=== PATIENT | female | born 1970 | race Two or more races ===

== ENCOUNTER 2021-03-08 20:19 | Emergency (ER) | payer MEDICAID ==
[~2021-03-08] VITALS: Ht 160 cm; Wt 63.5 kg
--- NOTE | 2021-03-08 21:00 | NUR ---
PT [facility] FOR GT PLACEMENT. PT ARRIVED W/ A F/C IN PLACED IN GT STOMA. PT IS IN A WHEELCHAIR AND ALERT.
[2021-03-08] MEDS ORDERED: DIATR MEGLU/DIATRIZOATE SODIUM 30 ML BOTTLE (GASTROGRAPHIN) ONE (21:20)
--- NOTE | 2021-03-08 21:44 | NUR ---
Bon sanchez in ED - 03/08/21 at 2145 by ZANE Patient discharged to home in stable condition. Written and verbal after care instructions given. Patient verbalizes understanding of instruction. RX given pt alert asymptomatic
--- NOTE | 2021-03-08 22:34 | NUR ---
PT IS MEDICALLY STABLE FOR D/C PER MD. DRESSING CHANGE ON GT SITE PROVIDED . GT PATENT. Patient discharged to home in stable condition. Written and verbal after care instructions given to the CGs who verbalized understanding of instruction. pt was assisted back to the wc.
[2021-03-08 22:36] VITALS: BP 111/68
== END 2021-03-08 22:36 | disposition home or self-care (01) ==
LOC: ER 20:26
DX: K94.23 Gastrostomy malfunction (principal); G40.909 Epilepsy, unspecified, not intractable, without status epilepticus; E11.9 Type 2 diabetes mellitus without complications
CPT/HCPCS: 43762; 74018; 99284; Q9963

== ENCOUNTER 2021-09-10 08:48 | Inpatient (IN) | payer MEDICAID ==
[~2021-09-10] VITALS: Ht 152.4 cm; Wt 47.6 kg
--- NOTE | 2021-09-10 08:54 | NUR ---
CALLED [facility] [phone] PER CHEMA FISCHER NOT A RESIDENT [address] [facility]. [facility] [id number]
--- NOTE | 2021-09-10 09:03 | NUR ---
To ER bed 8, JATIN RA78 From [facility] Yeni [id number] "SOB/Respiratory distress, was seen in [facility] yesterday for the same reasons RA 90% and tachypneic, non verbal, gtube, breathing even and non labored, connected to monitor, awaiting md orders
--- NOTE | 2021-09-10 09:06 | NUR ---
JATIN RUSSELL From [facility] [phone] "SOB/Respiratory distress. Received the patient on non-rebreather mask mask and saturation is at 98%. Attached to the monitor. Will continue t monitor the patient.
--- NOTE | 2021-09-10 09:11 | NUR ---
CORE CARRIER AT THE BEDSIDE
[2021-09-10] MEDS ORDERED: MINE105O TP (09:29)
[2021-09-10] MEDS ORDERED: LA/L175C GT (09:29)
[2021-09-10] MEDS ORDERED: CALA177L16 TP (09:29)
[2021-09-10] MEDS ORDERED: AMIN30LI2 GT (09:29)
[2021-09-10] MEDS ORDERED: LISI1SOL GT (09:29)
[2021-09-10] MEDS ORDERED: CALC1TAB30 GT (09:29)
[2021-09-10] MEDS ORDERED: MAGN400O6 GT (09:29)
[2021-09-10] MEDS ORDERED: METF-440 GT (09:29)
[2021-09-10] MEDS ORDERED: GUAI100S11 GT (09:29)
[2021-09-10] MEDS ORDERED: CHLO473M5 MM (09:29)
[2021-09-10] MEDS ORDERED: ALEN70TA80 GT (09:29)
[2021-09-10] MEDS ORDERED: MULT-16 GT (09:29)
[2021-09-10] MEDS ORDERED: CHOL100043 GT (09:29)
[2021-09-10] MEDS ORDERED: ACET650S26 GT (09:29)
[2021-09-10] MEDS ORDERED: FENO200C GT (09:29)
[2021-09-10] MEDS ORDERED: ALLA266C2 TP (09:29)
[2021-09-10] MEDS ORDERED: DIPH1TAB GT (09:29)
[2021-09-10] MEDS ORDERED: BISA10SU11 RC (09:29)
[2021-09-10] MEDS ORDERED: NUT.237L28 GT (09:29)
[2021-09-10] MEDS ORDERED: VITS5OIN2 TP (09:29)
[2021-09-10] MEDS ORDERED: INSU100V27 SQ (09:29)
[2021-09-10] MEDS ORDERED: ESOM20CA GT (09:29)
[2021-09-10] MEDS ORDERED: SIME-3 GT (09:29)
[2021-09-10] MEDS ORDERED: VALP250S4 GT (09:29)
[2021-09-10] MEDS ORDERED: ZINC50TA69 GT (09:29)
[2021-09-10] MEDS ORDERED: ATEN50TA GT (09:29)
[2021-09-10] MEDS ORDERED: SENN8.8S19 GT (09:29)
[2021-09-10] MEDS ORDERED: MAGN400T26 GT (09:29)
--- NOTE | 2021-09-10 09:33 | NUR ---
[facility] [phone]
--- NOTE | 2021-09-10 09:34 | NUR ---
SISTER GRAEME [phone]
[2021-09-10 09:41] LABS: BASOPHILS # (AUTO) 0.1 K/uL (0.0-0.2); BASOPHILS % (AUTO) 0.6 % (0.0-2.0); EOSINOPHILS % (AUTO) 0.6 % (0.0-6.0); HEMATOCRIT 34 % (33-45); HEMOGLOBIN 11.1 g/dL (11.5-14.8); LYMPHOCYTES # (AUTO) 3.7 K/uL (0.8-4.8); LYMPHOCYTES % (AUTO) 39.9 % (20.0-44.0); MEAN CORPUSCULAR HGB CONC 33 g/dl (31.0-36.0); MEAN CORPUSCULAR VOLUME 104 fL (82-100); MONOCYTES # (AUTO) 0.9 K/uL (0.1-1.30); MONOCYTES % (AUTO) 10.1 % (2.0-12.0); NEUTROPHILS # (AUTO) 4.5 K/uL (1.8-8.9); NEUTROPHILS % (AUTO) 48.8 % (43.0-81.0); PLATELET COUNT (AUTO) 144 K/uL (150-450); RED BLOOD CELL COUNT(AUTO) 3.29 MIL/uL (4.0-5.2); WHITE BLOOD COUNT (AUTO) 9.2 K/uL (4.3-11.0)
[2021-09-10 10:23] LABS: ALANINE AMINOTRANSFERASE 13 U/L (12-78); ALKALINE PHOSPHATASE 110 U/L (46-116); ASPARTATE AMINOTRANSFERASE 18 U/L (15-37); BILIRUBIN,TOTAL 0.2 mg/dL (0.2-1.0); CALCIUM, SERUM 9.8 mg/dL (8.5-10.1); CARBON DIOXIDE 31 mmol/L (21-32); CHLORIDE 121 mmol/L (98-107); CREATININE 0.5 mg/dL (0.6-1.3); GLUCOSE 180 mg/dL (74-106); POTASSIUM 3.3 mmol/L (3.5-5.1); TOTAL PROTEIN, SERUM 5.4 g/dL (6.4-8.2); UREA NITROGEN, BLOOD 23 mg/dL (7-18)
[2021-09-10] MEDS ORDERED: VANCOMYCIN 1 GM in IV D5W 250 ML IV ONE (10:30)
[2021-09-10] MEDS ORDERED: PIPERACILLIN /TAZOBACTAM 3.375 G in IV D5W 50 ML IV SCH (10:30)
[2021-09-10] MEDS ORDERED: FUROSEMIDE 40 MG/4 ML VIAL IV SCH (10:30)
[2021-09-10 10:39] LABS: BILIRUBIN,DIRECT 0.1 mg/dL (0.0-0.2)
--- NOTE | 2021-09-10 10:43 | NUR ---
Unable to give IV meds due to no peripheral or central line. Dr Segovia attampted to place a central line, however, not successfull.
[2021-09-10 10:45] LABS: ALBUMIN 1.3 g/dL (3.4-5.0); SODIUM SERUM 157 mmol/L (136-145)
--- NOTE | 2021-09-10 10:48 | NUR ---
WAITING FOR MIDLINE NURSE TO INSERT MID LINE. LOVENOX WILL GIVEN AFTER INSERTION ON THE LINE.
--- NOTE | 2021-09-10 10:49 | NUR ---
PER NURSE SUP, MIDLINE NURSE WILL COME IN 20MINS
--- NOTE | 2021-09-10 11:24 | NUR ---
MIDLINE/CENTRAL LINE NURSE AT THE BEDSIDE
[2021-09-10] MEDS ORDERED: IV D5W 1,000 ML IV ONE (11:30)
[2021-09-10] MEDS ORDERED: ZOSYN IVPB 4.5 G in IV D5W 50ml IV SCH (12:00)
--- NOTE | 2021-09-10 12:18 | NUR ---
STAT CHEST X-RAY PER DR COVLIN FOR S/P PICC LINE INSERTION
--- NOTE | 2021-09-10 12:21 | NUR ---
PIGS FEET FINISHER AT THE BEDSIDE
[2021-09-10 12:33] LABS: BAND % (MANUAL) 6 % (0.0-5.0); LYMPHOCYTES % (MANUAL) 41 % (16-48); MONOCYTES % (MANUAL) 5 % (0-11.0); NEUTROPHILS % (MANUAL) 48 (42-76)
--- NOTE | 2021-09-10 12:34 | NUR ---
WAITING FOR CHEST X-RAY RESULT FOR PICC LINE PLACEMENT CONFIRMATION. ONCE CONFIRMED IV MEDS WILL BE GIVEN.
[2021-09-10] MEDS ORDERED: DEXAMETHASONE SOD PHOSPHATE 10 MG/ML VIAL ONE (12:37)
[2021-09-10] MEDS ORDERED: ENOXAPARIN SODIUM 40 MG/0.4 ML DISP.SYRIN SQ ONE (12:37)
--- NOTE | 2021-09-10 12:58 | NUR ---
LAB CALLED LACTIC ACID 2.4 MD AWARE
[2021-09-10] MEDS: ENOXAPARIN SODIUM 40 MG/0.4 ML DISP.SYRIN SQ SCH (13:00)
[2021-09-10] MEDS ORDERED: ZOSYN IVPB 4.5 G in IV D5W 50ml IV ONE (13:00)
--- NOTE | 2021-09-10 13:04 | NUR ---
PER PHARMACY (NESTOR), RAJESH ERAZO PER DR ROSA
--- NOTE | 2021-09-10 13:29 | NUR ---
ROOM 109
--- NOTE | 2021-09-10 13:47 | NUR ---
REPORT GIVEN NURSE GERMANIA FOR WILLIE
--- NOTE | 2021-09-10 14:24 | NUR ---
THE PATIENT IS TRANSFERED TO ROOM 109 IN STABLE CONDITION AND PER ACLS POLICY
[2021-09-10] MEDS ORDERED: ENOXAPARIN SODIUM 40 MG/0.4 ML DISP.SYRIN SQ SCH (14:30)
[2021-09-10] MEDS ORDERED: Z GUARD REMEDY 4 OZ OINT TP PRN (14:30)
[2021-09-10] MEDS ORDERED: MORPHINE SULFATE INJ 2 MG/ML DISP.SYRIN IV PRN (14:30)
[2021-09-10] MEDS ORDERED: ONDANSETRON HCL/PF 4 MG/2 ML VIAL IVP PRN (14:30)
[2021-09-10 16:00] VITALS: BP 121/67
[2021-09-10] MEDS ORDERED: VANCOMYCIN 1 GM in IV D5W 250 ML IV SCH (19:00)
--- NOTE | 2021-09-10 19:31 | NUR ---
RN NOTE PT RESTING IN BED, ON O2 VIA NC @2L WITH O2 SAT OF 98. NOT IN RESPIRATORY DISTRESS. NEEDS ATTENDED. ALL SAFETY MEASURES MAINTAINED.
--- NOTE | 2021-09-10 19:44 | NUR ---
RN OPENING NOTES: RECEIVED PT IN BED AWAKE, ALERT/ORIENTED X1, RESPONSIVE TO PAINFUL STIMULI. ON O2 @2L/MIN VIA N/C, O2 SAT 98%. PT TOLERATED WELL. IV ACCESS ON CHEN MIDLINE@18G INTACT AND PATENT. NO BLEEDING NOTED. RUNNING D5W@70CC/HR. NO FACIAL GRIMACING NOTED. NO ACUTE DISTRESS. PT HAS GTUBE. SITE INTACT. AT THIS MOMENT NPO. ALL SAFETY MEASURE IN PLACE. BED ALARM ON. BED SIDE RAILS UP X2, PLACE CALL LIGHT WITH IN REACH. WILL CONTINUE TO MONITOR Addendum: 09/10/21 at 2056 by MCKENZIE DOMINGUEZ RN RN NOTES: IV ACCESS ON CHEN PICC#18G INTACT AND PATENT
[2021-09-10 20:00] VITALS: BP 104/85
[2021-09-10] MEDS: PIPERACILLIN /TAZOBACTAM 3.375 G in IV D5W 50 ML IV SCH (21:04)
[2021-09-11] VITALS: BP 96/48
[2021-09-11 04:00] VITALS: BP 110/56
[2021-09-11] MEDS: PIPERACILLIN /TAZOBACTAM 3.375 G in IV D5W 50 ML IV SCH (05:24)
--- NOTE | 2021-09-11 06:44 | NUR ---
RN CLOSING NOTES: PT IN BED AWAKE, ALERT/ORIENTED X1, RESPONSIVE TO PAINFUL STIMULI. ON O2 @2L/MIN VIA N/C, O2 SAT 98%. PT TOLERATED WELL. IV ACCESS ON CHEN PICC #18G INTACT AND PATENT. NO BLEEDING NOTED. NO FACIAL GRIMACING NOTED. NO ACUTE DISTRESS. PT HAS GTUBE. GT SITE SITE INTACT AND PATENT. REMAIN NPO. DUE IV MEDS GIVEN ORDER. ALL SAFETY MEASURE IN PLACE. BED ALARM ON. BED SIDE RAILS UP X2, PLACE CALL LIGHT WITH IN REACH. WILL ENDORSE TO MORNING SHIFT NURSE.
[2021-09-11 07:29] LABS: BASOPHILS % (AUTO) 0.4 % (0.0-2.0); EOSINOPHILS % (AUTO) 0.1 % (0.0-6.0); HEMATOCRIT 28 % (33-45); HEMOGLOBIN 9.4 g/dL (11.5-14.8); LYMPHOCYTES # (AUTO) 2.6 K/uL (0.8-4.8); LYMPHOCYTES % (AUTO) 32.4 % (20.0-44.0); MEAN CORPUSCULAR HGB CONC 33 g/dl (31.0-36.0); MEAN CORPUSCULAR VOLUME 102 fL (82-100); MONOCYTES # (AUTO) 0.3 K/uL (0.1-1.30); MONOCYTES % (AUTO) 4.1 % (2.0-12.0); NEUTROPHILS # (AUTO) 5.1 K/uL (1.8-8.9); PLATELET COUNT (AUTO) 143 K/uL (150-450); RED BLOOD CELL COUNT(AUTO) 2.78 MIL/uL (4.0-5.2); WHITE BLOOD COUNT (AUTO) 8.2 K/uL (4.3-11.0)
--- NOTE | 2021-09-11 07:50 | NUR ---
RN OPENING NOTES PT IN BED AWAKE, ALERT/ORIENTED X1, RESPONSIVE TO PAINFUL STIMULI. ON O2 @3L/MIN VIA N/C, .IV ACCESS ON CHEN PICC #18G INTACT AND PATENT. NO BLEEDING NOTED. NO FACIAL GRIMACING NOTED. NO ACUTE DISTRESS. PT HAS G TUBE. ALL SAFETY MEASURE IN PLACE. BED ALARM ON. BED SIDE RAILS UP X2, PLACE CALL LIGHT WITH IN REACH.
[2021-09-11 08:00] VITALS: BP 105/68
[2021-09-11] MEDS: PANTOPRAZOLE 40 MG VIAL IV SCH (08:47)
[2021-09-11] MEDS: DEXAMETHASONE SOD PHOSPHATE 10 MG/ML VIAL IV SCH (08:47)
[2021-09-11 08:49] LABS: CALCIUM, SERUM 9.1 mg/dL (8.5-10.1); CREATININE 0.4 mg/dL (0.6-1.3); MAGNESIUM 2.4 mg/dL (1.8-2.4); PHOSPHORUS 4.2 mg/dL (2.5-4.9); POTASSIUM 3.4 mmol/L (3.5-5.1)
[2021-09-11] MEDS ORDERED: DEXAMETHASONE SOD PHOSPHATE 4 MG/ML VIAL IV SCH (09:00)
[2021-09-11 09:53] LABS: THYROID STIMULATING HORMONE 3.395 uIU/mL (0.358-3.74)
[2021-09-11 10:02] LABS: BAND % (MANUAL) 12 % (0.0-5.0); LYMPHOCYTES % (MANUAL) 30 % (16-48); METAMYELOCYTES % 2 % (0-0); MONOCYTES % (MANUAL) 2 % (0-11.0); MYELOCYTES % 2 % (0-0); NEUTROPHILS % (MANUAL) 52 (42-76)
[2021-09-11 12:00] VITALS: BP 116/75
[2021-09-11] MEDS: PIPERACILLIN /TAZOBACTAM 3.375 G in IV D5W 100 ML IV SCH ×2 (12:42→20:30)
[2021-09-11 16:00] VITALS: BP 112/86
[2021-09-11] MEDS: GLUCERNA 1.2 1,000 ML BOTTLE NG SCH (17:00)
--- NOTE | 2021-09-11 19:01 | NUR ---
RN CLOSING NOTES PT IN BED AWAKE, ALERT/ORIENTED X1, RESPONSIVE TO PAINFUL STIMULI. ON O2 @3L/MIN VIA N/C, .IV ACCESS ON CHEN PICC #18G INTACT AND PATENT. NO BLEEDING NOTED. NO FACIAL GRIMACING NOTED. NO ACUTE DISTRESS. PT HAS G TUBE. ALL SAFETY MEASURE IN PLACE. BED ALARM ON. BED SIDE RAILS UP X2, PLACE CALL LIGHT WITH IN REACH. WILL ENDORSE TO NIGHT NURSE FOR WILLIE.
[2021-09-11 20:00] VITALS: BP 103/59
[2021-09-12] VITALS: BP 91/47
[2021-09-12] MEDS ORDERED: IV D5W 1,000 ML IV ONE (00:30)
[2021-09-12 04:00] VITALS: BP 99/51
[2021-09-12] MEDS: PIPERACILLIN /TAZOBACTAM 3.375 G in IV D5W 100 ML IV SCH ×3 (04:43→20:34)
[2021-09-12 06:41] LABS: BASOPHILS % (AUTO) 0.4 % (0.0-2.0); HEMATOCRIT 25 % (33-45); HEMOGLOBIN 8.1 g/dL (11.5-14.8); LYMPHOCYTES % (AUTO) 34.5 % (20.0-44.0); MEAN CORPUSCULAR HGB CONC 32 g/dl (31.0-36.0); MEAN CORPUSCULAR VOLUME 103 fL (82-100); MONOCYTES # (AUTO) 0.9 K/uL (0.1-1.30); MONOCYTES % (AUTO) 10.2 % (2.0-12.0); NEUTROPHILS # (AUTO) 4.8 K/uL (1.8-8.9); NEUTROPHILS % (AUTO) 54.9 % (43.0-81.0); PLATELET COUNT (AUTO) 198 K/uL (150-450); RED BLOOD CELL COUNT(AUTO) 2.43 MIL/uL (4.0-5.2); WHITE BLOOD COUNT (AUTO) 8.6 K/uL (4.3-11.0)
--- NOTE | 2021-09-12 07:23 | NUR ---
RN OPENING NOTE RECEIVE REPORT FROM OIL PUMP STATION OPERATOR CHIEF NURSE. PATIENT IN STABLE CONDITION WITH NO SIGN OF DISTRESS. RESTING COMFORTABLY IN BED AND RECEIVING IV FLUID D5W @100ML/HR. WILL FOLLOW UP AM LAB AND DOCTOR ORDERS. PROPER ISOLATION PRECAUTION IN PLACE. ALL SAFETY MEASURE IN PLACE. BED ON LOWEST POSITION WITH HOB ELEVATED AND 3 SIDE RAIL UP. KIERRA LIGHT WITHIN REACH. WILL CONTINUE TO MONITOR.
[2021-09-12 08:00] VITALS: BP 72/45
[2021-09-12] MEDS: PANTOPRAZOLE 40 MG VIAL IV SCH (08:36)
[2021-09-12] MEDS: DEXAMETHASONE SOD PHOSPHATE 10 MG/ML VIAL IV SCH (08:37)
[2021-09-12] MEDS: ENOXAPARIN SODIUM 40 MG/0.4 ML DISP.SYRIN SQ SCH (08:39)
[2021-09-12 11:30] LABS: CALCIUM, SERUM 8.5 mg/dL (8.5-10.1); CREATININE 0.6 mg/dL (0.6-1.3); MAGNESIUM 2.6 mg/dL (1.8-2.4); PHOSPHORUS 4.6 mg/dL (2.5-4.9); POTASSIUM 3.5 mmol/L (3.5-5.1)
[2021-09-12 12:00] VITALS: BP 79/56
[2021-09-12] MEDS ORDERED: CHLORHEXIDINE GLUCONATE 15 ML UDC MM SCH (15:00)
[2021-09-12] MEDS ORDERED: BISACODYL SUPP (10 MG) 10 MG/SUPP.RECT SUPP.RECT RC PRN (15:00)
[2021-09-12 15:38] LABS: BAND % (MANUAL) 2 % (0.0-5.0); NEUTROPHILS % (MANUAL) 64 (42-76)
[2021-09-12 15:39] LABS: LYMPHOCYTES % (MANUAL) 31 % (16-48); MONOCYTES % (MANUAL) 3 % (0-11.0)
[2021-09-12 16:00] VITALS: BP 87/53
[2021-09-12] MEDS ORDERED: DEXTROSE 50%-WATER 50 ML DISP.SYRIN IV PRN (18:00)
[2021-09-12] MEDS: PROSOURCE / PROSTAT (PYXIS) 30 ML UDC GT SCH (18:17)
[2021-09-12] MEDS: VALPROIC ACID 250 MG/5 ML UDC GT SCH (18:18)
[2021-09-12] MEDS: BLOOD SUGAR DIAGNOSTIC 1 EACH STRIP IN SCH ×2 (18:25→23:09)
[2021-09-12] MEDS: GLUCERNA 1.2 1,000 ML BOTTLE NG SCH (18:31)
[2021-09-12] MEDS: INSULIN REGULAR, HUMAN 100 UNIT/ML 3 ML VIAL SQ PRN ×2 (18:50→23:12)
--- NOTE | 2021-09-12 19:45 | NUR ---
RN OPENING NOTES: PT IN BED AWAKE, ALERT/ORIENTED X1, RESPONSIVE TO PAINFUL STIMULI. ON O2 @2L/MIN VIA N/C AND PT TOLERATED WELL. IV ACCESS ON CHEN PICC #18G INTACT AND PATENT. NO BLEEDING NOTED. NO FACIAL GRIMACING NOTED. NO ACUTE DISTRESS. ON GTUBE FEEDING GLUCERNA 1.2 @50CC/HR . GT SITE SITE INTACT AND PATENT. ALL SAFETY MEASURE IN PLACE. BED ALARM ON. BED SIDE RAILS UP X2, PLACE CALL LIGHT WITH IN REACH.
[2021-09-12 20:00] VITALS: BP 97/53
--- NOTE | 2021-09-12 20:03 | NUR ---
RN CLOSING NOTE REPORT WAS GIVEN TO SEGREGATOR NURSE. PATIENT IN STABLE CONDITION WITH NO SIGN OF DISTRESS. PROPER ISOLATION IN PLACE. ALL SAFETY MEASURE IN PLACE. BED ON LOWEST POSITION WITH HOB ELEVATED. CALL LIGHT WITHIN REACH.
[2021-09-12] MEDS: IV D5W 1,000 ML IV SCH (20:33)
[2021-09-12] MEDS: INSULIN GLARGINE, 100 UNIT/ML CARTRIDGE SQ SCH (23:08)
--- NOTE | 2021-09-12 23:30 | NUR ---
RN NOTES: PT'S BLOOD SUGAR 365, 10 UNITS OF REGULAR INSULIN PER SLIDING SCALE AND LANTUS 5 UNITS GIVEN. NO S/S OF HYPER/HYPOGLYCEMIA. WILL CONTINUE TO MONITOR
[2021-09-13] VITALS: BP 102/64
[2021-09-13] MEDS: IV D5W 1,000 ML IV SCH ×3 (03:54→19:39)
[2021-09-13 04:00] VITALS: BP 128/68
[2021-09-13] MEDS: PIPERACILLIN /TAZOBACTAM 3.375 G in IV D5W 100 ML IV SCH ×3 (04:03→19:55)
[2021-09-13] MEDS: BLOOD SUGAR DIAGNOSTIC 1 EACH STRIP IN SCH ×4 (06:06→23:32)
[2021-09-13] MEDS: INSULIN REGULAR, HUMAN 100 UNIT/ML 3 ML VIAL SQ PRN ×4 (06:08→23:39)
[2021-09-13 06:25] LABS: BASOPHILS % (AUTO) 0.3 % (0.0-2.0); HEMATOCRIT 24 % (33-45); HEMOGLOBIN 7.6 g/dL (11.5-14.8); LYMPHOCYTES # (AUTO) 4.3 K/uL (0.8-4.8); LYMPHOCYTES % (AUTO) 41.5 % (20.0-44.0); MEAN CORPUSCULAR HGB CONC 32 g/dl (31.0-36.0); MEAN CORPUSCULAR VOLUME 109 fL (82-100); MONOCYTES # (AUTO) 1.2 K/uL (0.1-1.30); MONOCYTES % (AUTO) 11.3 % (2.0-12.0); NEUTROPHILS # (AUTO) 4.8 K/uL (1.8-8.9); NEUTROPHILS % (AUTO) 46.9 % (43.0-81.0); PLATELET COUNT (AUTO) 240 K/uL (150-450); RED BLOOD CELL COUNT(AUTO) 2.19 MIL/uL (4.0-5.2); WHITE BLOOD COUNT (AUTO) 10.3 K/uL (4.3-11.0)
--- NOTE | 2021-09-13 06:47 | NUR ---
RN CLOSING NOTES: PT IN BED AWAKE, ALERT/ORIENTED X1, RESPONSIVE TO PAINFUL STIMULI. ON O2 @2L/MIN VIA N/C, O2 SAT 97% AND PT TOLERATED WELL. IV ACCESS ON CHEN PICC #18G INTACT AND PATENT. NO BLEEDING NOTED. RUNNING D5W @100CC/HR. NO FACIAL GRIMACING NOTED. NO ACUTE DISTRESS. ON GTUBE FEEDING GLUCERNA 1.2 @50CC/HR . GT SITE SITE INTACT AND PATENT. BLOOD SUGAR 331, 8 UNITS OF REGULAR INSULIN GIVEN. ALL MEDS GIVEN ORDER. ALL SAFETY MEASURE IN PLACE. BED ALARM ON. BED SIDE RAILS UP X2, PLACE CALL LIGHT WITH IN REACH. WILL ENDORSE TO MORNING SHIFT NURSE.
[2021-09-13 07:24] LABS: CALCIUM, SERUM 7.1 mg/dL (8.5-10.1); CREATININE 0.5 mg/dL (0.6-1.3); MAGNESIUM 2.1 mg/dL (1.8-2.4); PHOSPHORUS 3.1 mg/dL (2.5-4.9)
--- NOTE | 2021-09-13 07:31 | NUR ---
RN OPENING NOTES PT IN BED AWAKE, ALERT/ORIENTED X1, RESPONSIVE TO PAINFUL STIMULI. ON O2 @2L/MIN VIA N/C, .IV ACCESS ON CHEN PICC #18G INTACT AND PATENT. NO BLEEDING NOTED. NO FACIAL GRIMACING NOTED. NO ACUTE DISTRESS. PT HAS G TUBE CURRENTLY RUNNING GLUCERNA AT 50ML/HR. ALL SAFETY MEASURE IN PLACE. BED ALARM ON. BED SIDE RAILS UP X2, PLACE CALL LIGHT WITH IN REACH.
[2021-09-13 08:00] VITALS: BP 110/61
[2021-09-13] MEDS: ATENOLOL 50 MG TABLET GT SCH (08:26)
[2021-09-13] MEDS: PANTOPRAZOLE 40 MG VIAL IV SCH (08:26)
[2021-09-13] MEDS: DEXAMETHASONE SOD PHOSPHATE 10 MG/ML VIAL IV SCH (08:27)
[2021-09-13] MEDS: ZINC SULFATE 220 MG CAPSULE GT SCH (08:27)
[2021-09-13] MEDS: MULTIVITAMINS,THERAGRAN 1 UDTAB TABLET GT SCH (08:27)
[2021-09-13] MEDS: CHOLECALCIFEROL 1,000 UNIT TABLET (VIT D3) GT SCH (08:27)
[2021-09-13] MEDS: ENOXAPARIN SODIUM 40 MG/0.4 ML DISP.SYRIN SQ SCH (08:28)
[2021-09-13] MEDS: PROSOURCE / PROSTAT (PYXIS) 30 ML UDC GT SCH ×2 (08:31→16:56)
--- NOTE | 2021-09-13 08:57 | NUR ---
RN NOTE RECEIVED CRITICAL LAB FOR GLUCOSE OF 731. INFORMED BASIN TENDER EDUAR HOBSON. PER BASIN TENDER REDRAW GLUCOSE FROM DIFFERENT SITE. WILL FOLLOW ORDER.
[2021-09-13 12:00] VITALS: BP 113/69
[2021-09-13] MEDS ORDERED: AZITHROMYCIN 250 MG TABLET PO SCH (12:00)
[2021-09-13] MEDS: POTASSIUM CL. PREMIX PERIPHER. 50 ML IV SCH ×6 (12:10→17:57)
[2021-09-13 13:19] LABS: CALCIUM, SERUM 7.7 mg/dL (8.5-10.1); CREATININE 0.5 mg/dL (0.6-1.3); POTASSIUM 4.3 mmol/L (3.5-5.1)
[2021-09-13] MEDS: ACETAMINOPHEN 325 MG TABLET PO PRN (13:28)
[2021-09-13] MEDS: GLUCERNA 1.2 1,000 ML BOTTLE NG SCH (15:13)
[2021-09-13 15:31] LABS: BAND % (MANUAL) 6 % (0.0-5.0); LYMPHOCYTES % (MANUAL) 44 % (16-48); METAMYELOCYTES % 1 % (0-0); MONOCYTES % (MANUAL) 12 % (0-11.0); NEUTROPHILS % (MANUAL) 37 (42-76)
[2021-09-13 16:00] VITALS: BP 128/75
[2021-09-13] MEDS: VALPROIC ACID 250 MG/5 ML UDC GT SCH (17:57)
--- NOTE | 2021-09-13 18:38 | NUR ---
RN CLOSING NOTES PT IN BED AWAKE, ALERT/ORIENTED X1, RESPONSIVE TO PAINFUL STIMULI. ON O2 @4L/MIN VIA N/C, .IV ACCESS ON CHEN PICC #18G INTACT AND RUNNING 125MLS/HR D5. NO BLEEDING NOTED. NO FACIAL GRIMACING NOTED. NO ACUTE DISTRESS. PT HAS G TUBE RUNNING GLUCERNA 50ML/HR. ALL SAFETY MEASURE IN PLACE. BED ALARM ON. BED SIDE RAILS UP X2, PLACE CALL LIGHT WITH IN REACH. WILL ENDORSE TO NIGHT NURSE FOR WILLIE.
--- NOTE | 2021-09-13 19:10 | NUR ---
RN NOTE RECEIVED PATIENT IN BED RESTING ALERT ORIENTED X0 OPEN EYES ON 4L OXYGEN VIA NASAL CANNULA O2:99% IV SITE IS ON LEFT UPPER ARM PICC LINE INTACT PATENT ON IV HYDRATION D5 125CC/HR,ON G-TUBE GLUCERNA 1.2 50CC/HR CHECKED PLACEMENT IN PLACE,NO RESIDUAL NOTED,SAFETY MEASURE IMPLEMENT,HEAD OF THE BED ELEVATED,BED IN LOW POSITON AND LOCKED CONTINUE TO MONITOR.
[2021-09-13 20:00] VITALS: BP 121/67
[2021-09-13] MEDS: INSULIN GLARGINE, 100 UNIT/ML CARTRIDGE SQ SCH (21:53)
[2021-09-14] VITALS: BP 113/68
[2021-09-14 04:00] VITALS: BP 104/59
[2021-09-14] MEDS: PIPERACILLIN /TAZOBACTAM 3.375 G in IV D5W 100 ML IV SCH ×3 (04:31→20:28)
[2021-09-14] MEDS: BLOOD SUGAR DIAGNOSTIC 1 EACH STRIP IN SCH ×4 (06:05→23:08)
[2021-09-14] MEDS: INSULIN REGULAR, HUMAN 100 UNIT/ML 3 ML VIAL SQ PRN ×3 (06:06→23:13)
[2021-09-14 06:14] LABS: BASOPHILS % (AUTO) 0.3 % (0.0-2.0); HEMATOCRIT 27 % (33-45); HEMOGLOBIN 9.3 g/dL (11.5-14.8); LYMPHOCYTES # (AUTO) 6.1 K/uL (0.8-4.8); LYMPHOCYTES % (AUTO) 46.4 % (20.0-44.0); MEAN CORPUSCULAR HGB CONC 34 g/dl (31.0-36.0); MEAN CORPUSCULAR VOLUME 101 fL (82-100); MONOCYTES # (AUTO) 1.5 K/uL (0.1-1.30); MONOCYTES % (AUTO) 11.1 % (2.0-12.0); NEUTROPHILS # (AUTO) 5.5 K/uL (1.8-8.9); NEUTROPHILS % (AUTO) 42.2 % (43.0-81.0); PLATELET COUNT (AUTO) 320 K/uL (150-450); WHITE BLOOD COUNT (AUTO) 13.1 K/uL (4.3-11.0)
--- NOTE | 2021-09-14 06:52 | NUR ---
RN NOTE PATIENT REMAINS ON ALERT ORIENTED 0 NON VERBAL ON 4L OXYGEN VIA NASAL CANNULA O2:100% NO SOB NOT ACUTE DISTRESS NOTED ALL DUE MEDS GIVEN MD ORDERED KEPT CLEAN AND DRY ALL THE TIME,REPOSITIONED EVERY 2 HOURS,KEPT HEAD OF THE BED ELEVATED,ALL NEEDS MET ENDORSE NEXT COMING SHIFT FOR CONTINUATION OF CARE
[2021-09-14 07:08] LABS: CALCIUM, SERUM 8.1 mg/dL (8.5-10.1); CREATININE 0.4 mg/dL (0.6-1.3); MAGNESIUM 2.2 mg/dL (1.8-2.4); POTASSIUM 3.8 mmol/L (3.5-5.1)
[2021-09-14 08:00] VITALS: BP 122/70
[2021-09-14] MEDS: CHOLECALCIFEROL 1,000 UNIT TABLET (VIT D3) GT SCH (08:41)
[2021-09-14] MEDS: ZINC SULFATE 220 MG CAPSULE GT SCH (08:41)
[2021-09-14] MEDS: PANTOPRAZOLE 40 MG VIAL IV SCH (08:41)
[2021-09-14] MEDS: MULTIVITAMINS,THERAGRAN 1 UDTAB TABLET GT SCH (08:41)
[2021-09-14] MEDS: DEXAMETHASONE SOD PHOSPHATE 10 MG/ML VIAL IV SCH (08:42)
[2021-09-14] MEDS: ATENOLOL 50 MG TABLET GT SCH (08:42)
[2021-09-14] MEDS: ENOXAPARIN SODIUM 40 MG/0.4 ML DISP.SYRIN SQ SCH (08:48)
[2021-09-14] MEDS: PROSOURCE / PROSTAT (PYXIS) 30 ML UDC GT SCH ×2 (08:49→16:47)
[2021-09-14 12:00] VITALS: BP 122/70
[2021-09-14 12:51] LABS: BAND % (MANUAL) 2 % (0.0-5.0); LYMPHOCYTES % (MANUAL) 50 % (16-48); MONOCYTES % (MANUAL) 12 % (0-11.0); NEUTROPHILS % (MANUAL) 34 (42-76); REACTIVE LYMPHOCYTES 2 % (0-0)
[2021-09-14 16:00] VITALS: BP 124/62
[2021-09-14] MEDS: VALPROIC ACID 250 MG/5 ML UDC GT SCH (16:47)
--- NOTE | 2021-09-14 19:30 | NUR ---
RN NOTES RECEIVED PT FOR CONTINUITY OF CARE. PATIENT A/OX0 IN NO S/SX OF ACUTE DISTRESS AT THIS TIME; CURRENTLY ON 2L OF 02 VIA NC; WITH 02 SAT >95% AT THIS TIME. WILL ENSURE SAFETY MEASURES WITHIN THE SHIFT. PATIENT BED ALARM IS ON. HEAD OF BED ELEVATED. BED IS LOCKED, IN LOWEST POSITION AND SIDE RAILS UP. CALL LIGHT WITHIN REACH OF THE PATIENT. APPLICABLE ISOLATION PRECAUTIONS IN PLACE. WILL CONTINUE TO MONITOR AND REASSESS FOR ANY CHANGES AND WILL CARRY OUT ANY ONGOING AND ACTIVE MD ORDER.
[2021-09-14 20:00] VITALS: BP 94/76
[2021-09-14] MEDS: INSULIN GLARGINE, 100 UNIT/ML CARTRIDGE SQ SCH (23:13)
[2021-09-15] VITALS (7 sets, daily range): BP systolic 97–140; BP diastolic 51–98
--- NOTE | 2021-09-15 | NUR ---
RN NOTES PATIENT REMAINED TO BE IN NO SIGNS OF ACUTE RESPIRATORY DISTRESS , VITAL SIGNS STABLE AT THIS TIME. REGULAR TURNING AND REPOSITIONING DONE Q2H AND SUCTIONING RENDERED. WILL CONTINUE TO MONITOR AND REASSESS FOR ANY CHANGES THROUGHOUT THE SHIFT.
[2021-09-15] MEDS: PIPERACILLIN /TAZOBACTAM 3.375 G in IV D5W 100 ML IV SCH ×3 (04:04→20:23)
[2021-09-15] MEDS: GLUCERNA 1.2 1,000 ML BOTTLE NG SCH (04:05)
[2021-09-15] MEDS: BLOOD SUGAR DIAGNOSTIC 1 EACH STRIP IN SCH ×4 (05:11→23:09)
[2021-09-15] MEDS: INSULIN REGULAR, HUMAN 100 UNIT/ML 3 ML VIAL SQ PRN ×4 (05:18→23:12)
[2021-09-15 06:23] LABS: BASOPHILS % (AUTO) 0.3 % (0.0-2.0); EOSINOPHILS % (AUTO) 0.1 % (0.0-6.0); HEMATOCRIT 28 % (33-45); HEMOGLOBIN 8.8 g/dL (11.5-14.8); LYMPHOCYTES % (AUTO) 41.3 % (20.0-44.0); MEAN CORPUSCULAR HGB CONC 32 g/dl (31.0-36.0); MEAN CORPUSCULAR VOLUME 104 fL (82-100); MONOCYTES # (AUTO) 1.2 K/uL (0.1-1.30); MONOCYTES % (AUTO) 9.7 % (2.0-12.0); NEUTROPHILS # (AUTO) 5.8 K/uL (1.8-8.9); NEUTROPHILS % (AUTO) 48.6 % (43.0-81.0); PLATELET COUNT (AUTO) 323 K/uL (150-450); RED BLOOD CELL COUNT(AUTO) 2.64 MIL/uL (4.0-5.2)
--- NOTE | 2021-09-15 06:37 | NUR ---
RN CLOSING NOTE: PATIENT REMAINS IN ROOM IN NO SIGNS OF RESPIRATORY DISTRESS, PATIENT STILL ON 2L OF 02 VIA NC;TOLERATING WELL SATURATING @ >95% SP02. STILL ON TUBE FEEDING PRESCRIBED; TOLERATES WELL; FREE WATER FLUSHES OF 20CC Q4H DONE. SAFETY MEASURES IMPLEMENTED, BED IN LOWEST POSITION, LOCKED, SIDE RAILS UP, CALL LIGHT WITHIN REACH. ALL NEEDS AND ORDERS ADDRESSED DURING THE SHIFT. IV ACCESS MAINTAINED INTACT, SECURED AND FLUSHING WELL. ALL DUE MEDS GIVEN ORDERED & SCHEDULED ; PATIENT TOLERATED WELL. PATIENT KEPT CLEAN AND COMFORTABLE WITHIN THE SHIFT. PATIENT ENDORSED TO INCOMING SHIFT RN WITH STABLE VITAL SIGN AND FOR CONTINUITY OF CARE.
[2021-09-15 07:09] LABS: CALCIUM, SERUM 7.9 mg/dL (8.5-10.1); CREATININE 0.5 mg/dL (0.6-1.3); MAGNESIUM 2.1 mg/dL (1.8-2.4); POTASSIUM 3.9 mmol/L (3.5-5.1)
[2021-09-15] MEDS: ENOXAPARIN SODIUM 40 MG/0.4 ML DISP.SYRIN SQ SCH (08:59)
[2021-09-15] MEDS: PANTOPRAZOLE 40 MG/PACK PACK GT SCH (09:00)
[2021-09-15] MEDS: ATENOLOL 50 MG TABLET GT SCH (09:01)
[2021-09-15] MEDS: ZINC SULFATE 220 MG CAPSULE GT SCH (09:01)
[2021-09-15] MEDS: CHOLECALCIFEROL 1,000 UNIT TABLET (VIT D3) GT SCH (09:01)
[2021-09-15] MEDS: DEXAMETHASONE SOD PHOSPHATE 10 MG/ML VIAL IV SCH (09:01)
[2021-09-15] MEDS: MULTIVITAMINS,THERAGRAN 1 UDTAB TABLET GT SCH (09:01)
[2021-09-15] MEDS: PROSOURCE / PROSTAT (PYXIS) 30 ML UDC GT SCH ×2 (09:02→18:18)
[2021-09-15 11:58] LABS: BAND % (MANUAL) 1 % (0.0-5.0); LYMPHOCYTES % (MANUAL) 45 % (16-48); MONOCYTES % (MANUAL) 7 % (0-11.0); NEUTROPHILS % (MANUAL) 46 (42-76); REACTIVE LYMPHOCYTES 1 % (0-0)
[2021-09-15] MEDS ORDERED: ALENDRONATE 70 MG TABLET PO SCH (15:00)
[2021-09-15] MEDS: VALPROIC ACID 250 MG/5 ML UDC GT SCH (18:18)
--- NOTE | 2021-09-15 19:01 | NUR ---
RN CLOSING NOTES PT IN BED AWAKE, ALERT/ORIENTED X1, RESPONSIVE TO PAINFUL STIMULI. ON O2 @4L/MIN VIA N/C, .IV ACCESS ON CHEN PICC #18G INTACT. NO BLEEDING NOTED. NO FACIAL GRIMACING NOTED. NO ACUTE DISTRESS. PT HAS G TUBE RUNNING GLUCERNA 50ML/HR. ALL SAFETY MEASURE IN PLACE. BED ALARM ON. BED SIDE RAILS UP X2, PLACE CALL LIGHT WITH IN REACH. WILL ENDORSE TO NIGHT NURSE FOR WILLIE.
--- NOTE | 2021-09-15 19:35 | NUR ---
RN NOTES RECEIVED PT FOR CONTINUITY OF CARE. PATIENT A/OX0 IN NO S/SX OF ACUTE DISTRESS AT THIS TIME; CURRENTLY ON 4L OF 02 VIA NC; WITH 02 SAT >95% AT THIS TIME. NOTED IV SITE ON L UA PICC LINE ; PATENT, INTACT AND FLUSHING WELL; NO S/S OF INFECTION OR INFILTRATION. PT HAS G TUBE FLUSHING AND PATENT; SITE CLEAN DRY AND INTACT;CONNECTED TO GTUBE FEEDING OF GLUCERNA 1.2 @50CC/HR;TOLERATES WELL; WITH FREE WATER FLUSHES Q4H. WILL ENSURE SAFETY MEASURES WITHIN THE SHIFT. PATIENT BED ALARM IS ON. HEAD OF BED ELEVATED. BED IS LOCKED, IN LOWEST POSITION AND SIDE RAILS UP. CALL LIGHT WITHIN REACH OF THE PATIENT. APPLICABLE ISOLATION PRECAUTIONS IN PLACE. WILL CONTINUE TO MONITOR AND REASSESS FOR ANY CHANGES AND WILL CARRY OUT ANY ONGOING AND ACTIVE MD ORDER.
[2021-09-15] MEDS: INSULIN GLARGINE, 100 UNIT/ML CARTRIDGE SQ SCH (23:11)
[2021-09-16] VITALS: BP 91/50
[2021-09-16] MEDS: GLUCERNA 1.2 1,000 ML BOTTLE NG SCH (02:00)
[2021-09-16] MEDS: PIPERACILLIN /TAZOBACTAM 3.375 G in IV D5W 100 ML IV SCH ×3 (03:20→20:48)
[2021-09-16 04:00] VITALS: BP 117/51
[2021-09-16] MEDS: BLOOD SUGAR DIAGNOSTIC 1 EACH STRIP IN SCH ×3 (05:25→17:17)
[2021-09-16] MEDS: INSULIN REGULAR, HUMAN 100 UNIT/ML 3 ML VIAL SQ PRN ×3 (05:25→18:00)
--- NOTE | 2021-09-16 06:36 | NUR ---
RN CLOSING NOTE: PATIENT REMAINS IN ROOM IN NO SIGNS OF RESPIRATORY DISTRESS, PATIENT STILL ON 4L OF 02 VIA NC;TOLERATING WELL SATURATING @ >95% SP02. STILL ON TUBE FEEDING PRESCRIBED; TOLERATES WELL; FREE WATER FLUSHES OF 20CC Q4H DONE. SAFETY MEASURES IMPLEMENTED, BED IN LOWEST POSITION, LOCKED, SIDE RAILS UP, CALL LIGHT WITHIN REACH. ALL NEEDS AND ORDERS ADDRESSED DURING THE SHIFT. IV ACCESS MAINTAINED INTACT, SECURED AND FLUSHING WELL. ALL DUE MEDS GIVEN ORDERED & SCHEDULED ; PATIENT TOLERATED WELL. PATIENT KEPT CLEAN AND COMFORTABLE WITHIN THE SHIFT. PATIENT ENDORSED TO INCOMING SHIFT RN WITH STABLE VITAL SIGN AND FOR CONTINUITY OF CARE.
--- NOTE | 2021-09-16 07:30 | NUR ---
LIFE COACH AM NOTE: PATIENT IN BED, ON 4L 02 VIA NC;TOLERATING WELL SATURATING @ >95% SP02. NOT IN ANY DISTRESS, RESPIRATION UNLABORED. SR ON MONITOR WITH HR AT 85, NO SIGNS OF PAIN OR DISCOMFORT, CHEN PICC LINE FLUSHES WELL, SITE CLEAR, CDI DRESSING. WITH G TUBE, CHECKED FOR PLACEMENT, ON TUBE FEEDING AT 50ML, WELL TOLERATED. O RESIDUAL. SAFETY MEASURES IMPLEMENTED, BED IN LOWEST POSITION, LOCKED, SIDE RAILS UP, CALL LIGHT WITHIN REACH. PATIENT KEPT CLEAN AND COMFORTABLE. WILL TURN AND REPOSITION Q 2 HOURS. WILL CONTINUE TO MONITOR.
[2021-09-16 08:00] VITALS: BP 131/81
--- NOTE | 2021-09-16 09:30 | NUR ---
RN OTES DUE MEDS GIVEN
[2021-09-16] MEDS: PANTOPRAZOLE 40 MG/PACK PACK GT SCH (09:32)
[2021-09-16] MEDS: ZINC SULFATE 220 MG CAPSULE GT SCH (09:32)
[2021-09-16] MEDS: PROSOURCE / PROSTAT (PYXIS) 30 ML UDC GT SCH ×2 (09:33→17:17)
[2021-09-16] MEDS: CHOLECALCIFEROL 1,000 UNIT TABLET (VIT D3) GT SCH (09:33)
[2021-09-16] MEDS: MULTIVITAMINS,THERAGRAN 1 UDTAB TABLET GT SCH (09:33)
[2021-09-16] MEDS: ATENOLOL 50 MG TABLET GT SCH (09:33)
[2021-09-16] MEDS: ENOXAPARIN SODIUM 40 MG/0.4 ML DISP.SYRIN SQ SCH (09:34)
[2021-09-16 12:00] VITALS: BP 123/72
[2021-09-16] MEDS ORDERED: AZIT250T PO (14:16)
--- NOTE | 2021-09-16 15:43 | NUR ---
RN NOTES SPOKE WITH JORDAN AT FACILITY [phone]. AWARE PATIENT IS GOING BACK TOT [facility] AND WILL BE PICKED UP BY AMBULANCE AT 1700.
[2021-09-16 16:00] VITALS: BP 125/80
[2021-09-16] MEDS: VALPROIC ACID 250 MG/5 ML UDC GT SCH (17:20)
[2021-09-16 20:00] VITALS: BP 118/74
[2021-09-16] MEDS: INSULIN GLARGINE, 100 UNIT/ML CARTRIDGE SQ SCH (22:43)
[2021-09-17] VITALS: BP 113/65
[2021-09-17] MEDS: BLOOD SUGAR DIAGNOSTIC 1 EACH STRIP IN SCH ×5 (00:10→23:03)
[2021-09-17] MEDS: INSULIN REGULAR, HUMAN 100 UNIT/ML 3 ML VIAL SQ PRN ×4 (00:18→23:05)
[2021-09-17] MEDS: GLUCERNA 1.2 1,000 ML BOTTLE NG SCH (02:14)
[2021-09-17 04:00] VITALS: BP 101/59
[2021-09-17] MEDS: PIPERACILLIN /TAZOBACTAM 3.375 G in IV D5W 100 ML IV SCH ×3 (04:25→20:15)
--- NOTE | 2021-09-17 06:37 | NUR ---
REHABILITATION DIRECTOR CLOSING NOTE: PATIENT ASLEEP, WAKES UP ON NAME AND TOUCH. NON VERBAL, ON 4L 02 VIA NC;TOLERATING WELL SATURATING @ >95% SP02. NOT IN ANY DISTRESS, RESPIRATION UNLABORED. SR ON MONITOR WITH HR AT 80s, NO SIGNS OF PAIN OR DISCOMFORT, CHEN PICC LINE FLUSHES WELL, SITE CLEAR, CDI DRESSING. WITH G TUBE, CHECKED FOR PLACEMENT, ON TUBE FEEDING AT 50ML, WELL TOLERATED. O RESIDUAL. SAFETY MEASURES IMPLEMENTED, BED IN LOWEST POSITION, LOCKED, SIDE RAILS UP, CALL LIGHT WITHIN REACH. PATIENT KEPT CLEAN AND COMFORTABLE. TURNED AND REPOSITIONED Q 2 HOURS. MITTEN ON LEFT HAND RELEASED AND CHECKED FOR CIRCULATION Q 2 HOURS. ALL NEEDS MET AT THIS TIME. WILL ENDORSE TO NEXT SHIFT FOR WILLIE.
--- NOTE | 2021-09-17 07:45 | NUR ---
TRANSPORTATION PLANNING ENGINEER NOTE: PATIENT AWAKE. NON VERBAL, ON 4L 02 VIA NC;TOLERATING WELL. NOT IN ANY DISTRESS, RESPIRATION UNLABORED. SR ON MONITOR SR , NO SOB NOTED AT THIS TIME , NO SIGNS OF PAIN OR DISCOMFORT, CHEN PICC LINE FLUSHES WELL, WITH G TUBE, CHECKED FOR PLACEMENT, ON TUBE FEEDING AT 50ML, WELL TOLERATED. NO RESIDUAL. SAFETY MEASURES IMPLEMENTED, BED IN LOWEST POSITION, LOCKED, SIDE RAILS UP, CALL LIGHT WITHIN REACH. PATIENT KEPT CLEAN AND COMFORTABLE. WILL MONITOR
[2021-09-17 08:00] VITALS: BP 102/51
[2021-09-17] MEDS: CHOLECALCIFEROL 1,000 UNIT TABLET (VIT D3) GT SCH (08:41)
[2021-09-17] MEDS: MULTIVITAMINS,THERAGRAN 1 UDTAB TABLET GT SCH (08:41)
[2021-09-17] MEDS: PANTOPRAZOLE 40 MG/PACK PACK GT SCH (08:41)
[2021-09-17] MEDS: ZINC SULFATE 220 MG CAPSULE GT SCH (08:41)
[2021-09-17] MEDS: ATENOLOL 50 MG TABLET GT SCH (08:42)
[2021-09-17] MEDS: PROSOURCE / PROSTAT (PYXIS) 30 ML UDC GT SCH ×2 (08:42→16:38)
[2021-09-17] MEDS: ENOXAPARIN SODIUM 40 MG/0.4 ML DISP.SYRIN SQ SCH (08:43)
[2021-09-17 12:00] VITALS: BP 128/51
--- NOTE | 2021-09-17 13:30 | NUR ---
supervisor telephone answering service note rounds made, keep clean dry, made a bm, turn reposition , cont g tube feeding as ordered, keep hob elevated as tolerate spoke with sister, update patient condition
[2021-09-17 16:00] VITALS: BP 117/66
[2021-09-17] MEDS: VALPROIC ACID 250 MG/5 ML UDC GT SCH (17:05)
--- NOTE | 2021-09-17 18:11 | NUR ---
telecom network manager note noted with chest congestion , dr Duke Bernard notified with order chest x ray order carried out Addendum: 09/17/21 at 1824 by SHANNON AGUILERA RN telecom network manager note chest ray done as ordered
--- NOTE | 2021-09-17 19:40 | NUR ---
RN OPENING NOTES RECEIVED PT IN BED, AWAKE, ALERT/ORIENTED X1, RESPONSIVE TO PAINFUL STIMULI. ON O2 @4L/MIN VIA N/C AND PT TOLERATED WELL. IV ACCESS ON CHEN PICC #18G INTACT AND PATENT. NO BLEEDING NOTED. NO FACIAL GRIMACING NOTED. NO ACUTE DISTRESS. G TUBE FEEDING CURRENTLY RUNNING GLUCERNA 1.2 AT 50ML/HR AND PT TOLERATED WELL. SISTER AT BEDSIDE. ALL SAFETY MEASURE IN PLACE. BED ALARM ON. BED SIDE RAILS UP X2, PLACE CALL LIGHT WITH IN REACH. WILL CONTINUE TO MONITOR
[2021-09-17 20:00] VITALS: BP 141/58
[2021-09-17] MEDS: ACETAMINOPHEN 325 MG TABLET PO PRN (20:59)
--- NOTE | 2021-09-17 21:00 | NUR ---
RN NOTES: PT HAS INCREASED TEMP 99.8. TYLENOL 325MG 2 TABS GIVEN AND PT TOLERATED WELL. WILL CONTINUE TO MONITOR
[2021-09-17] MEDS: INSULIN GLARGINE, 100 UNIT/ML CARTRIDGE SQ SCH (23:02)
--- NOTE | 2021-09-17 23:11 | NUR ---
RN NOTES: PT'S BLOOD SUGAR 212, LANTUS 5 UNITS AND 4 UNITS OF REGULAR INSULIN GIVEN. NO S/S OF HYPER/HYPOGLYCEMIA. WILL CONTINUE TO MONITOR
[2021-09-18] VITALS: BP 133/69
[2021-09-18] MEDS: GLUCERNA 1.2 1,000 ML BOTTLE NG SCH (00:10)
[2021-09-18] MEDS: PIPERACILLIN /TAZOBACTAM 3.375 G in IV D5W 100 ML IV SCH (03:41)
[2021-09-18 04:00] VITALS: BP 129/74
[2021-09-18] MEDS: BLOOD SUGAR DIAGNOSTIC 1 EACH STRIP IN SCH ×3 (05:42→18:40)
[2021-09-18] MEDS: INSULIN REGULAR, HUMAN 100 UNIT/ML 3 ML VIAL SQ PRN ×2 (05:45→12:31)
--- NOTE | 2021-09-18 06:45 | NUR ---
RN CLOSING NOTES PT IN BED, AWAKE, ALERT/ORIENTED X1, RESPONSIVE TO PAINFUL STIMULI. ON O2 @3L/MIN VIA N/C, 100% AND PT TOLERATED WELL. IV ACCESS ON CHEN PICC #18G INTACT AND PATENT. NO BLEEDING NOTED. NO FACIAL GRIMACING NOTED. NO ACUTE DISTRESS. G TUBE FEEDING CURRENTLY RUNNING GLUCERNA 1.2 AT 50ML/HR AND PT TOLERATED WELL. ALL DUE MEDS GIVEN ORDERED. ALL SAFETY MEASURE IN PLACE. BED ALARM ON. BED SIDE RAILS UP X2, PLACE CALL LIGHT WITH IN REACH. WILL ENDORSE TO MORNING SHIFT NURSE.
--- NOTE | 2021-09-18 07:23 | NUR ---
SALES SOLUTIONS ASSOCIATE NOTE RECEIVED PATIENT ON BED WITH SPONTANEOUS EYE OPENING. PATIENT IS NON-VERBAL BUT SOMETIMES MAKES SOUNDS. WITH CONTRACTURES ON ALL EXTREMITIES. PATIENT ON OXYGEN AT 3LPM VIA NASAL CANULA WITH NO SIGNS AND SYMPTOMS OF DISTRESS. ON G-TUBE FEEDING WITH GLUCERNA 1.2 AT 50 ML/HR, TOLERATED WELL. WITH LEFT ARM PICC LINE, PATENT AND INTACT. ON MODERATE TO HIGH BACK REST. SAFETY MEASURES ENSURED WITH BED ON LOWEST LOCKED POSITION, SIDERAILS RAISED AND CALL LIGHT WITHIN REACH AT ALL TIMES. WILL CONTINUE TO MONITOR PATIENT.
[2021-09-18 08:00] VITALS: BP 138/69
[2021-09-18 08:48] LABS: BASOPHILS # (AUTO) 0.1 K/uL (0.0-0.2); BASOPHILS % (AUTO) 0.7 % (0.0-2.0); EOSINOPHILS % (AUTO) 0.5 % (0.0-6.0); HEMATOCRIT 30 % (33-45); HEMOGLOBIN 9.7 g/dL (11.5-14.8); LYMPHOCYTES # (AUTO) 4.2 K/uL (0.8-4.8); LYMPHOCYTES % (AUTO) 23.9 % (20.0-44.0); MEAN CORPUSCULAR HGB CONC 32 g/dl (31.0-36.0); MEAN CORPUSCULAR VOLUME 103 fL (82-100); MONOCYTES # (AUTO) 1.8 K/uL (0.1-1.30); NEUTROPHILS # (AUTO) 11.3 K/uL (1.8-8.9); NEUTROPHILS % (AUTO) 64.9 % (43.0-81.0); PLATELET COUNT (AUTO) 469 K/uL (150-450); RED BLOOD CELL COUNT(AUTO) 2.89 MIL/uL (4.0-5.2); WHITE BLOOD COUNT (AUTO) 17.5 K/uL (4.3-11.0)
[2021-09-18 09:05] LABS: CALCIUM, SERUM 8.2 mg/dL (8.5-10.1); CREATININE 0.5 mg/dL (0.6-1.3); MAGNESIUM 2.1 mg/dL (1.8-2.4); PHOSPHORUS 3.5 mg/dL (2.5-4.9); POTASSIUM 4.1 mmol/L (3.5-5.1)
[2021-09-18] MEDS: PANTOPRAZOLE 40 MG/PACK PACK GT SCH (09:29)
[2021-09-18] MEDS: CHOLECALCIFEROL 1,000 UNIT TABLET (VIT D3) GT SCH (09:29)
[2021-09-18] MEDS: ZINC SULFATE 220 MG CAPSULE GT SCH (09:29)
[2021-09-18] MEDS: MULTIVITAMINS,THERAGRAN 1 UDTAB TABLET GT SCH (09:29)
[2021-09-18] MEDS: ATENOLOL 50 MG TABLET GT SCH (09:29)
[2021-09-18] MEDS: PROSOURCE / PROSTAT (PYXIS) 30 ML UDC GT SCH ×2 (09:37→17:31)
[2021-09-18] MEDS: Z GUARD REMEDY 4 OZ OINT TP SCH (09:49)
[2021-09-18] MEDS: ENOXAPARIN SODIUM 40 MG/0.4 ML DISP.SYRIN SQ SCH (10:17)
[2021-09-18 12:00] VITALS: BP 136/81
[2021-09-18 16:00] VITALS: BP 122/79
--- NOTE | 2021-09-18 17:20 | NUR ---
BANK MANAGER NOTE PATIENT ON BED WITH SPONTANEOUS EYE OPENING. PATIENT IS NON-VERBAL BUT SOMETIMES MAKES SOUNDS. WITH CONTRACTURES ON ALL EXTREMITIES. PATIENT ON OXYGEN AT 3LPM VIA NASAL CANULA WITH NO SIGNS AND SYMPTOMS OF DISTRESS. ON G-TUBE FEEDING WITH GLUCERNA 1.2 AT 50 ML/HR, TOLERATED WELL. WITH LEFT ARM PICC LINE, PATENT AND INTACT. ON MODERATE TO HIGH BACK REST. PATIENT STILL FOR DISCHARGE BUT FACILITY MAINTENANCE CHIEF AND NURSE DOES NOT WANT TO ACCEPT PATIENT. MAINTENANCE CHIEF AWARE. AMBULANCE CANCELLED. WILL ENDORSE ACCORDINGLY. SAFETY MEASURES ENSURED WITH BED ON LOWEST LOCKED POSITION, SIDERAILS RAISED AND CALL LIGHT WITHIN REACH AT ALL TIMES. WILL ENDORSE PATIETN FOR CONTINUITY OF CARE.
[2021-09-18] MEDS: VALPROIC ACID 250 MG/5 ML UDC GT SCH (17:31)
--- NOTE | 2021-09-18 18:50 | NUR ---
RN NOTE SPOKE WITH [facility], SHE SAID HER NAME IS JING, THAT THEY ARE WAITING FOR THEIR MD TO GIVE APPROVAL TO ACCEPT THE PATIENT. WE HAD SEVERAL CORRESPONDENCE IN THE LAST 1 1/2 HOURS AND EVENTUALLY HAD THE CONFERENCE CALL WITH THE FACILITY NURSE AND MOLECULAR PATHOLOGIST GIDEON AND THEY HAVE COME TO A CONCLUSION THAT THEY ARE NOT COMFORTABLE TAKING THE PATIENT AT THIS TIME BECAUSE THEIR DOCTOR HASN'T CALLED THEM BACK YET AND THAT BECAUSE PATIENT WAS ADMITTED TO [facility] AND WAS SENT BACK TO HOSPITAL A DAY AFTER FOR THE SAME REASON. MOLECULAR PATHOLOGIST PANKAJ NOTIFIED OF THE FACILITY DECISION. WILL ENDORSE ACCORDINGLY. WILL CONTINUE TO MONITOR PATIENT.
--- NOTE | 2021-09-18 19:47 | NUR ---
TRAINS SERVICE CONDUCTOR OPENING RECEIVED PATIENT IN BED, NON-VERBAL, RESPONSE TO PAINFUL STIMULI. NOT EXHIBITING S/S OF DISTRESS ON ROOM AIR. NOT EXHIBITING PAIN VIA FLACC. PATIENT IS CONTRACTED. NOTED TO HAVE BILATERAL ARM BRUISES.-- ONE ON L.UA PICC LINE-- TKO 10CC/HR RUNNING AT THIS TIME. R. FOOT PITTING 2+ EDEMA. L. LEG NON-PITTING. L. HAND MITTEN NOTED IN PLACE. TELE MONITOR READING SR 100 BPM. G-TUBE NOPTED TO BE RUNNING GLUCERNA @50CC/HR. NEEDS ATTENDED AT THIS TIME. SAFETY IN PLACE. WILL CONTINUE WITH PATIENT'S PLAN OF CARE.
[2021-09-18 20:00] VITALS: BP 122/79
[2021-09-18] MEDS: INSULIN GLARGINE, 100 UNIT/ML CARTRIDGE SQ SCH (22:06)
[2021-09-19] VITALS: BP 127/81
[2021-09-19] MEDS: BLOOD SUGAR DIAGNOSTIC 1 EACH STRIP IN SCH ×3 (00:06→11:34)
[2021-09-19] MEDS: INSULIN REGULAR, HUMAN 100 UNIT/ML 3 ML VIAL SQ PRN ×3 (00:09→11:34)
[2021-09-19 04:00] VITALS: BP 119/68
[2021-09-19 06:38] LABS: BASOPHILS # (AUTO) 0.1 K/uL (0.0-0.2); BASOPHILS % (AUTO) 0.5 % (0.0-2.0); EOSINOPHILS % (AUTO) 0.6 % (0.0-6.0); HEMATOCRIT 30 % (33-45); HEMOGLOBIN 9.7 g/dL (11.5-14.8); LYMPHOCYTES # (AUTO) 5.1 K/uL (0.8-4.8); LYMPHOCYTES % (AUTO) 36.9 % (20.0-44.0); MEAN CORPUSCULAR HGB CONC 33 g/dl (31.0-36.0); MEAN CORPUSCULAR VOLUME 104 fL (82-100); MONOCYTES # (AUTO) 1.6 K/uL (0.1-1.30); MONOCYTES % (AUTO) 11.5 % (2.0-12.0); NEUTROPHILS % (AUTO) 50.5 % (43.0-81.0); PLATELET COUNT (AUTO) 483 K/uL (150-450); RED BLOOD CELL COUNT(AUTO) 2.87 MIL/uL (4.0-5.2); WHITE BLOOD COUNT (AUTO) 13.8 K/uL (4.3-11.0)
--- NOTE | 2021-09-19 06:48 | NUR ---
PRODUCTION SUPERINTENDENT CLOSING NOTE PATIENT IN BED WITH EYES CLOSED, EASY TO AROUSE-- CHANGED ROOM. NON-VERBAL, RESPONSIVE TO PAIN. NOT EXHIBITING ANY S/S OF DISTRESS ON ROOM AIR THROUGHOUT SHIFT. SATURATION 98-100%. NOT EXHIBITING PAIN VIA FLACC. REPOSITIONING DONE THROUGHOUT SHIFT WITH INVENTORY TAKER. NOTED TO HAVE BILATERAL ARMS BRUISES.BLE EDEMA. L. HAND MITTEN RESTRAINTS RENEWED. TELE MONITOR READING ST 107. ALL NEEDS ATTENDED. ALL SCHEDULED MEDICATIONS ADMINISTERED. SAFETY KEPT IN PLACE THE WHOLE SHIFT. WILL ENDORSE TO MORNING SHIFT RN FOR CONTINUITY OF CARE.
--- NOTE | 2021-09-19 07:30 | NUR ---
RN OPENING NOTES RECEIVED PATIENT IN BED, NON-VERBAL, NOT IN DISTRESS, NO FACIAL GRIMACING NOTED. LEFT PICC LINE PATENT AND INTACT. GT INTACT WITH TF GLUCERNA @ 50CC/HR. WITH LEFT MITTEN RESTRAINT IN PLACE. BED TO LOWEST POSITION AND LOCKED.
[2021-09-19 08:00] VITALS: BP 115/68
[2021-09-19] MEDS: PANTOPRAZOLE 40 MG/PACK PACK GT SCH (08:46)
[2021-09-19] MEDS: CHOLECALCIFEROL 1,000 UNIT TABLET (VIT D3) GT SCH (08:46)
[2021-09-19] MEDS: ZINC SULFATE 220 MG CAPSULE GT SCH (08:46)
[2021-09-19] MEDS: MULTIVITAMINS,THERAGRAN 1 UDTAB TABLET GT SCH (08:46)
[2021-09-19] MEDS: ATENOLOL 50 MG TABLET GT SCH (08:47)
[2021-09-19] MEDS: Z GUARD REMEDY 4 OZ OINT TP SCH (08:48)
[2021-09-19] MEDS: ENOXAPARIN SODIUM 40 MG/0.4 ML DISP.SYRIN SQ SCH (08:48)
[2021-09-19] MEDS: PROSOURCE / PROSTAT (PYXIS) 30 ML UDC GT SCH ×2 (08:49→17:34)
--- NOTE | 2021-09-19 10:30 | NUR ---
WOUND CARE CONSULT: PT PRESENTS WITH RED RASH TO GROIN FOLDS, INNER THIGHS, PERINEUM AND GLUTEAL CREASE/INNER BUTTOCKS WELL DISCOLORATION TO BILATERAL ARMS. LOWER EXTREMITIES ARE CONTRACTED. PT IS INCONTINENT. PT IS IMMOBILE. RECOMMENDATIONS MADE FOR SKIN PROTECTION. DISCUSSED WITH NURSING STAFF. FIRST STEP LOW AIRLOSS MATTRESS ORDERED. MD IN AGREEMENT WITH PLAN OF CARE. Addendum: 09/19/21 at 1032 by CHAYO YOUSIF WNDNU Amended: Links added.
[2021-09-19] MEDS: NYSTATIN CREAM 15 GM TUBE TP SCH ×2 (11:33→17:34)
[2021-09-19] MEDS: CLOTRIMAZOLE/BETAMETASONE DIPROPIONATE 15 GM TUBE TP SCH ×2 (11:33→17:34)
[2021-09-19 12:00] VITALS: BP 102/74
[2021-09-19 16:00] VITALS: BP 122/88
--- NOTE | 2021-09-19 16:45 | NUR ---
RN NOTES CALLED [facility] AND SPOKE WITH JAYDON, ENDORSED PATIENT TO BE TRANSFERRED ETA 1700 AMBULANCE CREW TRUCK DRIVER.
--- NOTE | 2021-09-19 17:36 | NUR ---
RN NOTES PATIENT WAS DISCHARGED VIA GURNEY IN STABLE CONDITION WITH SISTER GRAEME. PICC LINE WAS PULLED OUT ASEPTICALLY.
[2021-09-19 17:46] LABS: LYMPHOCYTES % (MANUAL) 45 % (16-48); NEUTROPHILS % (MANUAL) 42 (42-76)
[2021-09-19 17:47] LABS: EOSINOPHILS % (MANUAL) 1 % (0-4); MONOCYTES % (MANUAL) 12 % (0-11.0)
== END 2021-09-19 17:44 | DRG 137 ==
LOC: ER 08:53 → TRANSITION 12:46 → TELE-TD 13:18 → TELE1 09-13 16:21
PROC: 02HV33Z Insertion of Infusion Device into Superior Vena Cava, Percutaneous Approach (ICD-10-PCS; principal; 2021-09-10)
PROC: B548ZZA Ultrasonography of Superior Vena Cava, Guidance (ICD-10-PCS; 2021-09-10)
DX: J15.6 Pneumonia due to other Gram-negative bacteria (principal); J96.01 Acute respiratory failure with hypoxia; G93.49 Other encephalopathy; E43 Unspecified severe protein-calorie malnutrition; D69.6 Thrombocytopenia, unspecified; E87.0 Hyperosmolality and hypernatremia; G80.9 Cerebral palsy, unspecified; E88.09 Other disorders of plasma-protein metabolism, not elsewhere classified; G40.909 Epilepsy, unspecified, not intractable, without status epilepticus; E87.6 Hypokalemia; D53.9 Nutritional anemia, unspecified; J98.11 Atelectasis; L30.4 Erythema intertrigo; M41.9 Scoliosis, unspecified; R13.10 Dysphagia, unspecified; Z20.822 Contact with and (suspected) exposure to COVID-19; Z79.4 Long term (current) use of insulin; Z93.1 Gastrostomy status; Z68.20 Body mass index [BMI] 20.0-20.9, adult; R78.89 Finding of other specified substances, not normally found in blood; E87.70 Fluid overload, unspecified; E11.65 Type 2 diabetes mellitus with hyperglycemia; Z79.84 Long term (current) use of oral hypoglycemic drugs
CPT/HCPCS: 36415; 38221; 71045-TC; 80048-TC; 80061-TC; 80076-TC; 80202-TC; 82945-TC; 82962-TC; 83605-TC; 83735-TC; 83880; 84100-TC; 84443-TC; 84484-TC; 85025-TC; 85378-TC; 86803; 87040-TC; 87081-TC; 87806; 93307-TC; 94799-TC; A6403; C1751; C9113; G0378; J1100; J1650; J1815; J2543; J3370; J3480; J7050; J7060; J7070; U0003

== ENCOUNTER 2021-11-04 06:41 | Inpatient (IN) | payer MEDICAID ==
[~2021-11-04] VITALS: Ht 160 cm; Wt 54.9 kg
[2021-11-04] VITALS (42 sets, daily range): BP systolic 60–151; BP diastolic 25–110
[~2021-11-04 06:41] MED LIST: ACET650S26 GT; ALEN70TA80 GT; ALLA266C2 TP; AMIN30LI2 GT; ATEN50TA GT; AZIT250T PO; BISA10SU11 RC; CALA177L16 TP; CALC1TAB30 GT; CHLO473M5 MM; CHOL100043 GT; DIPH1TAB GT; ESOM20CA GT; FENO200C GT; GUAI100S11 GT; INSU100V27 SQ; LA/L175C GT; LISI1SOL GT; MAGN400O6 GT; MAGN400T26 GT; METF-440 GT; MINE105O TP; MULT-16 GT; NUT.237L28 GT; SENN8.8S19 GT; SIME-3 GT; VALP250S4 GT; VITS5OIN2 TP; ZINC50TA69 GT
[2021-11-04] MEDS ORDERED: IV NS 0.9% 1,000 ML BAG IV ONE ×2 (07:30→09:00)
[2021-11-04] MEDS ORDERED: PIPERACILLIN /TAZOBACTAM 3.375 G in IV D5W 50 ML IV ONE (07:30)
[2021-11-04 07:32] LABS: BASOPHILS # (AUTO) 0.1 K/uL (0.0-0.2); BASOPHILS % (AUTO) 1.1 % (0.0-2.0); EOSINOPHILS % (AUTO) 0.4 % (0.0-6.0); HEMATOCRIT 41 % (33-45); HEMOGLOBIN 12.2 g/dL (11.5-14.8); LYMPHOCYTES # (AUTO) 3.6 K/uL (0.8-4.8); LYMPHOCYTES % (AUTO) 35.8 % (20.0-44.0); MEAN CORPUSCULAR HGB CONC 30 g/dl (31.0-36.0); MEAN CORPUSCULAR VOLUME 108 fL (82-100); MONOCYTES # (AUTO) 1.4 K/uL (0.1-1.30); MONOCYTES % (AUTO) 14.3 % (2.0-12.0); NEUTROPHILS # (AUTO) 4.8 K/uL (1.8-8.9); NEUTROPHILS % (AUTO) 48.4 % (43.0-81.0); PLATELET COUNT (AUTO) 174 K/uL (150-450); RED BLOOD CELL COUNT(AUTO) 3.76 MIL/uL (4.0-5.2); WHITE BLOOD COUNT (AUTO) 9.9 K/uL (4.3-11.0)
[2021-11-04 07:37] LABS: ABG BASE EXCESS 4.2 mmol/L; ABG PCO2 47.7 mmHg (35.0-45.0); ABG PH 7.411 (7.350-7.450); ABG PO2 76.2 mmHg (75.0-100.0); COHb 0.3 % (0.5-1.5); MetHb 0.5 % (0.0-1.5); O2Hb 94.1 % (94.0-97.0); SITE, ABG Left Brachial; VENT MODE, BG 4 LPM O2
[2021-11-04 07:40] LABS: CALCIUM, SERUM 9.8 mg/dL (8.5-10.1); CARBON DIOXIDE 28 mmol/L (21-32); CHLORIDE 108 mmol/L (98-107); CREATININE 1.2 mg/dL (0.6-1.3); POTASSIUM 5.9 mmol/L (3.5-5.1); SODIUM SERUM 143 mmol/L (136-145)
[2021-11-04 07:51] LABS: GLUCOSE 477 mg/dL (74-106); UREA NITROGEN, BLOOD 84 mg/dL (7-18)
[2021-11-04 07:53] LABS: ALANINE AMINOTRANSFERASE < 6 U/L (12-78); ALKALINE PHOSPHATASE 258 U/L (46-116); ASPARTATE AMINOTRANSFERASE 10 U/L (15-37); BILIRUBIN,DIRECT 0.1 mg/dL (0.0-0.2); BILIRUBIN,TOTAL 0.5 mg/dL (0.2-1.0); TOTAL PROTEIN, SERUM 6.4 g/dL (6.4-8.2)
[2021-11-04] MEDS ORDERED: NOREPINEPHRINE 8 MG in IV NS 0.9% 250 ML IV ONE (08:00)
[2021-11-04] MEDS ORDERED: VANCOMYCIN 1 GM in IV D5W 250 ML IV ONE (09:00)
[2021-11-04] MEDS ORDERED: INSULIN REGULAR, HUMAN 100 UNIT/ML 10 ML VIAL SQ ONE (09:30)
[2021-11-04] MEDS ORDERED: INSULIN REGULAR, HUMAN 100 UNIT/ML 10 ML VIAL ONE (09:36)
[2021-11-04] MEDS ORDERED: *INSULIN REGULAR(HUMULIN R)HUM 100 UNIT/ML VIAL SQ PRN (10:00)
[2021-11-04] MEDS ORDERED: MAG HYDROX/AL HYDROX/SIMETH 30 ML UDC PO PRN (10:00)
[2021-11-04] MEDS ORDERED: ZOLPIDEM TARTRATE 5 MG TABLET PO PRN (10:00)
[2021-11-04] MEDS ORDERED: Z GUARD REMEDY 4 OZ OINT TP PRN (10:00)
[2021-11-04] MEDS ORDERED: MAGNESIUM HYDROXIDE 30 ML UDC PO PRN (10:00)
[2021-11-04] MEDS ORDERED: INSULIN REGULAR, HUMAN 100 UNIT/ML 3 ML VIAL SQ PRN (10:00)
[2021-11-04] MEDS ORDERED: DEXTROSE 50%-WATER 50 ML DISP.SYRIN IV PRN ×2 (10:00→11:30)
[2021-11-04] MEDS ORDERED: ONDANSETRON HCL/PF 4 MG/2 ML VIAL IVP PRN (10:00)
[2021-11-04] MEDS ORDERED: ACETAMINOPHEN 325 MG TABLET PO PRN (10:00)
[2021-11-04] MEDS ORDERED: NOREPINEPHRINE 8 MG in IV NS 0.9% 242 ML IV PRN ×2 (10:30→16:30)
[2021-11-04] MEDS: IV NS 0.9% 1,000 ML IV PRN ×2 (10:49→18:17)
[2021-11-04] MEDS: ENOXAPARIN SODIUM 40 MG/0.4 ML DISP.SYRIN SQ SCH (11:24)
[2021-11-04] MEDS ORDERED: PHARMACY TO CHANGE PO MEDS TO GT/NG XX PRN (11:30)
[2021-11-04] MEDS ORDERED: MAGNESIUM HYDROXIDE 30 ML UDC NG PRN (11:34)
[2021-11-04] MEDS ORDERED: MAG HYDROX/AL HYDROX/SIMETH 30 ML UDC NG PRN (11:34)
[2021-11-04 11:40] LABS: BILIRUBIN,URINE NEGATIVE (NEGATIVE); COLOR,URINE YELLOW (YELLOW); LEUKOCYTE ESTERASE ,URINE NEGATIVE (NEGATIVE); NITRITE, URINE NEGATIVE (NEGATIVE); PH,URINE 5.5 (5.0-8.0); PROTEIN,URINE TRACE mg/dl (NEGATIVE); UGLUCOSE >=1000 mg/dL (NEGATIVE); UROBILINOGEN,URINE 0.2 EU/dL (0.2)
[2021-11-04] MEDS: CLOTRIMAZOLE 1% 15 GM TUBE TP SCH ×2 (11:53→17:00)
[2021-11-04] MEDS ORDERED: ACETAMINOPHEN 650 MG/20.3 ML UDC PO PRN (12:00)
[2021-11-04] MEDS ORDERED: BLOOD SUGAR DIAGNOSTIC 1 EACH STRIP VI SCH (12:00)
[2021-11-04 12:09] LABS: BACTERIA,URINE Few /HPF (None Seen); SQUAMOUS EPITHELIAL CELL,UR Few /HPF (None Seen); WBC,URINE 0-2 /HPF (0-3)
[2021-11-04] MEDS: BLOOD SUGAR DIAGNOSTIC 1 EACH STRIP IN SCH ×3 (13:00→23:48)
[2021-11-04] MEDS: INSULIN REGULAR, HUMAN 100 UNIT/ML 3 ML VIAL SQ PRN ×2 (13:01→23:50)
[2021-11-04] MEDS: ACETAMINOPHEN 650 MG/20.3 ML UDC NG PRN (14:49)
[2021-11-04] MEDS: PIPERACILLIN /TAZOBACTAM 3.375 G in IV D5W 100 ML IV SCH ×2 (16:02→23:52)
[2021-11-04] MEDS: IV NS 0.9% 250 ML IV PRN (16:44)
[2021-11-04] MEDS: NOREPINEPHRINE 8 MG in IV NS 0.9% 242 ML IV PRN (16:50)
[2021-11-04] MEDS ORDERED: DIPHENOXYLATE HCL/ATROP SULF 1 UDTAB TABLET GT PRN (17:30)
[2021-11-04] MEDS: FENOFIBRATE NANOCRYS (145 MG) 145 MG TABLET GT SCH (18:58)
[2021-11-04] MEDS: VALPROIC ACID 250 MG/5 ML UDC GT SCH (18:58)
[2021-11-04] MEDS: VANCOMYCIN 1 GM in IV D5W 250 ML IV SCH (21:36)
[2021-11-04] MEDS: HYDROCODONE/APAP 5/325MG TABLET GT PRN (23:59)
[2021-11-05] VITALS (76 sets, daily range): BP systolic 72–144; BP diastolic 20–97
[2021-11-05] MEDS: IV NS 0.9% 1,000 ML IV PRN ×3 (03:30→18:57)
[2021-11-05 05:13] LABS: BASOPHILS # (AUTO) 0.1 K/uL (0.0-0.2); EOSINOPHILS % (AUTO) 0.9 % (0.0-6.0); HEMATOCRIT 36 % (33-45); HEMOGLOBIN 10.9 g/dL (11.5-14.8); LYMPHOCYTES % (AUTO) 40.6 % (20.0-44.0); MEAN CORPUSCULAR HGB CONC 31 g/dl (31.0-36.0); MEAN CORPUSCULAR VOLUME 106 fL (82-100); MONOCYTES # (AUTO) 1.3 K/uL (0.1-1.30); MONOCYTES % (AUTO) 10.9 % (2.0-12.0); NEUTROPHILS # (AUTO) 5.7 K/uL (1.8-8.9); NEUTROPHILS % (AUTO) 46.6 % (43.0-81.0); PLATELET COUNT (AUTO) 154 K/uL (150-450); RED BLOOD CELL COUNT(AUTO) 3.36 MIL/uL (4.0-5.2); WHITE BLOOD COUNT (AUTO) 12.3 K/uL (4.3-11.0)
[2021-11-05 05:16] LABS: CALCIUM, SERUM 7.7 mg/dL (8.5-10.1); CREATININE 0.5 mg/dL (0.6-1.3); MAGNESIUM 2.2 mg/dL (1.8-2.4); PHOSPHORUS 2.9 mg/dL (2.5-4.9); POTASSIUM 3.5 mmol/L (3.5-5.1)
[2021-11-05 05:28] LABS: THYROID STIMULATING HORMONE 2.077 uIU/mL (0.358-3.74)
[2021-11-05] MEDS: NOREPINEPHRINE 8 MG in IV NS 0.9% 242 ML IV PRN (05:41)
[2021-11-05] MEDS: BLOOD SUGAR DIAGNOSTIC 1 EACH STRIP IN SCH ×3 (06:23→18:25)
[2021-11-05] MEDS: INSULIN REGULAR, HUMAN 100 UNIT/ML 3 ML VIAL SQ PRN ×3 (06:25→18:30)
[2021-11-05] MEDS: PIPERACILLIN /TAZOBACTAM 3.375 G in IV D5W 100 ML IV SCH ×3 (09:02→23:46)
[2021-11-05] MEDS: HYDROCODONE/APAP 5/325MG TABLET GT PRN ×2 (09:22→18:06)
[2021-11-05] MEDS: PROSTAT (PYXIS) 30 ML UDC GT SCH ×2 (09:45→18:04)
[2021-11-05] MEDS: LISINOPRIL (5MG) 5 MG TABLET GT SCH (09:48)
[2021-11-05] MEDS: LACTOBACILLUS RHAMNOSUS GG 1 EACH CAP.SPRINK GT SCH (09:50)
[2021-11-05] MEDS: CALCIUM CARB 250MG /VITAMIN D 1 UDTAB GT SCH ×2 (09:50→18:03)
[2021-11-05] MEDS: MULTIVITAMINS,THERAGRAN 1 UDTAB TABLET GT SCH (09:51)
[2021-11-05] MEDS: CHOLECALCIFEROL 1,000 UNIT TABLET (VIT D3) GT SCH (09:53)
[2021-11-05] MEDS: PANTOPRAZOLE 40 MG/PACK PACK NG SCH (09:54)
[2021-11-05] MEDS: MAGNESIUM OXIDE 400 MG TABLET GT SCH ×2 (09:54→18:03)
[2021-11-05] MEDS: ZINC SULFATE 220 MG CAPSULE GT SCH (09:54)
[2021-11-05] MEDS: SIMETHICONE SUSP 40 MG/0.6 ML BOTTLE GT SCH ×3 (09:57→18:08)
[2021-11-05] MEDS: VANCOMYCIN 1 GM in IV D5W 250 ML IV SCH ×2 (09:57→21:00)
[2021-11-05] MEDS: CLOTRIMAZOLE 1% 15 GM TUBE TP SCH ×2 (09:58→18:18)
[2021-11-05] MEDS: ENOXAPARIN SODIUM 40 MG/0.4 ML DISP.SYRIN SQ SCH (10:48)
[2021-11-05] MEDS: GLUCERNA 1.2 1,000 ML BOTTLE NG PRN (12:41)
[2021-11-05 13:21] LABS: BAND % (MANUAL) 18 % (0.0-5.0); LYMPHOCYTES % (MANUAL) 37 % (16-48); MONOCYTES % (MANUAL) 11 % (0-11.0); NEUTROPHILS % (MANUAL) 34 (42-76)
[2021-11-05] MEDS: IV NS 0.9% 250 ML IV PRN (16:17)
[2021-11-05] MEDS: VALPROIC ACID 250 MG/5 ML UDC GT SCH (18:05)
[2021-11-05] MEDS: FENOFIBRATE NANOCRYS (145 MG) 145 MG TABLET GT SCH (18:05)
[2021-11-06] VITALS (97 sets, daily range): BP systolic 64–165; BP diastolic 19–119
[2021-11-06] MEDS: INSULIN REGULAR, HUMAN 100 UNIT/ML 3 ML VIAL SQ PRN ×5 (00:18→23:11)
[2021-11-06] MEDS: BLOOD SUGAR DIAGNOSTIC 1 EACH STRIP IN SCH ×5 (00:24→23:06)
[2021-11-06 04:18] LABS: BASOPHILS % (AUTO) 0.3 % (0.0-2.0); EOSINOPHILS % (AUTO) 1.8 % (0.0-6.0); HEMATOCRIT 33 % (33-45); LYMPHOCYTES # (AUTO) 2.2 K/uL (0.8-4.8); LYMPHOCYTES % (AUTO) 26.5 % (20.0-44.0); MEAN CORPUSCULAR HGB CONC 31 g/dl (31.0-36.0); MEAN CORPUSCULAR VOLUME 107 fL (82-100); MONOCYTES # (AUTO) 0.9 K/uL (0.1-1.30); MONOCYTES % (AUTO) 11.2 % (2.0-12.0); NEUTROPHILS % (AUTO) 60.2 % (43.0-81.0); PLATELET COUNT (AUTO) 134 K/uL (150-450); RED BLOOD CELL COUNT(AUTO) 3.05 MIL/uL (4.0-5.2); WHITE BLOOD COUNT (AUTO) 8.3 K/uL (4.3-11.0)
[2021-11-06] MEDS: IV NS 0.9% 1,000 ML IV PRN (04:22)
[2021-11-06 04:28] LABS: CALCIUM, SERUM 8.4 mg/dL (8.5-10.1); CREATININE 0.4 mg/dL (0.6-1.3); MAGNESIUM 2.1 mg/dL (1.8-2.4); POTASSIUM 3.5 mmol/L (3.5-5.1)
[2021-11-06 05:28] LABS: BAND % (MANUAL) 41 % (0.0-5.0); EOSINOPHILS % (MANUAL) 1 % (0-4); LYMPHOCYTES % (MANUAL) 22 % (16-48); MONOCYTES % (MANUAL) 7 % (0-11.0); NEUTROPHILS % (MANUAL) 29 (42-76)
[2021-11-06] MEDS: PIPERACILLIN /TAZOBACTAM 3.375 G in IV D5W 100 ML IV SCH ×3 (08:56→23:06)
[2021-11-06] MEDS: CHOLECALCIFEROL 1,000 UNIT TABLET (VIT D3) GT SCH (08:58)
[2021-11-06] MEDS: ACETAMINOPHEN 650 MG/20.3 ML UDC NG PRN ×2 (08:58→18:45)
[2021-11-06] MEDS: SIMETHICONE SUSP 40 MG/0.6 ML BOTTLE GT SCH ×3 (08:58→17:44)
[2021-11-06] MEDS: LACTOBACILLUS RHAMNOSUS GG 1 EACH CAP.SPRINK GT SCH (08:59)
[2021-11-06] MEDS: CALCIUM CARB 250MG /VITAMIN D 1 UDTAB GT SCH ×2 (08:59→17:45)
[2021-11-06] MEDS: ZINC SULFATE 220 MG CAPSULE GT SCH (08:59)
[2021-11-06] MEDS: LISINOPRIL (5MG) 5 MG TABLET GT SCH (09:00)
[2021-11-06] MEDS: MULTIVITAMINS,THERAGRAN 1 UDTAB TABLET GT SCH (09:00)
[2021-11-06] MEDS: CLOTRIMAZOLE 1% 15 GM TUBE TP SCH ×4 (09:00→17:59)
[2021-11-06] MEDS: MAGNESIUM OXIDE 400 MG TABLET GT SCH ×2 (09:00→17:44)
[2021-11-06] MEDS: PANTOPRAZOLE 40 MG/PACK PACK NG SCH (09:01)
[2021-11-06] MEDS: PROSTAT (PYXIS) 30 ML UDC GT SCH ×2 (09:08→17:45)
[2021-11-06] MEDS: VANCOMYCIN 1 GM in IV D5W 250 ML IV SCH (09:08)
[2021-11-06] MEDS: ENOXAPARIN SODIUM 40 MG/0.4 ML DISP.SYRIN SQ SCH (09:18)
[2021-11-06] MEDS: IV D5/0.45 NACL 1,000 ML IV PRN ×2 (09:44→20:26)
[2021-11-06] MEDS: NOREPINEPHRINE 8 MG in IV NS 0.9% 242 ML IV PRN (11:58)
[2021-11-06] MEDS ORDERED: NEUTRA PHOS 1 POWD.PACKET GT ONE (14:00)
[2021-11-06] MEDS: VALPROIC ACID 250 MG/5 ML UDC GT SCH (17:43)
[2021-11-06] MEDS: FENOFIBRATE NANOCRYS (145 MG) 145 MG TABLET GT SCH (17:44)
[2021-11-06] MEDS: VANCOMYCIN 0.75 GM in IV D5W 250 ML IV SCH (21:15)
[2021-11-07] VITALS (37 sets, daily range): BP systolic 88–153; BP diastolic 17–97
[2021-11-07] MEDS ORDERED: DEXTROSE 50%-WATER 50 ML DISP.SYRIN IV PRN (00:30)
[2021-11-07 04:13] LABS: BASOPHILS % (AUTO) 0.7 % (0.0-2.0); EOSINOPHILS % (AUTO) 1.8 % (0.0-6.0); HEMATOCRIT 32 % (33-45); HEMOGLOBIN 10.1 g/dL (11.5-14.8); LYMPHOCYTES # (AUTO) 1.5 K/uL (0.8-4.8); LYMPHOCYTES % (AUTO) 30.5 % (20.0-44.0); MEAN CORPUSCULAR HGB CONC 31 g/dl (31.0-36.0); MEAN CORPUSCULAR VOLUME 107 fL (82-100); MONOCYTES # (AUTO) 0.7 K/uL (0.1-1.30); MONOCYTES % (AUTO) 14.3 % (2.0-12.0); NEUTROPHILS # (AUTO) 2.7 K/uL (1.8-8.9); NEUTROPHILS % (AUTO) 52.7 % (43.0-81.0); PLATELET COUNT (AUTO) 138 K/uL (150-450); RED BLOOD CELL COUNT(AUTO) 3.03 MIL/uL (4.0-5.2); WHITE BLOOD COUNT (AUTO) 5.1 K/uL (4.3-11.0)
[2021-11-07 04:21] LABS: CALCIUM, SERUM 8.8 mg/dL (8.5-10.1); CREATININE 0.4 mg/dL (0.6-1.3); PHOSPHORUS 2.2 mg/dL (2.5-4.9); POTASSIUM 3.3 mmol/L (3.5-5.1)
[2021-11-07] MEDS: GLUCERNA 1.2 1,000 ML BOTTLE NG PRN ×2 (06:12→16:46)
[2021-11-07] MEDS: IV D5/0.45 NACL 1,000 ML IV PRN (06:13)
[2021-11-07] MEDS: BLOOD SUGAR DIAGNOSTIC 1 EACH STRIP IN SCH ×3 (06:14→17:10)
[2021-11-07] MEDS: INSULIN REGULAR, HUMAN 100 UNIT/ML 3 ML VIAL SQ PRN ×3 (06:27→17:10)
[2021-11-07 07:07] LABS: BAND % (MANUAL) 9 % (0.0-5.0); EOSINOPHILS % (MANUAL) 2 % (0-4); LYMPHOCYTES % (MANUAL) 38 % (16-48); MONOCYTES % (MANUAL) 10 % (0-11.0); NEUTROPHILS % (MANUAL) 41 (42-76)
[2021-11-07] MEDS: PIPERACILLIN /TAZOBACTAM 3.375 G in IV D5W 100 ML IV SCH ×3 (08:56→21:45)
[2021-11-07] MEDS: LISINOPRIL (5MG) 5 MG TABLET GT SCH (09:00)
[2021-11-07] MEDS: VANCOMYCIN 0.75 GM in IV D5W 250 ML IV SCH ×2 (09:25→20:13)
[2021-11-07] MEDS: PANTOPRAZOLE 40 MG/PACK PACK NG SCH (09:26)
[2021-11-07] MEDS: SIMETHICONE SUSP 40 MG/0.6 ML BOTTLE GT SCH ×3 (09:26→16:52)
[2021-11-07] MEDS: PROSTAT (PYXIS) 30 ML UDC GT SCH ×2 (09:26→16:51)
[2021-11-07] MEDS: MAGNESIUM OXIDE 400 MG TABLET GT SCH ×2 (09:27→16:44)
[2021-11-07] MEDS: CALCIUM CARB 250MG /VITAMIN D 1 UDTAB GT SCH ×2 (09:27→16:45)
[2021-11-07] MEDS: LACTOBACILLUS RHAMNOSUS GG 1 EACH CAP.SPRINK GT SCH (09:27)
[2021-11-07] MEDS: CHOLECALCIFEROL 1,000 UNIT TABLET (VIT D3) GT SCH (09:27)
[2021-11-07] MEDS: ZINC SULFATE 220 MG CAPSULE GT SCH (09:27)
[2021-11-07] MEDS: MULTIVITAMINS,THERAGRAN 1 UDTAB TABLET GT SCH (09:27)
[2021-11-07] MEDS: VITAMINS A AND D 56.7 GM TUBE TP SCH (09:28)
[2021-11-07] MEDS: CLOTRIMAZOLE 1% 15 GM TUBE TP SCH ×4 (09:28→16:51)
[2021-11-07] MEDS: ENOXAPARIN SODIUM 40 MG/0.4 ML DISP.SYRIN SQ SCH (09:29)
[2021-11-07] MEDS ORDERED: POTASSIUM CHLORIDE 20 MEQ POWDER PACKET GT SCH (10:00)
[2021-11-07] MEDS ORDERED: NEUTRA PHOS 1 POWD.PACKET GT ONE (10:00)
[2021-11-07] MEDS: ACETAMINOPHEN 650 MG/20.3 ML UDC NG PRN ×2 (12:06→17:51)
[2021-11-07] MEDS ORDERED: LEVALBUTEROL HCL NEB 1.25 MG/0.5 ML VIAL.NEB NEB PRN (16:30)
[2021-11-07] MEDS: VALPROIC ACID 250 MG/5 ML UDC GT SCH (17:51)
[2021-11-07] MEDS: FENOFIBRATE NANOCRYS (145 MG) 145 MG TABLET GT SCH (17:51)
[2021-11-08] VITALS: BP 112/73
[2021-11-08] MEDS: BLOOD SUGAR DIAGNOSTIC 1 EACH STRIP IN SCH ×4 (00:54→17:43)
[2021-11-08] MEDS: INSULIN GLARGINE, 100 UNIT/ML CARTRIDGE SQ SCH ×2 (00:59→21:40)
[2021-11-08] MEDS: INSULIN REGULAR, HUMAN 100 UNIT/ML 3 ML VIAL SQ PRN ×4 (01:02→17:45)
[2021-11-08] MEDS: IV D5/0.45 NACL 1,000 ML IV PRN ×2 (02:19→13:21)
[2021-11-08] MEDS: PIPERACILLIN /TAZOBACTAM 3.375 G in IV D5W 100 ML IV SCH ×3 (05:52→22:17)
[2021-11-08 06:16] LABS: BASOPHILS % (AUTO) 0.3 % (0.0-2.0); EOSINOPHILS % (AUTO) 2.7 % (0.0-6.0); HEMATOCRIT 32 % (33-45); HEMOGLOBIN 9.8 g/dL (11.5-14.8); LYMPHOCYTES # (AUTO) 2.6 K/uL (0.8-4.8); LYMPHOCYTES % (AUTO) 47.3 % (20.0-44.0); MEAN CORPUSCULAR HGB CONC 31 g/dl (31.0-36.0); MEAN CORPUSCULAR VOLUME 105 fL (82-100); MONOCYTES # (AUTO) 0.7 K/uL (0.1-1.30); MONOCYTES % (AUTO) 12.9 % (2.0-12.0); NEUTROPHILS % (AUTO) 36.8 % (43.0-81.0); PLATELET COUNT (AUTO) 158 K/uL (150-450); RED BLOOD CELL COUNT(AUTO) 2.99 MIL/uL (4.0-5.2); WHITE BLOOD COUNT (AUTO) 5.4 K/uL (4.3-11.0)
[2021-11-08 06:39] LABS: CALCIUM, SERUM 8.3 mg/dL (8.5-10.1); CREATININE 0.4 mg/dL (0.6-1.3); PHOSPHORUS 2.5 mg/dL (2.5-4.9); POTASSIUM 3.8 mmol/L (3.5-5.1)
[2021-11-08 08:00] VITALS: BP 134/79
[2021-11-08] MEDS: CHOLECALCIFEROL 1,000 UNIT TABLET (VIT D3) GT SCH (08:51)
[2021-11-08] MEDS: MAGNESIUM OXIDE 400 MG TABLET GT SCH ×2 (08:51→17:13)
[2021-11-08] MEDS: LACTOBACILLUS RHAMNOSUS GG 1 EACH CAP.SPRINK GT SCH (08:51)
[2021-11-08] MEDS: ZINC SULFATE 220 MG CAPSULE GT SCH (08:51)
[2021-11-08] MEDS: CALCIUM CARB 250MG /VITAMIN D 1 UDTAB GT SCH ×2 (08:51→17:13)
[2021-11-08] MEDS: MULTIVITAMINS,THERAGRAN 1 UDTAB TABLET GT SCH (08:51)
[2021-11-08] MEDS: PANTOPRAZOLE 40 MG/PACK PACK NG SCH (08:51)
[2021-11-08] MEDS: LISINOPRIL (5MG) 5 MG TABLET GT SCH (08:52)
[2021-11-08] MEDS: CLOTRIMAZOLE 1% 15 GM TUBE TP SCH ×4 (08:56→16:50)
[2021-11-08] MEDS: SIMETHICONE SUSP 40 MG/0.6 ML BOTTLE GT SCH ×3 (08:56→17:13)
[2021-11-08] MEDS ORDERED: ALBUTEROL FS 2.5 MG/3 ML VIAL.NEB NEB PRN (09:00)
[2021-11-08] MEDS: PROSTAT (PYXIS) 30 ML UDC GT SCH ×2 (09:01→17:14)
[2021-11-08] MEDS: VANCOMYCIN 0.75 GM in IV D5W 250 ML IV SCH ×2 (09:02→20:56)
[2021-11-08] MEDS: VITAMINS A AND D 56.7 GM TUBE TP SCH (09:05)
[2021-11-08] MEDS: ENOXAPARIN SODIUM 40 MG/0.4 ML DISP.SYRIN SQ SCH (10:14)
[2021-11-08] MEDS: ACETAMINOPHEN 650 MG/20.3 ML UDC NG PRN (10:52)
[2021-11-08 12:00] VITALS: BP 130/83
[2021-11-08 13:44] LABS: EOSINOPHILS % (MANUAL) 3 % (0-4); LYMPHOCYTES % (MANUAL) 45 % (16-48); MONOCYTES % (MANUAL) 11 % (0-11.0); NEUTROPHILS % (MANUAL) 39 (42-76); REACTIVE LYMPHOCYTES 2 % (0-0)
[2021-11-08] MEDS: HYDROCODONE/APAP 5/325MG TABLET GT PRN (15:14)
[2021-11-08] MEDS: FENOFIBRATE NANOCRYS (145 MG) 145 MG TABLET GT SCH (17:13)
[2021-11-08] MEDS: VALPROIC ACID 250 MG/5 ML UDC GT SCH (17:14)
[2021-11-08 18:00] VITALS: BP 136/77
[2021-11-08] MEDS: GLUCERNA 1.2 1,000 ML BOTTLE NG PRN (18:58)
[2021-11-08 20:00] VITALS: BP 125/53
[2021-11-09] VITALS: BP 133/70
[2021-11-09] MEDS: INSULIN REGULAR, HUMAN 100 UNIT/ML 3 ML VIAL SQ PRN ×5 (01:03→23:31)
[2021-11-09 04:00] VITALS: BP 136/90
[2021-11-09] MEDS: ACETAMINOPHEN 650 MG/20.3 ML UDC NG PRN ×2 (05:27→17:59)
[2021-11-09] MEDS: PIPERACILLIN /TAZOBACTAM 3.375 G in IV D5W 100 ML IV SCH ×3 (05:59→21:51)
[2021-11-09] MEDS: BLOOD SUGAR DIAGNOSTIC 1 EACH STRIP IN SCH ×5 (06:10→23:31)
[2021-11-09 06:39] LABS: BASOPHILS % (AUTO) 0.4 % (0.0-2.0); EOSINOPHILS % (AUTO) 2.7 % (0.0-6.0); HEMATOCRIT 31 % (33-45); HEMOGLOBIN 9.8 g/dL (11.5-14.8); LYMPHOCYTES # (AUTO) 2.9 K/uL (0.8-4.8); LYMPHOCYTES % (AUTO) 38.7 % (20.0-44.0); MEAN CORPUSCULAR HGB CONC 32 g/dl (31.0-36.0); MEAN CORPUSCULAR VOLUME 102 fL (82-100); MONOCYTES % (AUTO) 13.7 % (2.0-12.0); NEUTROPHILS # (AUTO) 3.3 K/uL (1.8-8.9); NEUTROPHILS % (AUTO) 44.5 % (43.0-81.0); PLATELET COUNT (AUTO) 197 K/uL (150-450); RED BLOOD CELL COUNT(AUTO) 2.98 MIL/uL (4.0-5.2); WHITE BLOOD COUNT (AUTO) 7.4 K/uL (4.3-11.0)
[2021-11-09 07:59] LABS: CALCIUM, SERUM 8.8 mg/dL (8.5-10.1); CREATININE 0.4 mg/dL (0.6-1.3); MAGNESIUM 1.9 mg/dL (1.8-2.4); PHOSPHORUS 2.3 mg/dL (2.5-4.9); POTASSIUM 4.1 mmol/L (3.5-5.1)
[2021-11-09 08:00] VITALS: BP 111/87
[2021-11-09] MEDS: LACTOBACILLUS RHAMNOSUS GG 1 EACH CAP.SPRINK GT SCH (08:51)
[2021-11-09] MEDS: CALCIUM CARB 250MG /VITAMIN D 1 UDTAB GT SCH ×2 (08:51→16:38)
[2021-11-09] MEDS: MAGNESIUM OXIDE 400 MG TABLET GT SCH ×2 (08:51→16:38)
[2021-11-09] MEDS: CHOLECALCIFEROL 1,000 UNIT TABLET (VIT D3) GT SCH (08:51)
[2021-11-09] MEDS: ZINC SULFATE 220 MG CAPSULE GT SCH (08:51)
[2021-11-09] MEDS: MULTIVITAMINS,THERAGRAN 1 UDTAB TABLET GT SCH (08:51)
[2021-11-09] MEDS: LISINOPRIL (5MG) 5 MG TABLET GT SCH (08:52)
[2021-11-09] MEDS: PANTOPRAZOLE 40 MG/PACK PACK NG SCH (08:52)
[2021-11-09] MEDS: VITAMINS A AND D 56.7 GM TUBE TP SCH (08:53)
[2021-11-09] MEDS: CLOTRIMAZOLE 1% 15 GM TUBE TP SCH ×4 (08:54→17:00)
[2021-11-09] MEDS: SIMETHICONE SUSP 40 MG/0.6 ML BOTTLE GT SCH ×3 (08:57→16:55)
[2021-11-09] MEDS: PROSTAT (PYXIS) 30 ML UDC GT SCH ×2 (09:00→16:38)
[2021-11-09 09:53] LABS: EOSINOPHILS % (MANUAL) 6 % (0-4); LYMPHOCYTES % (MANUAL) 32 % (16-48); MONOCYTES % (MANUAL) 16 % (0-11.0); NEUTROPHILS % (MANUAL) 46 (42-76)
[2021-11-09] MEDS ORDERED: NEUTRA PHOS 1 POWD.PACKET GT ONE (10:00)
[2021-11-09] MEDS: VANCOMYCIN 0.75 GM in IV D5W 250 ML IV SCH (10:07)
[2021-11-09] MEDS: ENOXAPARIN SODIUM 40 MG/0.4 ML DISP.SYRIN SQ SCH (10:10)
[2021-11-09 12:00] VITALS: BP 101/81
[2021-11-09] MEDS: HYDROCODONE/APAP 5/325MG TABLET GT PRN (13:07)
[2021-11-09 16:00] VITALS: BP 123/79
[2021-11-09] MEDS: GLUCERNA 1.2 1,000 ML BOTTLE NG PRN (16:32)
[2021-11-09] MEDS: IV D5/0.45 NACL 1,000 ML IV PRN (16:36)
[2021-11-09] MEDS: VALPROIC ACID 250 MG/5 ML UDC GT SCH (17:58)
[2021-11-09] MEDS: FENOFIBRATE NANOCRYS (145 MG) 145 MG TABLET GT SCH (17:58)
[2021-11-09 20:00] VITALS: BP 124/77
[2021-11-09] MEDS: INSULIN GLARGINE, 100 UNIT/ML CARTRIDGE SQ SCH (23:30)
[2021-11-10] VITALS: BP 122/84
[2021-11-10] MEDS: ACETAMINOPHEN 650 MG/20.3 ML UDC NG PRN ×3 (00:11→16:04)
[2021-11-10 04:00] VITALS: BP 121/85
[2021-11-10] MEDS: PIPERACILLIN /TAZOBACTAM 3.375 G in IV D5W 100 ML IV SCH (05:38)
[2021-11-10] MEDS: BLOOD SUGAR DIAGNOSTIC 1 EACH STRIP IN SCH ×3 (05:38→17:17)
[2021-11-10] MEDS: INSULIN REGULAR, HUMAN 100 UNIT/ML 3 ML VIAL SQ PRN ×4 (05:39→22:11)
[2021-11-10 06:30] LABS: BASOPHILS % (AUTO) 0.5 % (0.0-2.0); EOSINOPHILS % (AUTO) 2.6 % (0.0-6.0); HEMATOCRIT 30 % (33-45); HEMOGLOBIN 9.9 g/dL (11.5-14.8); LYMPHOCYTES # (AUTO) 3.1 K/uL (0.8-4.8); LYMPHOCYTES % (AUTO) 38.3 % (20.0-44.0); MEAN CORPUSCULAR HGB CONC 33 g/dl (31.0-36.0); MEAN CORPUSCULAR VOLUME 102 fL (82-100); MONOCYTES # (AUTO) 1.2 K/uL (0.1-1.30); MONOCYTES % (AUTO) 15.1 % (2.0-12.0); NEUTROPHILS # (AUTO) 3.5 K/uL (1.8-8.9); NEUTROPHILS % (AUTO) 43.5 % (43.0-81.0); PLATELET COUNT (AUTO) 261 K/uL (150-450); RED BLOOD CELL COUNT(AUTO) 2.95 MIL/uL (4.0-5.2); WHITE BLOOD COUNT (AUTO) 8.1 K/uL (4.3-11.0)
[2021-11-10 06:37] LABS: CALCIUM, SERUM 8.2 mg/dL (8.5-10.1); CREATININE 0.4 mg/dL (0.6-1.3); POTASSIUM 4.2 mmol/L (3.5-5.1)
[2021-11-10 08:00] VITALS: BP 119/55
[2021-11-10] MEDS: CHOLECALCIFEROL 1,000 UNIT TABLET (VIT D3) GT SCH (08:45)
[2021-11-10] MEDS: ZINC SULFATE 220 MG CAPSULE GT SCH (08:45)
[2021-11-10] MEDS: MULTIVITAMINS,THERAGRAN 1 UDTAB TABLET GT SCH (08:45)
[2021-11-10] MEDS: MAGNESIUM OXIDE 400 MG TABLET GT SCH ×2 (08:45→16:04)
[2021-11-10] MEDS: PANTOPRAZOLE 40 MG/PACK PACK NG SCH (08:45)
[2021-11-10] MEDS: LISINOPRIL (5MG) 5 MG TABLET GT SCH (08:46)
[2021-11-10] MEDS: CALCIUM CARB 250MG /VITAMIN D 1 UDTAB GT SCH ×2 (08:46→16:04)
[2021-11-10] MEDS: VITAMINS A AND D 56.7 GM TUBE TP SCH (08:47)
[2021-11-10] MEDS: CLOTRIMAZOLE 1% 15 GM TUBE TP SCH ×4 (08:47→16:17)
[2021-11-10] MEDS: LACTOBACILLUS RHAMNOSUS GG 1 EACH CAP.SPRINK GT SCH (08:51)
[2021-11-10] MEDS: PROSTAT (PYXIS) 30 ML UDC GT SCH ×2 (08:52→16:19)
[2021-11-10] MEDS: SIMETHICONE SUSP 40 MG/0.6 ML BOTTLE GT SCH ×3 (08:54→16:05)
[2021-11-10] MEDS: ENOXAPARIN SODIUM 40 MG/0.4 ML DISP.SYRIN SQ SCH (10:05)
[2021-11-10] MEDS: HYDROCODONE/APAP 5/325MG TABLET GT PRN (10:09)
[2021-11-10 10:21] LABS: BAND % (MANUAL) 1 % (0.0-5.0); LYMPHOCYTES % (MANUAL) 34 % (16-48); MONOCYTES % (MANUAL) 7 % (0-11.0); NEUTROPHILS % (MANUAL) 43 (42-76); REACTIVE LYMPHOCYTES 14 % (0-0)
[2021-11-10 10:22] LABS: EOSINOPHILS % (MANUAL) 1 % (0-4)
[2021-11-10 12:00] VITALS: BP 127/49
[2021-11-10] MEDS: IV D5/0.45 NACL 1,000 ML IV PRN (15:39)
[2021-11-10 16:00] VITALS: BP 145/68
[2021-11-10] MEDS: VALPROIC ACID 250 MG/5 ML UDC GT SCH (17:18)
[2021-11-10] MEDS: FENOFIBRATE NANOCRYS (145 MG) 145 MG TABLET GT SCH (17:19)
[2021-11-10] MEDS ORDERED: ALENDRONATE 70 MG TABLET PO SCH (17:30)
[2021-11-10] MEDS: GLUCERNA 1.2 1,000 ML BOTTLE NG PRN (18:03)
[2021-11-10 20:00] VITALS: BP_SYST 142; BP_SYST 146; BP_DIAS 77; BP_DIAS 92
[2021-11-10] MEDS: INSULIN GLARGINE, 100 UNIT/ML CARTRIDGE SQ SCH (22:15)
[2021-11-11] VITALS: BP 146/77
[2021-11-11 00:30] VITALS: BP 142/92
[2021-11-11] MEDS: INSULIN REGULAR, HUMAN 100 UNIT/ML 3 ML VIAL SQ PRN ×4 (00:52→23:47)
[2021-11-11] MEDS: BLOOD SUGAR DIAGNOSTIC 1 EACH STRIP IN SCH ×5 (01:01→23:43)
[2021-11-11 04:00] VITALS: BP 137/77
[2021-11-11 04:30] VITALS: BP 137/77
[2021-11-11 06:10] LABS: BASOPHILS # (AUTO) 0.1 K/uL (0.0-0.2); BASOPHILS % (AUTO) 0.6 % (0.0-2.0); EOSINOPHILS % (AUTO) 3.1 % (0.0-6.0); HEMATOCRIT 30 % (33-45); LYMPHOCYTES # (AUTO) 3.5 K/uL (0.8-4.8); LYMPHOCYTES % (AUTO) 34.4 % (20.0-44.0); MEAN CORPUSCULAR HGB CONC 33 g/dl (31.0-36.0); MEAN CORPUSCULAR VOLUME 101 fL (82-100); MONOCYTES # (AUTO) 1.6 K/uL (0.1-1.30); MONOCYTES % (AUTO) 15.9 % (2.0-12.0); NEUTROPHILS # (AUTO) 4.7 K/uL (1.8-8.9); PLATELET COUNT (AUTO) 341 K/uL (150-450); RED BLOOD CELL COUNT(AUTO) 2.98 MIL/uL (4.0-5.2); WHITE BLOOD COUNT (AUTO) 10.2 K/uL (4.3-11.0)
[2021-11-11 06:20] LABS: CALCIUM, SERUM 8.4 mg/dL (8.5-10.1); CREATININE 0.3 mg/dL (0.6-1.3); MAGNESIUM 1.9 mg/dL (1.8-2.4); PHOSPHORUS 3.6 mg/dL (2.5-4.9); POTASSIUM 4.1 mmol/L (3.5-5.1)
[2021-11-11 08:54] LABS: EOSINOPHILS % (MANUAL) 3 % (0-4); LYMPHOCYTES % (MANUAL) 52 % (16-48); MONOCYTES % (MANUAL) 16 % (0-11.0); NEUTROPHILS % (MANUAL) 29 (42-76)
[2021-11-11] MEDS: PANTOPRAZOLE 40 MG/PACK PACK NG SCH (08:58)
[2021-11-11] MEDS: MULTIVITAMINS,THERAGRAN 1 UDTAB TABLET GT SCH (08:58)
[2021-11-11] MEDS: SIMETHICONE SUSP 40 MG/0.6 ML BOTTLE GT SCH ×3 (08:58→16:42)
[2021-11-11] MEDS: CALCIUM CARB 250MG /VITAMIN D 1 UDTAB GT SCH ×2 (08:58→16:40)
[2021-11-11] MEDS: LACTOBACILLUS RHAMNOSUS GG 1 EACH CAP.SPRINK GT SCH (08:59)
[2021-11-11] MEDS: CHOLECALCIFEROL 1,000 UNIT TABLET (VIT D3) GT SCH (08:59)
[2021-11-11] MEDS: MAGNESIUM OXIDE 400 MG TABLET GT SCH ×2 (09:00→16:42)
[2021-11-11] MEDS: LISINOPRIL (5MG) 5 MG TABLET GT SCH (09:01)
[2021-11-11] MEDS: ENOXAPARIN SODIUM 40 MG/0.4 ML DISP.SYRIN SQ SCH (09:04)
[2021-11-11] MEDS: PROSTAT (PYXIS) 30 ML UDC GT SCH ×2 (09:11→16:41)
[2021-11-11] MEDS: ZINC SULFATE 220 MG CAPSULE GT SCH (09:11)
[2021-11-11] MEDS: VITAMINS A AND D 56.7 GM TUBE TP SCH (09:50)
[2021-11-11] MEDS: CLOTRIMAZOLE 1% 15 GM TUBE TP SCH ×4 (09:50→16:42)
[2021-11-11] MEDS: FENOFIBRATE NANOCRYS (145 MG) 145 MG TABLET GT SCH (17:32)
[2021-11-11] MEDS: VALPROIC ACID 250 MG/5 ML UDC GT SCH (17:34)
[2021-11-11 20:00] VITALS: BP 120/65
[2021-11-11] MEDS: IV D5/0.45 NACL 1,000 ML IV PRN (20:51)
[2021-11-11] MEDS: GLUCERNA 1.2 1,000 ML BOTTLE NG PRN (20:54)
[2021-11-11] MEDS: INSULIN GLARGINE, 100 UNIT/ML CARTRIDGE SQ SCH (21:52)
[2021-11-12] VITALS: BP 118/63
[2021-11-12 04:00] VITALS: BP 133/61
[2021-11-12] MEDS: BLOOD SUGAR DIAGNOSTIC 1 EACH STRIP IN SCH ×3 (06:25→17:38)
[2021-11-12] MEDS: INSULIN REGULAR, HUMAN 100 UNIT/ML 3 ML VIAL SQ PRN ×2 (06:28→19:36)
[2021-11-12 08:00] VITALS: BP 123/61
[2021-11-12] MEDS: SIMETHICONE SUSP 40 MG/0.6 ML BOTTLE GT SCH ×3 (08:23→16:58)
[2021-11-12] MEDS: ZINC SULFATE 220 MG CAPSULE GT SCH (08:24)
[2021-11-12] MEDS: CHOLECALCIFEROL 1,000 UNIT TABLET (VIT D3) GT SCH (08:24)
[2021-11-12] MEDS: LACTOBACILLUS RHAMNOSUS GG 1 EACH CAP.SPRINK GT SCH (08:25)
[2021-11-12] MEDS: PANTOPRAZOLE 40 MG/PACK PACK NG SCH (08:25)
[2021-11-12] MEDS: MULTIVITAMINS,THERAGRAN 1 UDTAB TABLET GT SCH (08:25)
[2021-11-12] MEDS: MAGNESIUM OXIDE 400 MG TABLET GT SCH ×2 (08:25→16:59)
[2021-11-12] MEDS: CALCIUM CARB 250MG /VITAMIN D 1 UDTAB GT SCH ×2 (08:25→16:59)
[2021-11-12] MEDS: LISINOPRIL (5MG) 5 MG TABLET GT SCH (08:26)
[2021-11-12] MEDS: PROSTAT (PYXIS) 30 ML UDC GT SCH ×2 (08:27→16:58)
[2021-11-12] MEDS: VITAMINS A AND D 56.7 GM TUBE TP SCH (08:28)
[2021-11-12] MEDS: CLOTRIMAZOLE 1% 15 GM TUBE TP SCH ×4 (08:28→17:00)
[2021-11-12] MEDS: ENOXAPARIN SODIUM 40 MG/0.4 ML DISP.SYRIN SQ SCH (09:23)
[2021-11-12 16:00] VITALS: BP 108/60
[2021-11-12] MEDS: VALPROIC ACID 250 MG/5 ML UDC GT SCH (18:29)
[2021-11-12] MEDS: FENOFIBRATE NANOCRYS (145 MG) 145 MG TABLET GT SCH (18:29)
[2021-11-12 20:34] VITALS: BP 147/61
[2021-11-12] MEDS: INSULIN GLARGINE, 100 UNIT/ML CARTRIDGE SQ SCH (22:11)
[2021-11-12] MEDS: GLUCERNA 1.2 1,000 ML BOTTLE NG PRN (22:53)
[2021-11-12 23:51] VITALS: BP 118/76
[2021-11-13] MEDS: BLOOD SUGAR DIAGNOSTIC 1 EACH STRIP IN SCH ×5 (00:58→23:45)
[2021-11-13] MEDS: HYDROCODONE/APAP 5/325MG TABLET GT PRN (03:53)
[2021-11-13] MEDS: INSULIN REGULAR, HUMAN 100 UNIT/ML 3 ML VIAL SQ PRN ×5 (04:21→23:59)
[2021-11-13 04:37] VITALS: BP 117/61
[2021-11-13 07:28] LABS: BASOPHILS # (AUTO) 0.1 K/uL (0.0-0.2); BASOPHILS % (AUTO) 0.6 % (0.0-2.0); EOSINOPHILS % (AUTO) 2.7 % (0.0-6.0); HEMATOCRIT 28 % (33-45); HEMOGLOBIN 9.3 g/dL (11.5-14.8); LYMPHOCYTES # (AUTO) 3.6 K/uL (0.8-4.8); LYMPHOCYTES % (AUTO) 36.5 % (20.0-44.0); MEAN CORPUSCULAR HGB CONC 33 g/dl (31.0-36.0); MEAN CORPUSCULAR VOLUME 102 fL (82-100); MONOCYTES # (AUTO) 1.6 K/uL (0.1-1.30); MONOCYTES % (AUTO) 16.5 % (2.0-12.0); NEUTROPHILS # (AUTO) 4.2 K/uL (1.8-8.9); NEUTROPHILS % (AUTO) 43.7 % (43.0-81.0); PLATELET COUNT (AUTO) 445 K/uL (150-450); RED BLOOD CELL COUNT(AUTO) 2.79 MIL/uL (4.0-5.2); WHITE BLOOD COUNT (AUTO) 9.7 K/uL (4.3-11.0)
[2021-11-13 08:17] VITALS: BP 130/75
[2021-11-13] MEDS: ZINC SULFATE 220 MG CAPSULE GT SCH (09:00)
[2021-11-13] MEDS: CALCIUM CARB 250MG /VITAMIN D 1 UDTAB GT SCH ×2 (09:00→17:09)
[2021-11-13] MEDS: LACTOBACILLUS RHAMNOSUS GG 1 EACH CAP.SPRINK GT SCH (09:00)
[2021-11-13] MEDS: MULTIVITAMINS,THERAGRAN 1 UDTAB TABLET GT SCH (09:00)
[2021-11-13] MEDS: MAGNESIUM OXIDE 400 MG TABLET GT SCH ×2 (09:00→17:09)
[2021-11-13] MEDS: CHOLECALCIFEROL 1,000 UNIT TABLET (VIT D3) GT SCH (09:01)
[2021-11-13] MEDS: LISINOPRIL (5MG) 5 MG TABLET GT SCH (09:01)
[2021-11-13] MEDS: PANTOPRAZOLE 40 MG/PACK PACK NG SCH (09:01)
[2021-11-13] MEDS: SIMETHICONE SUSP 40 MG/0.6 ML BOTTLE GT SCH ×3 (09:18→17:09)
[2021-11-13] MEDS: ENOXAPARIN SODIUM 40 MG/0.4 ML DISP.SYRIN SQ SCH (10:05)
[2021-11-13 10:25] LABS: CALCIUM, SERUM 8.6 mg/dL (8.5-10.1); CREATININE 0.4 mg/dL (0.6-1.3); PHOSPHORUS 4.1 mg/dL (2.5-4.9); POTASSIUM 4.3 mmol/L (3.5-5.1)
[2021-11-13] MEDS: VITAMINS A AND D 56.7 GM TUBE TP SCH (11:49)
[2021-11-13] MEDS: CLOTRIMAZOLE 1% 15 GM TUBE TP SCH ×4 (11:49→17:57)
[2021-11-13] MEDS: PROSTAT (PYXIS) 30 ML UDC GT SCH ×2 (11:51→17:57)
[2021-11-13 11:52] LABS: BAND % (MANUAL) 4 % (0.0-5.0); BASOPHILS % (MANUAL) 2 % (0.0-2.0); LYMPHOCYTES % (MANUAL) 32 % (16-48); METAMYELOCYTES % 1 % (0-0); MONOCYTES % (MANUAL) 18 % (0-11.0); MYELOCYTES % 1 % (0-0); NEUTROPHILS % (MANUAL) 42 (42-76)
[2021-11-13 12:00] VITALS: BP 116/66
[2021-11-13 15:59] VITALS: BP 128/62
[2021-11-13] MEDS: FENOFIBRATE NANOCRYS (145 MG) 145 MG TABLET GT SCH (17:09)
[2021-11-13] MEDS: VALPROIC ACID 250 MG/5 ML UDC GT SCH (17:10)
[2021-11-13] MEDS: GLUCERNA 1.2 1,000 ML BOTTLE NG PRN (17:29)
[2021-11-13] MEDS: ACETAMINOPHEN 650 MG/20.3 ML UDC NG PRN ×2 (17:56→23:55)
[2021-11-13] MEDS: GUAIFENESIN 300 MG/15 ML UDC GT PRN (17:56)
[2021-11-13 20:00] VITALS: BP 130/68
[2021-11-13] MEDS: INSULIN GLARGINE, 100 UNIT/ML CARTRIDGE SQ SCH (21:54)
[2021-11-14] VITALS: BP 139/75
[2021-11-14 04:00] VITALS: BP 126/71
[2021-11-14] MEDS: BLOOD SUGAR DIAGNOSTIC 1 EACH STRIP IN SCH ×4 (06:31→23:02)
[2021-11-14] MEDS: INSULIN REGULAR, HUMAN 100 UNIT/ML 3 ML VIAL SQ PRN ×4 (06:37→23:04)
[2021-11-14 08:29] VITALS: BP 126/69
[2021-11-14] MEDS: LISINOPRIL (5MG) 5 MG TABLET GT SCH (08:42)
[2021-11-14] MEDS: LACTOBACILLUS RHAMNOSUS GG 1 EACH CAP.SPRINK GT SCH (08:42)
[2021-11-14] MEDS: PANTOPRAZOLE 40 MG/PACK PACK NG SCH (08:42)
[2021-11-14] MEDS: ZINC SULFATE 220 MG CAPSULE GT SCH (08:43)
[2021-11-14] MEDS: SIMETHICONE SUSP 40 MG/0.6 ML BOTTLE GT SCH ×3 (08:43→16:06)
[2021-11-14] MEDS: CHOLECALCIFEROL 1,000 UNIT TABLET (VIT D3) GT SCH (08:43)
[2021-11-14] MEDS: CALCIUM CARB 250MG /VITAMIN D 1 UDTAB GT SCH ×2 (08:43→16:05)
[2021-11-14] MEDS: MAGNESIUM OXIDE 400 MG TABLET GT SCH ×2 (08:43→16:05)
[2021-11-14] MEDS: MULTIVITAMINS,THERAGRAN 1 UDTAB TABLET GT SCH (08:43)
[2021-11-14] MEDS: VITAMINS A AND D 56.7 GM TUBE TP SCH (08:44)
[2021-11-14] MEDS: CLOTRIMAZOLE 1% 15 GM TUBE TP SCH ×4 (09:00→16:10)
[2021-11-14] MEDS: PROSTAT (PYXIS) 30 ML UDC GT SCH ×2 (09:00→16:06)
[2021-11-14] MEDS: ENOXAPARIN SODIUM 40 MG/0.4 ML DISP.SYRIN SQ SCH (10:36)
[2021-11-14 11:56] VITALS: BP 147/87
[2021-11-14] MEDS: GUAIFENESIN 300 MG/15 ML UDC GT PRN (13:04)
[2021-11-14 16:11] VITALS: BP 132/69
[2021-11-14] MEDS: ACETAMINOPHEN 650 MG/20.3 ML UDC NG PRN (16:17)
[2021-11-14] MEDS: IPRATROPIUM NEB FS 0.5 MG/2.5 ML AMPUL.NEB NEB SCH ×2 (16:47→20:08)
[2021-11-14] MEDS: ACETYLCYSTEINE 10% SOLN 400 MG/4 ML VIAL NEB SCH ×2 (16:48→23:48)
[2021-11-14] MEDS: ALBUTEROL HALF STRENGTH 1.25 MG/3 ML VIAL.NEB NEB SCH ×2 (16:48→20:08)
[2021-11-14] MEDS: GLUCERNA 1.2 1,000 ML BOTTLE NG PRN (17:18)
[2021-11-14] MEDS: FENOFIBRATE NANOCRYS (145 MG) 145 MG TABLET GT SCH (17:33)
[2021-11-14] MEDS: VALPROIC ACID 250 MG/5 ML UDC GT SCH (17:33)
[2021-11-14 20:00] VITALS: BP 129/87
[2021-11-14] MEDS: INSULIN GLARGINE, 100 UNIT/ML CARTRIDGE SQ SCH (23:00)
[2021-11-15] VITALS: BP 124/75
[2021-11-15] MEDS: ALBUTEROL HALF STRENGTH 1.25 MG/3 ML VIAL.NEB NEB SCH ×4 (02:16→19:39)
[2021-11-15] MEDS: IPRATROPIUM NEB FS 0.5 MG/2.5 ML AMPUL.NEB NEB SCH ×4 (02:16→19:39)
[2021-11-15 04:00] VITALS: BP 116/53
[2021-11-15] MEDS: BLOOD SUGAR DIAGNOSTIC 1 EACH STRIP IN SCH ×3 (06:14→17:49)
[2021-11-15] MEDS: ACETAMINOPHEN 650 MG/20.3 ML UDC NG PRN ×2 (06:17→12:22)
[2021-11-15] MEDS: INSULIN REGULAR, HUMAN 100 UNIT/ML 3 ML VIAL SQ PRN ×3 (06:18→17:50)
[2021-11-15 06:40] LABS: BASOPHILS % (AUTO) 0.6 % (0.0-2.0); EOSINOPHILS % (AUTO) 3.4 % (0.0-6.0); HEMATOCRIT 31 % (33-45); HEMOGLOBIN 9.8 g/dL (11.5-14.8); LYMPHOCYTES # (AUTO) 3.1 K/uL (0.8-4.8); LYMPHOCYTES % (AUTO) 41.8 % (20.0-44.0); MEAN CORPUSCULAR HGB CONC 32 g/dl (31.0-36.0); MEAN CORPUSCULAR VOLUME 101 fL (82-100); MONOCYTES # (AUTO) 1.1 K/uL (0.1-1.30); NEUTROPHILS # (AUTO) 2.9 K/uL (1.8-8.9); NEUTROPHILS % (AUTO) 39.2 % (43.0-81.0); PLATELET COUNT (AUTO) 482 K/uL (150-450); RED BLOOD CELL COUNT(AUTO) 3.03 MIL/uL (4.0-5.2); WHITE BLOOD COUNT (AUTO) 7.3 K/uL (4.3-11.0)
[2021-11-15 06:51] LABS: CALCIUM, SERUM 8.7 mg/dL (8.5-10.1); CREATININE 0.4 mg/dL (0.6-1.3); PHOSPHORUS 4.7 mg/dL (2.5-4.9); POTASSIUM 4.4 mmol/L (3.5-5.1)
[2021-11-15] MEDS: ACETYLCYSTEINE 10% SOLN 400 MG/4 ML VIAL NEB SCH ×2 (07:58→14:32)
[2021-11-15] MEDS: VITAMINS A AND D 56.7 GM TUBE TP SCH (09:36)
[2021-11-15] MEDS: CLOTRIMAZOLE 1% 15 GM TUBE TP SCH ×4 (09:36→17:47)
[2021-11-15] MEDS: SIMETHICONE SUSP 40 MG/0.6 ML BOTTLE GT SCH ×3 (09:37→17:51)
[2021-11-15] MEDS: PROSTAT (PYXIS) 30 ML UDC GT SCH ×2 (09:38→17:48)
[2021-11-15] MEDS: MAGNESIUM OXIDE 400 MG TABLET GT SCH ×2 (09:39→17:48)
[2021-11-15] MEDS: LACTOBACILLUS RHAMNOSUS GG 1 EACH CAP.SPRINK GT SCH (09:39)
[2021-11-15] MEDS: CALCIUM CARB 250MG /VITAMIN D 1 UDTAB GT SCH ×2 (09:39→17:48)
[2021-11-15] MEDS: CHOLECALCIFEROL 1,000 UNIT TABLET (VIT D3) GT SCH (09:39)
[2021-11-15] MEDS: MULTIVITAMINS,THERAGRAN 1 UDTAB TABLET GT SCH (09:39)
[2021-11-15] MEDS: ZINC SULFATE 220 MG CAPSULE GT SCH (09:39)
[2021-11-15] MEDS: LISINOPRIL (5MG) 5 MG TABLET GT SCH (09:40)
[2021-11-15] MEDS: PANTOPRAZOLE 40 MG/PACK PACK NG SCH (09:41)
[2021-11-15] MEDS: ENOXAPARIN SODIUM 40 MG/0.4 ML DISP.SYRIN SQ SCH (09:57)
[2021-11-15] MEDS: FENOFIBRATE NANOCRYS (145 MG) 145 MG TABLET GT SCH (17:48)
[2021-11-15] MEDS: HYDROCODONE/APAP 5/325MG TABLET GT PRN (17:49)
[2021-11-15] MEDS: VALPROIC ACID 250 MG/5 ML UDC GT SCH (17:49)
[2021-11-15 20:00] VITALS: BP 102/59
[2021-11-15] MEDS: INSULIN GLARGINE, 100 UNIT/ML CARTRIDGE SQ SCH (22:51)
[2021-11-16] MEDS: ALBUTEROL HALF STRENGTH 1.25 MG/3 ML VIAL.NEB NEB SCH ×3 (00:31→14:37)
[2021-11-16] MEDS: ACETYLCYSTEINE 10% SOLN 400 MG/4 ML VIAL NEB SCH ×3 (00:31→14:41)
[2021-11-16] MEDS: IPRATROPIUM NEB FS 0.5 MG/2.5 ML AMPUL.NEB NEB SCH ×3 (00:31→14:37)
[2021-11-16] MEDS: BLOOD SUGAR DIAGNOSTIC 1 EACH STRIP IN SCH ×4 (00:34→17:15)
[2021-11-16] MEDS: INSULIN REGULAR, HUMAN 100 UNIT/ML 3 ML VIAL SQ PRN ×4 (00:35→17:18)
[2021-11-16] MEDS: GLUCERNA 1.2 1,000 ML BOTTLE NG PRN (04:20)
[2021-11-16 08:00] VITALS: BP 100/69
[2021-11-16] MEDS: SIMETHICONE SUSP 40 MG/0.6 ML BOTTLE GT SCH ×3 (08:26→16:49)
[2021-11-16] MEDS: VITAMINS A AND D 56.7 GM TUBE TP SCH (08:26)
[2021-11-16] MEDS: CLOTRIMAZOLE 1% 15 GM TUBE TP SCH ×4 (08:27→17:15)
[2021-11-16] MEDS: CALCIUM CARB 250MG /VITAMIN D 1 UDTAB GT SCH ×2 (08:27→16:49)
[2021-11-16] MEDS: LACTOBACILLUS RHAMNOSUS GG 1 EACH CAP.SPRINK GT SCH (08:27)
[2021-11-16] MEDS: MAGNESIUM OXIDE 400 MG TABLET GT SCH ×2 (08:27→16:49)
[2021-11-16] MEDS: PANTOPRAZOLE 40 MG/PACK PACK NG SCH (08:27)
[2021-11-16] MEDS: CHOLECALCIFEROL 1,000 UNIT TABLET (VIT D3) GT SCH (08:28)
[2021-11-16] MEDS: LISINOPRIL (5MG) 5 MG TABLET GT SCH (08:28)
[2021-11-16] MEDS: ZINC SULFATE 220 MG CAPSULE GT SCH (08:28)
[2021-11-16] MEDS: PROSTAT (PYXIS) 30 ML UDC GT SCH ×2 (08:29→16:51)
[2021-11-16] MEDS: MULTIVITAMINS,THERAGRAN 1 UDTAB TABLET GT SCH (08:31)
[2021-11-16] MEDS: ENOXAPARIN SODIUM 40 MG/0.4 ML DISP.SYRIN SQ SCH (09:36)
[2021-11-16] MEDS: ACETAMINOPHEN 650 MG/20.3 ML UDC NG PRN ×2 (10:01→16:49)
[2021-11-16 16:00] VITALS: BP 102/53
[2021-11-16] MEDS: VALPROIC ACID 250 MG/5 ML UDC GT SCH (17:21)
[2021-11-16] MEDS: FENOFIBRATE NANOCRYS (145 MG) 145 MG TABLET GT SCH (17:21)
== END 2021-11-16 17:55 | DRG 720 ==
LOC: ER 06:44 → TRANSITION 08:59 → ICU 09:20 → TELE 11-07 13:41 → MED 11-15 09:04
PROVIDERS: ADMIT Student in an Organized Health Care Education/Training Program; ATTEND Student in an Organized Health Care Education/Training Program
PROC: 02HV33Z Insertion of Infusion Device into Superior Vena Cava, Percutaneous Approach (ICD-10-PCS; principal; 2021-11-04)
PROC: B548ZZA Ultrasonography of Superior Vena Cava, Guidance (ICD-10-PCS; 2021-11-04)
DX: A41.9 Sepsis, unspecified organism (principal); J96.01 Acute respiratory failure with hypoxia; J69.0 Pneumonitis due to inhalation of food and vomit; R65.21 Severe sepsis with septic shock; E43 Unspecified severe protein-calorie malnutrition; S72.332A Displaced oblique fracture of shaft of left femur, initial encounter for closed fracture; E86.0 Dehydration; E87.0 Hyperosmolality and hypernatremia; N17.9 Acute kidney failure, unspecified; G35 Multiple sclerosis; Z20.822 Contact with and (suspected) exposure to COVID-19; G40.909 Epilepsy, unspecified, not intractable, without status epilepticus; G80.9 Cerebral palsy, unspecified; I10 Essential (primary) hypertension; E11.65 Type 2 diabetes mellitus with hyperglycemia; M24.561 Contracture, right knee; M24.562 Contracture, left knee; R13.10 Dysphagia, unspecified; M81.0 Age-related osteoporosis without current pathological fracture; M41.9 Scoliosis, unspecified; Z79.4 Long term (current) use of insulin; Z79.84 Long term (current) use of oral hypoglycemic drugs; Z79.83 Long term (current) use of bisphosphonates; Z93.1 Gastrostomy status; Z99.3 Dependence on wheelchair; Z74.01 Bed confinement status; L71.9 Rosacea, unspecified; Z83.3 Family history of diabetes mellitus; Z82.49 Family history of ischemic heart disease and other diseases of the circulatory system; E87.5 Hyperkalemia; H91.90 Unspecified hearing loss, unspecified ear; G47.00 Insomnia, unspecified; F81.9 Developmental disorder of scholastic skills, unspecified; Z87.19 Personal history of other diseases of the digestive system; L85.3 Xerosis cutis; X58.XXXA Exposure to other specified factors, initial encounter; Y92.9 Unspecified place or not applicable; H54.7 Unspecified visual loss
CPT/HCPCS: 31720; 36415; 36600; 71045-TC; 73020; 73552; 73560-TC; 73700-TC; 80048-TC; 80076-TC; 80202-TC; 81001; 82533; 82803-TC; 82962-TC; 83605-TC; 83735-TC; 83880; 84100-TC; 84443-TC; 84484-TC; 85025-TC; 87040-TC; 87086-TC; 94799-TC; A6253; A6403; C9803; G0378; J1650; J1815; J2543; J3370; J3490; J7030; J7050; J7060; J7070

== ENCOUNTER 2022-02-01 16:15 | Inpatient (IN) | payer MEDICAID ==
[~2022-02-01] VITALS: Ht 152.4 cm; Wt 52.2 kg
[~2022-02-01 16:15] MED LIST changes: -AZIT250T PO
--- NOTE | 2022-02-01 16:20 | NUR ---
JATIN AVALOS From [facility] cough/congestion, hypotensive, low O2sats 5lpm via NC. patient is MR, non verbal. connected to the monitor and pulse ox, kept comfortable, will continue to monitor accordingly.
[2022-02-01] MEDS ORDERED: IV NS 0.9% 1,000 ML BAG IV ONE ×2 (16:30→20:30)
--- NOTE | 2022-02-01 16:40 | NUR ---
SUBMITTED MOVE SHEET
[2022-02-01] MEDS ORDERED: NUT.237L31 GT (17:19)
[2022-02-01] MEDS ORDERED: EMPA10TA PO (17:19)
[2022-02-01 17:31] LABS: BILIRUBIN,URINE NEGATIVE (NEGATIVE); COLOR,URINE YELLOW (YELLOW); LEUKOCYTE ESTERASE ,URINE MODERATE (NEGATIVE); NITRITE, URINE NEGATIVE (NEGATIVE); PROTEIN,URINE 100 mg/dl (NEGATIVE); UGLUCOSE >=1000 mg/dL (NEGATIVE); UROBILINOGEN,URINE 0.2 EU/dL (0.2)
[2022-02-01 17:38] LABS: BACTERIA,URINE 3+ /HPF (None Seen); RBC,URINE TOO NUMEROUS TO COUN /HPF (0-2); SQUAMOUS EPITHELIAL CELL,UR 0-2 /HPF (None Seen); WBC,URINE 51-80 /HPF (0-3)
--- NOTE | 2022-02-01 17:47 | NUR ---
PAGED EPIC ICICLE MACHINE OPERATOR
[2022-02-01 17:51] LABS: BASOPHILS % (AUTO) 0.4 % (0.0-2.0); EOSINOPHILS % (AUTO) 2.1 % (0.0-6.0); HEMATOCRIT 37 % (33-45); HEMOGLOBIN 11.5 g/dL (11.5-14.8); LYMPHOCYTES # (AUTO) 2.5 K/uL (0.8-4.8); LYMPHOCYTES % (AUTO) 31.9 % (20.0-44.0); MEAN CORPUSCULAR HGB CONC 31 g/dl (31.0-36.0); MEAN CORPUSCULAR VOLUME 100 fL (82-100); MONOCYTES # (AUTO) 0.9 K/uL (0.1-1.30); MONOCYTES % (AUTO) 10.8 % (2.0-12.0); NEUTROPHILS # (AUTO) 4.4 K/uL (1.8-8.9); NEUTROPHILS % (AUTO) 54.8 % (43.0-81.0); PLATELET COUNT (AUTO) 274 K/uL (150-450); RED BLOOD CELL COUNT(AUTO) 3.68 MIL/uL (4.0-5.2)
[2022-02-01] MEDS ORDERED: IV NS 0.9% 500 ML BAG IV ONE (18:00)
[2022-02-01] MEDS ORDERED: VANCOMYCIN 1 GM in IV D5W 250 ML IV ONE (18:00)
[2022-02-01] MEDS ORDERED: PIPERACILLIN /TAZOBACTAM 3.375 G in IV D5W 50 ML IV ONE (18:00)
--- NOTE | 2022-02-01 18:20 | NUR ---
ER AND HOSPITALIST ON PANEL
[2022-02-01 18:28] LABS: ALANINE AMINOTRANSFERASE 7 U/L (12-78); ALBUMIN 1.9 g/dL (3.4-5.0); ALKALINE PHOSPHATASE 102 U/L (46-116); ASPARTATE AMINOTRANSFERASE 50 U/L (15-37); BILIRUBIN,DIRECT 0.1 mg/dL (0.0-0.2); BILIRUBIN,TOTAL 0.3 mg/dL (0.2-1.0); CALCIUM, SERUM 10.5 mg/dL (8.5-10.1); CARBON DIOXIDE 38 mmol/L (21-32); CHLORIDE 110 mmol/L (98-107); POTASSIUM 5.5 mmol/L (3.5-5.1); SODIUM SERUM 151 mmol/L (136-145); TOTAL PROTEIN, SERUM 7.9 g/dL (6.4-8.2)
[2022-02-01] MEDS ORDERED: MAGNESIUM HYDROXIDE 30 ML UDC PO PRN (18:30)
[2022-02-01] MEDS ORDERED: ONDANSETRON HCL/PF 4 MG/2 ML VIAL IVP PRN (18:30)
[2022-02-01] MEDS ORDERED: MAG HYDROX/AL HYDROX/SIMETH 30 ML UDC PO PRN (18:30)
[2022-02-01] MEDS ORDERED: IV NS 0.9% 1,000 ML IV PRN (18:30)
[2022-02-01] MEDS ORDERED: CHLORHEXIDINE GLUCONATE 15 ML UDC MM SCH (18:30)
[2022-02-01] MEDS ORDERED: Z GUARD REMEDY 4 OZ OINT TP PRN (18:30)
[2022-02-01] MEDS ORDERED: GLUCERNA 1.5 1,000 ML BOTTLE GT SCH (18:30)
[2022-02-01 19:01] LABS: UREA NITROGEN, BLOOD 98 mg/dL (7-18)
[2022-02-01 19:02] LABS: GLUCOSE 383 mg/dL (74-106)
--- NOTE | 2022-02-01 19:03 | NUR ---
BUN = 98 AND LACTIC ACID = 2
[2022-02-01 21:01] LABS: BASOPHILS % (MANUAL) 1 % (0.0-2.0); EOSINOPHILS % (MANUAL) 3 % (0-4); LYMPHOCYTES % (MANUAL) 32 % (16-48); MONOCYTES % (MANUAL) 7 % (0-11.0); NEUTROPHILS % (MANUAL) 56 (42-76); REACTIVE LYMPHOCYTES 1 % (0-0)
--- NOTE | 2022-02-01 21:02 | NUR ---
ROOM 105
--- NOTE | 2022-02-01 21:28 | NUR ---
report given to zhanna carlos
--- NOTE | 2022-02-01 21:32 | NUR ---
transferring pt to 105 in via acls
--- NOTE | 2022-02-01 21:45 | NUR ---
2145 Admitted from ER 51 year old female via [facility] with Dx of Sepsis. Patient is awake but non verbal. Accompanied by sister Nadia. Transferred to bed, total assist. Admission care rendered. Skin assessment done. 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 PEG tube intact. Noted with right nephrostomy connected to drainage bag. Noted with adequate amount of yellow urine with sedimentation. Site reinforced with clear dressing. Perianal noted with excoriation/rash. Small amount of yellow soft bm noted. Good pericare rendered. Applied with generous amount of skin barrier for protection. Per sister patient has "broken" left femur. Handled patient with care when turning. Admitted with plastic pillow cushion under her back. Used 5 pillows for repositioning. All needs attended. Caregiver at bedside. Call light placed within reach and instructed to call for assistance. Patient noted with no IV sites pending midline insertion.
[2022-02-01] MEDS: ACETAMINOPHEN 325 MG TABLET PO PRN (22:59)
--- NOTE | 2022-02-01 22:59 | NUR ---
POISON INFORMATION SPECIALIST NOTE TYLENOL GIVEN FOR PAIN PER SISTER REQUEST.
[2022-02-02] VITALS: BP 95/52
[2022-02-02] MEDS ORDERED: PIPERACILLIN /TAZOBACTAM 3.375 G VIAL IV ONE ×2 (02:02→06:34)
--- NOTE | 2022-02-02 02:02 | NUR ---
DUCO POLISHER NOTE ZOSYN GIVEN LATE. MIDLINE INSERTED AT THIS TIME, R. UA #20G.
[2022-02-02] MEDS: PIPERACILLIN /TAZOBACTAM 3.375 G in IV D5W 50 ML IV SCH ×5 (02:09→23:25)
[2022-02-02 04:00] VITALS: BP 99/55
--- NOTE | 2022-02-02 05:06 | NUR ---
SUPERVISOR [employer] NOTE PATIENT SISTER REQUEST FEEDING TO BE DIABETIC SOUCE RATHER THAN GLUCERNA. MESSAGED DETACHER HAKAN NAGY. OK TO CHANGE PER DOCTOR.
[2022-02-02] MEDS: ACETAMINOPHEN 325 MG TABLET PO PRN ×2 (05:37→20:03)
--- NOTE | 2022-02-02 05:44 | NUR ---
PROCUREMENT COST COORDINATOR NOTE TYLENOL GIVEN FOR PAIN AT THIS TIME.
[2022-02-02 06:24] LABS: BASOPHILS # (AUTO) 0.1 K/uL (0.0-0.2); BASOPHILS % (AUTO) 0.7 % (0.0-2.0); HEMATOCRIT 30 % (33-45); HEMOGLOBIN 9.5 g/dL (11.5-14.8); LYMPHOCYTES % (AUTO) 35.8 % (20.0-44.0); MEAN CORPUSCULAR HGB CONC 32 g/dl (31.0-36.0); MEAN CORPUSCULAR VOLUME 99 fL (82-100); MONOCYTES # (AUTO) 0.9 K/uL (0.1-1.30); MONOCYTES % (AUTO) 11.4 % (2.0-12.0); NEUTROPHILS # (AUTO) 4.2 K/uL (1.8-8.9); NEUTROPHILS % (AUTO) 50.1 % (43.0-81.0); PLATELET COUNT (AUTO) 202 K/uL (150-450); RED BLOOD CELL COUNT(AUTO) 2.98 MIL/uL (4.0-5.2); WHITE BLOOD COUNT (AUTO) 8.3 K/uL (4.3-11.0)
[2022-02-02] MEDS ORDERED: VANCOMYCIN 1 GM VIAL ONE (06:34)
[2022-02-02] MEDS: VANCOMYCIN 0.75 GM in IV D5W 250 ML IV SCH ×2 (06:41→17:47)
--- NOTE | 2022-02-02 07:08 | NUR ---
CAD TECHNICIAN CLOSING NOTE PATIENT IN BED, OBTUNDED. BILL PEDDLER IN THE ROOM. NO S/S OF APPARENT DISTRESS IN 4LPM OF O2 VIA NC. TELE MONITOR READING SR WITH 77 BPM AT THIS TIME. NOT EXHIBITING PAIN VIA FLACC AT THIS TIME. NEPROSTOMY DRAINING CLEAR YELLOW OUTPUT WITH 300 ML OF OUTPUT. ALL NEEDS ATTENDED. ALL SCHEDULED MEDICATIONS ADMINISTERED. SAFETY KEPT IN PLACE THE WHOLE SHIFT. ENDORSED TO MUMTAZ RAGSDALE FOR CONTINUITY OF CARE.
[2022-02-02 07:14] LABS: CALCIUM, SERUM 9.5 mg/dL (8.5-10.1); CREATININE 0.8 mg/dL (0.6-1.3); MAGNESIUM 2.9 mg/dL (1.8-2.4); PHOSPHORUS 2.2 mg/dL (2.5-4.9); POTASSIUM 4.3 mmol/L (3.5-5.1)
--- NOTE | 2022-02-02 07:25 | NUR ---
RN OPENING NOTE PATIENT IN BED, OBTUNDED. RETAIL MANAGER IN THE ROOM. NO S/S OF APPARENT DISTRESS IN 4LPM OF O2 VIA NC SATING AT 97%. TELE MONITOR READING SR WITH 77 BPM AT THIS TIME. NOT EXHIBITING PAIN VIA FLACC AT THIS TIME. PEG NOTED, NO NUTRITION RUNNING. IV ACCESS CAROLA MIDLINE RUNNING NS @ 75ML/HR. ALL SAFETY MEASURES IN PLACE, WILL CONT TO WATCH THROUGHOUT SHIFT.
[2022-02-02] MEDS: PANTOPRAZOLE 40 MG/PACK PACK GT SCH (07:30)
--- NOTE | 2022-02-02 07:56 | NUR ---
RECEIVED CRITICAL RESULT FROM LAB SODIUM 157
[2022-02-02 08:00] VITALS: BP 120/91
[2022-02-02] MEDS ORDERED: VANCOMYCIN HCL 0.75 GM in IV D5W 250 ML IV SCH (08:00)
--- NOTE | 2022-02-02 09:08 | NUR ---
WOUND CARE CONSULT: PT PRESENTS WITH PERIANAL INCONTINENCE ASSOCIATED SKIN DAMAGE, LEFT TOENAIL DISCOLORATION AND RT HEEL CALLUS/SCAR, PRESENT ON ADMISSION. RECOMMENDATIONS MADE FOR SKIN PROTECTION. DISCUSSED WITH NURSING STAFF. PT TO BE PLACED ON JHOANA ISOFLEX LOW AIRLOSS BED. IN AGREEMENT WITH PLAN OF CARE. Addendum: 02/02/22 at 0909 by CHAYO YOUSIF WNDNU Amended: Links added.
[2022-02-02] MEDS: VALPROIC ACID 250 MG/5 ML UDC GT SCH ×2 (09:56→16:08)
[2022-02-02] MEDS: CALCIUM CARB 600MG /VIT D 1 EACH TABLET GT SCH ×2 (09:56→16:08)
[2022-02-02] MEDS: ATENOLOL 50 MG TABLET GT SCH (09:56)
[2022-02-02] MEDS: SIMETHICONE SUSP 40 MG/0.6 ML BOTTLE GT SCH ×3 (09:56→16:08)
[2022-02-02] MEDS: MAGNESIUM OXIDE 400 MG TABLET GT SCH ×2 (09:56→16:08)
[2022-02-02] MEDS: CHOLECALCIFEROL 1,000 UNIT TABLET (VIT D3) GT SCH (09:57)
--- NOTE | 2022-02-02 09:57 | NUR ---
Previous save did not work. All due meds given in timely fashion.
[2022-02-02] MEDS ORDERED: GLUCERNA 1.5 1,000 ML BOTTLE NG PRN (10:00)
[2022-02-02] MEDS ORDERED: NEUTRA PHOS 1 POWD.PACKET GT ONE (10:00)
[2022-02-02] MEDS: IV 1/2NS 1000 ML 1,000 ML IV SCH (11:21)
[2022-02-02 12:00] VITALS: BP 97/46
[2022-02-02] MEDS ORDERED: GLUCERNA 1.5 1,000 ML BOTTLE GT SCH (15:30)
[2022-02-02 16:00] VITALS: BP 98/52
[2022-02-02] MEDS: GLUCERNA 1.2 1,000 ML BOTTLE NG PRN (17:31)
[2022-02-02] MEDS: MAGNESIUM HYDROXIDE 30 ML UDC GT SCH (17:48)
--- NOTE | 2022-02-02 19:10 | NUR ---
RN NOTES RECEIVED REPORT FROM MORNING RN. PATIENT IN BED CAREGIVER AT BEDSIDE. WITH OXYGEN INHALATION AT 4LPM VIA NASAL CANULA SATING 96% NO SOB NO DISTRESS NOTED AT THIS TIME. WITH IV ACCESS AT R UA MIDLINE PATENT ON CONTINUOS IVF 1/2 NS @ 75CC/HR. WITH GT INTACT ON CONTINUOUS GT FEEDING GLUCERNA @ 20 CC/HR TOLERATING WILL. WILL INCREASE BY 10 Q6 HOURS TO REACH 50CC GOAL. WITH NEPHROSTOMY TUBE INTACT DRAINING DARK YELLOW OUTPUT. ALL SAFETY MEASURES IN PLACE AT ALL TIMES. HOB ELEVATED. CALL LIGHT WITHIN REACH. WILL CLOSELY MONITOR THE PATIENT.
--- NOTE | 2022-02-02 19:31 | NUR ---
RN CLOSING NOTE PATIENT IN BED, OBTUNDED. CABLE SWAGER IN THE ROOM. NO S/S OF APPARENT DISTRESS IN 4LPM OF O2 VIA NC SATING AT 97%. TELE MONITOR READING SR WITH 77 BPM AT THIS TIME. NOT EXHIBITING PAIN VIA FLACC AT THIS TIME. PEG NOTED, GLUCERNA RUNNING AT 20 ML/HR. IV ACCESS CAROLA MIDLINE RUNNING 1/2 NS @ 75ML/HR. ALL SAFETY MEASURES IN PLACE, WILL ENDORSE TO INCOMING RN
[2022-02-02 20:00] VITALS: BP 90/60
--- NOTE | 2022-02-02 23:35 | NUR ---
RN NOTES BP 69/[address] NAGY WITH NEW ORDER TO GIVE NS BOLUS 1L X1 DOSE NOW. WILL CONTINUE TO MONITOR. PATIENT BASELIN MENTAL STATUS IS NON VERBAL OPENS EYE.
[2022-02-03] VITALS: BP 90/60
[2022-02-03] MEDS ORDERED: IV NS 0.9% 1,000 ML IV ONE
--- NOTE | 2022-02-03 00:10 | NUR ---
RN NOTES BP 93/62. PATIENT COMFORTABLE IN BED. WILL CONTINUE TO MONITOR THE PATIENT
[2022-02-03] MEDS: IV 1/2NS 1000 ML 1,000 ML IV SCH ×3 (03:47→22:06)
[2022-02-03 04:00] VITALS: BP 100/70
--- NOTE | 2022-02-03 04:00 | NUR ---
RN NOTES BP 100/70, WILL CONTINUE TO MONITOR
[2022-02-03] MEDS: PIPERACILLIN /TAZOBACTAM 3.375 G in IV D5W 50 ML IV SCH ×4 (05:38→23:47)
[2022-02-03] MEDS: VANCOMYCIN 0.75 GM in IV D5W 250 ML IV SCH ×3 (06:30→18:03)
--- NOTE | 2022-02-03 06:52 | NUR ---
RN CLOSING NOTE PATIENT IN BED, OBTUNDED. FOLDER TIER IN THE ROOM. NO S/S OF APPARENT DISTRESS IN 4LPM OF O2 VIA NC SATING AT 97%. TELE MONITOR READING SR WITH 64 BPM AT THIS TIME. NOT EXHIBITING PAIN VIA FLACC AT THIS TIME. PEG NOTED, GLUCERNA RUNNING AT 40 ML/HR. IV ACCESS CAROLA MIDLINE RUNNING 1/2 NS @ 75ML/HR. ALL SAFETY MEASURES IN PLACE, WILL ENDORSE TO INCOMING RN
[2022-02-03 07:28] LABS: CALCIUM, SERUM 8.1 mg/dL (8.5-10.1); CREATININE 0.5 mg/dL (0.6-1.3); POTASSIUM 3.5 mmol/L (3.5-5.1)
--- NOTE | 2022-02-03 07:30 | NUR ---
[facility] 33. Held per level ordered.
--- NOTE | 2022-02-03 07:39 | NUR ---
RN OPENING NOTE PATIENT IN BED, OBTUNDED. COTTON OPENER IN THE ROOM. NO S/S OF APPARENT DISTRESS IN 4LPM OF O2 VIA NC SATING AT 96%. TELE MONITOR READING SR 60'S AT THIS TIME. NOT EXHIBITING PAIN AT THIS TIME. PEG NOTED, GLUCERNA INFUSING AT 40 ML/HR WITH A GOAL OF 50ML/HR. IV ACCESS CAROLA MIDLINE INFUSING 1/2 NS @ 75ML/HR. ALL SAFETY MEASURES IN PLACE, CALL LIGHT WITHIN REACH, HEAD OF BED SLIGHTLY ELEVATED. WILL CONTINUE PLAN OF CARE.
[2022-02-03] MEDS: PANTOPRAZOLE 40 MG/PACK PACK GT SCH (07:57)
[2022-02-03 08:00] VITALS: BP 77/46
[2022-02-03] MEDS: MAGNESIUM OXIDE 400 MG TABLET GT SCH ×2 (09:07→18:08)
[2022-02-03] MEDS: CALCIUM CARB 600MG /VIT D 1 EACH TABLET GT SCH ×2 (09:07→18:08)
[2022-02-03] MEDS: CHOLECALCIFEROL 1,000 UNIT TABLET (VIT D3) GT SCH (09:07)
[2022-02-03] MEDS: ATENOLOL 50 MG TABLET GT SCH (09:08)
[2022-02-03] MEDS: VALPROIC ACID 250 MG/5 ML UDC GT SCH ×2 (09:08→18:05)
[2022-02-03] MEDS: SIMETHICONE SUSP 40 MG/0.6 ML BOTTLE GT SCH ×3 (09:09→18:05)
--- NOTE | 2022-02-03 09:17 | NUR ---
RN NOTES BP 77/46, HR 81. CHARGE NURSE AND MD INFORMED. WAITING FOR ORDERS. WILL CONTINUE TO MONITOR.
--- NOTE | 2022-02-03 09:30 | NUR ---
Atenolol 50mg for 9am held per md order.
[2022-02-03 12:00] VITALS: BP 126/99
[2022-02-03 16:00] VITALS: BP 84/52
--- NOTE | 2022-02-03 19:05 | NUR ---
RN CLOSING NOTE PATIENT IN BED, OBTUNDED. SAXOPHONE ASSEMBLER IN THE ROOM. NO S/S OF APPARENT DISTRESS IN 4LPM OF O2 VIA NC SATING AT 98%. TELE MONITOR READING SR 70'S AT THIS TIME. NOT EXHIBITING PAIN AT THIS TIME. PEG INFUSING GLUCERNA AT 50 ML/HR. IV ACCESS CAROLA MIDLINE INFUSING 1/2 NS @ 75ML/HR. ALL SAFETY MEASURES IN PLACE, CALL LIGHT WITHIN REACH, HEAD OF BED SLIGHTLY ELEVATED. WILL ENDORSE TO NEXT NURSE ON DUTY FOR CONTINUITY OF CARE.
--- NOTE | 2022-02-03 19:10 | NUR ---
RN NOTES RECEIVED REPORT FROM MORNING RN. PATIENT IN BED CAREGIVER AT BEDSIDE. WITH OXYGEN INHALATION AT 4LPM VIA NASAL CANULA SATING 96% NO SOB NO DISTRESS NOTED AT THIS TIME. WITH IV ACCESS AT R UA MIDLINE PATENT ON CONTINUOS IVF 1/2 NS @ 125CC/HR. WITH GT INTACT ON CONTINUOUS GT FEEDING GLUCERNA @ 50 CC/HR TOLERATING WILL. WILL INCREASE BY 10 Q6 HOURS TO REACH 50CC GOAL. WITH NEPHROSTOMY TUBE INTACT DRAINING DARK YELLOW OUTPUT. ALL SAFETY MEASURES IN PLACE AT ALL TIMES. HOB ELEVATED. CALL LIGHT WITHIN REACH. WILL CLOSELY MONITOR THE PATIENT.
[2022-02-03 20:00] VITALS: BP 99/47
[2022-02-03] MEDS: ACETAMINOPHEN 325 MG TABLET PO PRN (23:49)
[2022-02-04] VITALS: BP 115/63
--- NOTE | 2022-02-04 00:03 | NUR ---
RN NOTES PATIENT NOTED CONGESTION UPON AUSCULTATION. DR NAGY INFORMED WITH ORDER TO D/C IVF. WILL CONTINUE TO MONITOR THE PATIENT
[2022-02-04 04:00] VITALS: BP 103/80
[2022-02-04] MEDS: PIPERACILLIN /TAZOBACTAM 3.375 G in IV D5W 50 ML IV SCH ×4 (05:44→23:41)
[2022-02-04] MEDS: GLUCERNA 1.2 1,000 ML BOTTLE NG PRN (06:12)
[2022-02-04] MEDS: VANCOMYCIN 0.75 GM in IV D5W 250 ML IV SCH ×2 (06:22→18:11)
--- NOTE | 2022-02-04 06:59 | NUR ---
RN CLOSING NOTE PATIENT IN BED, OBTUNDED. CERTIFIED MEDICAL DOSIMETRIST IN THE ROOM. NO S/S OF APPARENT DISTRESS IN 4LPM OF O2 VIA NC SATING AT 97%. TELE MONITOR READING SR WITH 64 BPM AT THIS TIME. NOT EXHIBITING PAIN VIA FLACC AT THIS TIME. PEG NOTED, GLUCERNA RUNNING AT 50 ML/HR. IV ACCESS CAROLA MIDLINE PATENT. NEPHROSTOMY TUBE PATENT DRAINING YELLOWISH OUTPUT ALL SAFETY MEASURES IN PLACE, WILL ENDORSE TO INCOMING RN
--- NOTE | 2022-02-04 07:15 | NUR ---
RN OPENING NOTES RECEIVED PATIENT IN BED, OBTUNDED. PRINCIPAL STATISTICAL PROGRAMMER IN THE ROOM. ON 4LPM OF O2 VIA NC, TOLERATING WELL. ON TELE MONITOR READING NSR WITH HR OF 88 AT THIS TIME. NO SOB OR ANY S/SX OF ANY RESPIRATORY DISTRESS NOTED AT THE TIME. PEG NOTED, GLUCERNA INFUSING AT 50 ML/HR. IV ACCESS CAROLA MIDLINE PATENT AND INTACT, FLUSHES WELL. ALL SAFETY MEASURES IN PLACE, BED LOCKED IN LOWEST POSITION WITH SIDE RAILS UP X 2, CALL LIGHT WITHIN REACH, HEAD OF BED ELEVATED. WILL CONTINUE TO MONITOR AND REASSESS PATIENT FOR ANY CHANGES DURING SHIFT.
--- NOTE | 2022-02-04 07:30 | NUR ---
RN OPENING NOTES RECEIVED PATIENT IN BED, OBTUNDED. ASSISTANT LOAN PROCESSOR IN THE ROOM. ON 4LPM OF O2 VIA NC, TOLERATING WELL. ON TELE MONITOR READING NSR WITH HR OF 88 AT THIS TIME. NO SOB OR ANY S/SX OF ANY RESPIRATORY DISTRESS NOTED AT THE TIME. PEG NOTED, GLUCERNA INFUSING AT 50 ML/HR. IV ACCESS CAROLA MIDLINE PATENT AND INTACT, FLUSHES WELL. ALL SAFETY MEASURES IN PLACE, BED LOCKED IN LOWEST POSITION WITH SIDE RAILS UP X 2, CALL LIGHT WITHIN REACH, HEAD OF BED ELEVATED. WILL CONTINUE TO MONITOR AND REASSESS PATIENT FOR ANY CHANGES DURING SHIFT. Addendum: 02/04/22 at 2028 by SKY ESPARZA RN WRONG TIME
[2022-02-04 07:35] LABS: BASOPHILS % (AUTO) 0.3 % (0.0-2.0); EOSINOPHILS % (AUTO) 2.5 % (0.0-6.0); HEMATOCRIT 31 % (33-45); HEMOGLOBIN 9.6 g/dL (11.5-14.8); LYMPHOCYTES # (AUTO) 2.2 K/uL (0.8-4.8); LYMPHOCYTES % (AUTO) 35.6 % (20.0-44.0); MEAN CORPUSCULAR HGB CONC 31 g/dl (31.0-36.0); MEAN CORPUSCULAR VOLUME 102 fL (82-100); MONOCYTES # (AUTO) 0.6 K/uL (0.1-1.30); MONOCYTES % (AUTO) 9.1 % (2.0-12.0); NEUTROPHILS # (AUTO) 3.3 K/uL (1.8-8.9); NEUTROPHILS % (AUTO) 52.5 % (43.0-81.0); PLATELET COUNT (AUTO) 185 K/uL (150-450); RED BLOOD CELL COUNT(AUTO) 3.05 MIL/uL (4.0-5.2); WHITE BLOOD COUNT (AUTO) 6.2 K/uL (4.3-11.0)
[2022-02-04 08:00] VITALS: BP 109/65
[2022-02-04 08:05] LABS: CALCIUM, SERUM 7.9 mg/dL (8.5-10.1); CREATININE 0.4 mg/dL (0.6-1.3); POTASSIUM 3.8 mmol/L (3.5-5.1)
[2022-02-04] MEDS: PANTOPRAZOLE 40 MG/PACK PACK GT SCH (09:16)
[2022-02-04] MEDS: CALCIUM CARB 600MG /VIT D 1 EACH TABLET GT SCH ×2 (09:16→17:01)
[2022-02-04] MEDS: MAGNESIUM OXIDE 400 MG TABLET GT SCH ×2 (09:16→17:01)
[2022-02-04] MEDS: SIMETHICONE SUSP 40 MG/0.6 ML BOTTLE GT SCH ×3 (09:17→17:01)
[2022-02-04] MEDS: CHOLECALCIFEROL 1,000 UNIT TABLET (VIT D3) GT SCH (09:17)
[2022-02-04] MEDS: VALPROIC ACID 250 MG/5 ML UDC GT SCH ×2 (09:17→17:01)
[2022-02-04 12:00] VITALS: BP 99/51
[2022-02-04] MEDS: ACETAMINOPHEN 325 MG TABLET PO PRN (12:21)
[2022-02-04 16:00] VITALS: BP 95/59
--- NOTE | 2022-02-04 18:52 | NUR ---
RN CLOSING NOTES NO SIGNIFICANT CHANGES ON PATIENT CONDITION THROUGHOUT SHIFT. PATIENT IN BED, OBTUNDED. JEWEL DIAMETER GAUGER IN THE ROOM. ON 4LPM OF O2 VIA NC, TOLERATING WELL. NO SOB OR ANY S/SX OF ANY RESPIRATORY DISTRESS NOTED AT THE TIME. PEG NOTED, GLUCERNA INFUSING AT 50 ML/HR. NO RESIDUAL NOTED. IV ACCESS CAROLA MIDLINE PATENT AND INTACT, FLUSHES WELL. ALL DUE MEDS GIVEN ORDERED. KEPT PATIENT CLEAN DRY AND COMFORTABLE. ALL NEEDS ANTICIPATED. ALL SAFETY MEASURES IN PLACE, BED LOCKED IN LOWEST POSITION WITH SIDE RAILS UP X 2, CALL LIGHT WITHIN REACH, HEAD OF BED ELEVATED. WILL ENDORSE TO CHRISTIAN EDUCATION DIRECTOR NURSE FOR CONTINUITY OF CARE.
--- NOTE | 2022-02-04 19:30 | NUR ---
RN OPENING NOTES RECEIVED PATIENT IN BED, OBTUNDED. BARREL RIFLER BROACH IN THE ROOM. ON 4LPM OF O2 VIA NC, TOLERATING WELL. ON TELE MONITOR READING NSR WITH HR OF 88 AT THIS TIME. NO SOB OR ANY S/SX OF ANY DISTRESS NOTED AT THE TIME. PEG NOTED, GLUCERNA INFUSING AT 50 ML/HR. IV ACCESS CAROLA MIDLINE PATENT AND INTACT, FLUSHES WELL. BARREL RIFLER BROACH IS ASKING FOR TYLENOL, IF BP IS GOOD TYLENOL WILL BE GIVEN,ALL SAFETY MEASURES IN PLACE, BED LOCKED IN LOWEST POSITION WITH SIDE RAILS UP X 2, CALL LIGHT WITHIN REACH, HEAD OF BED ELEVATED. WILL CONTINUE TO MONITOR AND REASSESS PATIENT FOR ANY CHANGES DURING SHIFT.
[2022-02-04 20:00] VITALS: BP 133/72
--- NOTE | 2022-02-04 20:08 | NUR ---
RT NOTE RECEIVED PT ON 3LPM NC. SAT 97%. NO RESP DISTRESS. ORDERS FOR Q4 NT SUCTION. WILL SUCTION 2129, NO AUDIBLE SECRETIONS UPON AUSCULTATION. Addendum: 02/04/22 at 2010 by Melvin Pfeiffer RT Amended: Links added.
--- NOTE | 2022-02-04 21:51 | NUR ---
RT NOTE DID NT SUCTION ON PT. SAT 97%, HR 87. THIN BLOODY AND MINIMAL SECRETIONS. NO RESP DISTRESS. WILL NT SUCTION AGAIN AT 2330. PLACED PT BACK ON 3L NC. Addendum: 02/04/22 at 2153 by Melvin Pfeiffer RT Amended: Links added.
--- NOTE | 2022-02-04 23:28 | NUR ---
RT NOTE PT NT SUCTIONED. BLOODY BUT MINIMAL SECRETIONS. NO RESP DISTRESS. PT STABLE POST SUCTION. PLACED BACK ON 3L NC. Addendum: 02/04/22 at 2329 by Melvin Pfeiffer RT Amended: Links added.
[2022-02-05] VITALS: BP 100/55
--- NOTE | 2022-02-05 | NUR ---
RN NOTE PATIENT RECEIVED BED BATH, AND COMPLETE LINEN CHANGE, NEPHROSTOMY NOTED WITH SEROSANGUINEOUS FLUID DRAINING, 275 OUTPUT. WILL CONTINUE TO MONITOR.
[2022-02-05 04:00] VITALS: BP 110/58
[2022-02-05] MEDS: PIPERACILLIN /TAZOBACTAM 3.375 G in IV D5W 50 ML IV SCH (06:12)
--- NOTE | 2022-02-05 06:44 | NUR ---
RN CLOSING NOTE PATIENT IS IN STABLE CONDITION DURING SHIFT, NO DISTRESS OR DISCOMFORT NOTED. ALL NEEDS ATTENDED, KEPT PATIENT CLEAN AND DRY, NEPHROSTOMY BAG DRAINING PINKISH COLOR BUT CLEARING UP.REPOSITIONED EVERY 2 HOURS, SIDE RAILS X2, CALL LIGHT WITHIN REACH, WILL ENDORSE TO DAYSHIFT NURSE.
[2022-02-05] MEDS: VANCOMYCIN 0.75 GM in IV D5W 250 ML IV SCH (06:50)
[2022-02-05 06:57] LABS: CREATININE 0.2 mg/dL (0.6-1.3); MAGNESIUM 1.5 mg/dL (1.8-2.4); PHOSPHORUS 1.6 mg/dL (2.5-4.9)
--- NOTE | 2022-02-05 07:15 | NUR ---
DEPENDENCY PROGRAM DIRECTOR OPENING NOTES: RECEIVED PATIENT IN BED WITH CAREGIVER AT BEDSIDE, AWAKE NON VERBAL, OBTUNDED, ON OXYGEN AT 4L/MIN VIA N/C, NO S/S RESPIRATORY DISTRESS NOTED AT THIS TIME. ON GLUCERNA VIA GTUBE RUNNING AT 50 ML/HR. PATIENT HAS RIGHT UPPER MIDLINE IV ACCESS, FLUSHING WELL, NO S/S OF INFILTRATION. NEPHROSTOMY TUBE NOTED ON PATIENTS RIGHT BACK, INTACT, DRAINING WITH DARK YELLOW ORANGE URINE. HOB ELEVATED, SIDERAILS UP, BED LOCKED IN LOWEST POSITION. WILL CONTINUE TO MONITOR AND REASSESS PATIENT THROUGHOUT SHIFT
[2022-02-05 08:00] VITALS: BP 98/50
[2022-02-05 08:08] LABS: CALCIUM, SERUM 5.9 mg/dL (8.5-10.1)
[2022-02-05 08:09] LABS: POTASSIUM 2.7 mmol/L (3.5-5.1)
[2022-02-05 08:24] LABS: HEMATOCRIT 30 % (33-45); HEMOGLOBIN 9.5 g/dL (11.5-14.8); MEAN CORPUSCULAR HGB CONC 32 g/dl (31.0-36.0); MEAN CORPUSCULAR VOLUME 98 fL (82-100); PLATELET COUNT (AUTO) 223 K/uL (150-450); RED BLOOD CELL COUNT(AUTO) 3.01 MIL/uL (4.0-5.2); WHITE BLOOD COUNT (AUTO) 8.9 K/uL (4.3-11.0)
[2022-02-05] MEDS: CALCIUM CARB 600MG /VIT D 1 EACH TABLET GT SCH ×2 (08:48→17:47)
[2022-02-05] MEDS: PANTOPRAZOLE 40 MG/PACK PACK GT SCH (08:48)
[2022-02-05] MEDS: MAGNESIUM OXIDE 400 MG TABLET GT SCH ×2 (08:49→17:59)
[2022-02-05] MEDS: VALPROIC ACID 250 MG/5 ML UDC GT SCH ×2 (08:49→17:47)
[2022-02-05] MEDS: CHOLECALCIFEROL 1,000 UNIT TABLET (VIT D3) GT SCH (08:49)
[2022-02-05] MEDS: SIMETHICONE SUSP 40 MG/0.6 ML BOTTLE GT SCH ×3 (08:50→17:47)
[2022-02-05] MEDS: POTASSIUM CL. PREMIX PERIPHER. 50 ML IV SCH ×4 (08:50→13:45)
[2022-02-05] MEDS ORDERED: MEROPENEM 500 MG in IV NS 0.9% 50 ML IV SCH (09:00)
[2022-02-05] MEDS ORDERED: POTASSIUM CHLORIDE 20 MEQ TAB.PRT.SR PO ONE (09:00)
[2022-02-05] MEDS ORDERED: MEROPENEM 1 G in IV NS 0.9% 100 ML IV ONE (10:00)
[2022-02-05 10:41] LABS: BAND % (MANUAL) 12 % (0.0-5.0); EOSINOPHILS % (MANUAL) 4 % (0-4); LYMPHOCYTES % (MANUAL) 32 % (16-48); METAMYELOCYTES % 1 % (0-0); MONOCYTES % (MANUAL) 2 % (0-11.0); MYELOCYTES % 1 % (0-0); NEUTROPHILS % (MANUAL) 48 (42-76)
[2022-02-05] MEDS: LINEZOLID 600 MG TABLET PO SCH ×2 (11:01→21:02)
[2022-02-05] MEDS: Magnesium 1GM/D5W 100ML PREMIX 100 ML IV SCH ×2 (11:44→12:48)
[2022-02-05 12:00] VITALS: BP 106/65
[2022-02-05 16:00] VITALS: BP 108/49
[2022-02-05] MEDS ORDERED: NEUTRA PHOS 1 POWD.PACKET NG ONE (16:30)
[2022-02-05] MEDS: GLUCERNA 1.2 1,000 ML BOTTLE NG PRN (16:50)
[2022-02-05] MEDS ORDERED: Z GUARD REMEDY 4 OZ OINT TP PRN (17:30)
[2022-02-05] MEDS: MEROPENEM 1 G in IV NS 0.9% 100 ML IV SCH (18:00)
[2022-02-05] MEDS: MAGNESIUM HYDROXIDE 30 ML UDC GT SCH (18:06)
--- NOTE | 2022-02-05 18:52 | NUR ---
RN CLOSING NOTES NO SIGNIFICANT CHANGES ON PATIENT CONDITION THROUGHOUT SHIFT. PATIENT IN BED, OBTUNDED. FRAME WIRER IN THE ROOM. ON 4LPM OF O2 VIA NC, TOLERATING WELL. NO SOB OR ANY S/SX OF ANY RESPIRATORY DISTRESS NOTED AT THE TIME. PEG NOTED, GLUCERNA INFUSING AT 50 ML/HR. IV ACCESS CAROLA MIDLINE PATENT AND INTACT, FLUSHES WELL. ALL DUE MEDS GIVEN ORDERED. KEPT PATIENT CLEAN DRY AND COMFORTABLE. ALL NEEDS ANTICIPATED. ALL SAFETY MEASURES IN PLACE, BED LOCKED IN LOWEST POSITION WITH SIDE RAILS UP X 2, CALL LIGHT WITHIN REACH, HEAD OF BED ELEVATED. WILL ENDORSE TO UTILIZATION MANAGER NURSE FOR CONTINUITY OF CARE.
--- NOTE | 2022-02-05 19:30 | NUR ---
NIGHT GUARD OPENING NOTE RECEIVED PATIENT AWAKE IN BED NO VERBAL, ON 02 2L VIA NC TOLERATING WELL,HOB ELEVATED, NO S/S OF RESP DISTRESS, NO S/S OF PAIN NOTED , TELE MONITOR READING SR HR 88,CAROLA MIDLINE #18G RUNNING MAXIPIME ATB @33.33ML/HR ,NO S/S OF INFILTRATION NOTED, INTACT AND PATENT, RT SIDE NEPHROSTOMY BAG/DRAIN DRAINING CLEAR YELLOW URINE, GTUBE PRESENT INTACT AND PATENT, NO RESIDUAL NOTED, SIDE RAILS X2, CALL LIGHT WITHIN REACH, WILL CONTINUE TO MONITOR. VSS Addendum: 02/05/22 at 1999 by SKY ESPARZA RN PRIVATE MATERIALS SCIENTIST @ BEDSIDE
[2022-02-05 20:00] VITALS: BP 99/65
--- NOTE | 2022-02-05 20:30 | NUR ---
TAP BUILDER NOTE MORNING NURSE REPORTED THAT THERE WAS A PENDING LAB DRAW FOR A REPEAT K LEVEL FROM A CRITICAL LAB VALUE OF 6.8. MORNING NURSE RECEIVED ORDER FROM AIDE CHAUDHRY OF KAYEXALATE 30G TO BE GIVEN NOW AND ONCE IN THE MORNING IF REDRAW COMES BACK >5.5. AT 2019 SUSANNE ZARATE FROM THE LAB CALLED WITH THE REDRAW A CRITICAL LAB OF 6.89. PER REPAIRER HAIRSPRING DONNIE GIVE KAYEXALATE 30G ONCE. AND DO A REPEAT LAB OF K LEVEL AT 2200. ORDER NOTED AND CARRIED OUT
[2022-02-05] MEDS ORDERED: SODIUM POLYSTYRENE SULFONATE 15 G/60 ML BOTTLE PO ONE (21:00)
[2022-02-05] MEDS ORDERED: SODIUM POLYSTYRENE SULFONATE 15 G/60 ML BOTTLE GT ONE (21:00)
[2022-02-05] MEDS: ACETAMINOPHEN 325 MG TABLET PO PRN (22:52)
[2022-02-06] VITALS: BP 108/57
[2022-02-06] MEDS: MEROPENEM 1 G in IV NS 0.9% 100 ML IV SCH ×3 (02:08→17:55)
[2022-02-06 04:00] VITALS: BP 107/74
[2022-02-06 06:18] LABS: BASOPHILS % (AUTO) 0.3 % (0.0-2.0); HEMATOCRIT 29 % (33-45); HEMOGLOBIN 9.4 g/dL (11.5-14.8); LYMPHOCYTES # (AUTO) 2.3 K/uL (0.8-4.8); LYMPHOCYTES % (AUTO) 29.6 % (20.0-44.0); MEAN CORPUSCULAR HGB CONC 33 g/dl (31.0-36.0); MEAN CORPUSCULAR VOLUME 98 fL (82-100); MONOCYTES # (AUTO) 0.9 K/uL (0.1-1.30); MONOCYTES % (AUTO) 11.1 % (2.0-12.0); NEUTROPHILS # (AUTO) 4.5 K/uL (1.8-8.9); PLATELET COUNT (AUTO) 266 K/uL (150-450); RED BLOOD CELL COUNT(AUTO) 2.92 MIL/uL (4.0-5.2); WHITE BLOOD COUNT (AUTO) 7.8 K/uL (4.3-11.0)
[2022-02-06 06:27] LABS: CALCIUM, SERUM 8.4 mg/dL (8.5-10.1); CREATININE 0.5 mg/dL (0.6-1.3); MAGNESIUM 2.4 mg/dL (1.8-2.4); PHOSPHORUS 2.7 mg/dL (2.5-4.9); POTASSIUM 5.3 mmol/L (3.5-5.1)
--- NOTE | 2022-02-06 06:38 | NUR ---
LEGISLATIVE AIDE CLOSING NOTE PATIENT IS IN STABLE CONDITION DURING SHIFT, NO DISTRESS OR DISCOMFORT NOTED. SINUS RHYTHM 98, CAROLA MIDLINE #18G,GTUBE INFUSING GLUCERNA @50ML/HR WELL, NO RESIDUAL NOTED, FLUSHED GTUBE WITH 250ML Q6H, NEPHROSTOMY BAG DRAINING WELL WITH 475 OUTPUT, NO LEAKAGE NOTED, NO S/S OF INFECTION NOTED ON NEPHRO SITE, ALL NEEDS ATTENDED, KEPT PATIENT CLEAN AND DRY, SIDE RAILS X2, CALL LIGHT WITHIN REACH, WILL ENDORSE TO DAYSHIFT NURSE.
--- NOTE | 2022-02-06 07:30 | NUR ---
RN OPENING NOTE PATIENT IS IN BED, AWAKE, NON VERBAL. ON OXYGEN VIA NASAL CANNULA AT 4L/MIN. SINUS RHYTHM ON TECHNICAL SALES SUPPORT SPECIALIST. BREATHING UNLABORED AND NOT IN ANY FORM OF DISTRESS. WITH G-TUBE INFUSING WITH GLUCERNA AT 50 ML/HR. WITH NEPHROSTOMY TUBE ATTACHED TO BAG DRAINING TO CLEAR YELLOW URINE. WITH RIGHT UPPER ARM MIDLINE INTACT AND PATENT. PATIENT IS ACCOMPANIED BY A CAREGIVER AT BEDSIDE. BED IS LOCKED IN LOWEST POSITION, 3 SIDE RAILS UP, CALL LIGHT WITHIN REACH. WILL CONTINUE TO MONITOR THROUGHOUT SHIFT.
[2022-02-06 08:00] VITALS: BP 137/96
[2022-02-06] MEDS ORDERED: SODIUM POLYSTYRENE SULFONATE 15 G/60 ML BOTTLE PO ONE (08:00)
[2022-02-06] MEDS: MAGNESIUM OXIDE 400 MG TABLET GT SCH ×2 (08:37→16:10)
[2022-02-06] MEDS: LINEZOLID 600 MG TABLET PO SCH ×2 (08:37→21:47)
[2022-02-06] MEDS: VALPROIC ACID 250 MG/5 ML UDC GT SCH ×2 (08:37→16:10)
[2022-02-06] MEDS: CHOLECALCIFEROL 1,000 UNIT TABLET (VIT D3) GT SCH (08:37)
[2022-02-06] MEDS: PANTOPRAZOLE 40 MG/PACK PACK GT SCH (08:37)
[2022-02-06] MEDS: CALCIUM CARB 600MG /VIT D 1 EACH TABLET GT SCH ×2 (08:37→16:10)
[2022-02-06] MEDS: SIMETHICONE SUSP 40 MG/0.6 ML BOTTLE GT SCH ×3 (08:40→16:11)
[2022-02-06 10:15] LABS: BAND % (MANUAL) 5 % (0.0-5.0); BASOPHILS % (MANUAL) 0 % (0.0-2.0); EOSINOPHILS % (MANUAL) 2 % (0-4); LYMPHOCYTES % (MANUAL) 29 % (16-48); MONOCYTES % (MANUAL) 12 % (0-11.0); NEUTROPHILS % (MANUAL) 52 (42-76)
[2022-02-06 12:00] VITALS: BP 115/71
--- NOTE | 2022-02-06 12:00 | NUR ---
RN NOTE GT TUBE FLUSHED WITH 250 CC WATER.
[2022-02-06] MEDS: GLUCERNA 1.2 1,000 ML BOTTLE NG PRN (15:59)
[2022-02-06 16:00] VITALS: BP 124/77
[2022-02-06] MEDS: ACETAMINOPHEN 325 MG TABLET PO PRN ×2 (16:17→22:20)
--- NOTE | 2022-02-06 17:00 | NUR ---
RN NOTE NEPHROSTOMY DRESSING CHANGED. G-TUBE INSERTION SITE CLEANED AND COVERED WITH DRY DRESSING.
--- NOTE | 2022-02-06 18:49 | NUR ---
RN CLOSING NOTE PATIENT REMAINED STABLE THROUGHOUT SHIFT. PATIENT TOLERATES OXYGEN AT 3L/MIN VIA NASAL CANNULA, SATTING AT 96%. RIGHT UPPER ARM MIDLINE INTACT AND PATENT. G-TUBE INTACT AND PATENT WITH INSERTION SITE COVERED WITH DRY DRESSING. NEPHROSTOMY TUBE INTACT AND ATTACHED TO URINE BAG. NEPHROSTOMY SITE COVERED WITH DRY DRESSING. BED IS LOCKED IN LOWEST POSITION, 3 SIDE RAILS UP, CALL LIGHT WITHIN REACH. WILL ENDORSE TO BUSINESS SYSTEMS MANAGER NURSE.
--- NOTE | 2022-02-06 19:30 | NUR ---
PROFESSOR OF PRACTICE OPENING NOTE RECEIVED PATIENT ASLEEP IN BED NO VERBAL, ON 02 3L VIA NC TOLERATING WELL,HOB ELEVATED, NO S/S OF RESP DISTRESS, NO S/S OF PAIN NOTED , TELE MONITOR READING SR HR 88,CAROLA MIDLINE #18G RUNNING MAXIPIME ATB @33.33ML/HR ,NO S/S OF INFILTRATION NOTED, INTACT AND PATENT, RT SIDE NEPHROSTOMY BAG/DRAIN DRAINING CLEAR YELLOW URINE, GTUBE PRESENT INTACT AND PATENT, NO RESIDUAL NOTED, SIDE RAILS X2, CALL LIGHT WITHIN REACH, WILL CONTINUE TO MONITOR. VSS. PRIVATE BEER COIL CLEANER AT BEDSIDE
[2022-02-06 20:00] VITALS: BP 100/59
[2022-02-07] VITALS: BP 110/63
[2022-02-07] MEDS: MEROPENEM 1 G in IV NS 0.9% 100 ML IV SCH ×3 (01:44→18:06)
[2022-02-07 04:00] VITALS: BP 115/77
--- NOTE | 2022-02-07 06:36 | NUR ---
RN NEW GRAD CLOSING NOTE PATIENT IS IN STABLE CONDITION DURING SHIFT, NO DISTRESS OR DISCOMFORT NOTED. SINUS RHYTHM 92, CAROLA MIDLINE #18G,GTUBE INFUSING GLUCERNA @50ML/HR WELL, NO RESIDUAL NOTED, UNCLOGGED GTUBE,FLUSHED GTUBE WITH 250ML Q6H, NEPHROSTOMY BAG DRAINING WELL WITH 325ML OUTPUT, NO LEAKAGE NOTED, NO S/S OF INFECTION NOTED ON NEPHRO SITE, ALL NEEDS ATTENDED, KEPT PATIENT CLEAN AND DRY, SIDE RAILS X2, CALL LIGHT WITHIN REACH, WILL ENDORSE TO DAYSHIFT NURSE.
--- NOTE | 2022-02-07 07:30 | NUR ---
RN OPENING NOTE PATIENT IS IN BED ASLEEP BUT EASILY AROUSABLE, NON VERBAL. WITH O2 VIA NASAL CANNULA AT 3L/MIN. SINUS RHYTHM ON SMELTER CHARGER. WITH G-TUBE INTACT AND PATENT INFUSING WITH GLUCERNA AT 50 ML/HR. WITH NEPHROSTOMY COVERED WITH DRY DRESSING AND ATTACHED TO URINE BAG DRAINING TO CLEAR YELLOW URINE. WITH RIGHT UPPER ARM MIDLINE GAUGE 18 INTACT AND PATENT. BREATHING UNLABORED AND NOT IN ANY FORM OF DISTRESS. WILL CONTINUE TO MONITOR THROUGHOUT SHIFT.
[2022-02-07 08:00] VITALS: BP 114/64
[2022-02-07 08:07] LABS: BASOPHILS % (AUTO) 0.1 % (0.0-2.0); EOSINOPHILS % (AUTO) 2.1 % (0.0-6.0); HEMATOCRIT 30 % (33-45); HEMOGLOBIN 9.6 g/dL (11.5-14.8); LYMPHOCYTES # (AUTO) 2.5 K/uL (0.8-4.8); LYMPHOCYTES % (AUTO) 29.6 % (20.0-44.0); MEAN CORPUSCULAR HGB CONC 33 g/dl (31.0-36.0); MEAN CORPUSCULAR VOLUME 96 fL (82-100); MONOCYTES % (AUTO) 11.8 % (2.0-12.0); NEUTROPHILS # (AUTO) 4.8 K/uL (1.8-8.9); NEUTROPHILS % (AUTO) 56.4 % (43.0-81.0); PLATELET COUNT (AUTO) 395 K/uL (150-450); RED BLOOD CELL COUNT(AUTO) 3.07 MIL/uL (4.0-5.2); WHITE BLOOD COUNT (AUTO) 8.6 K/uL (4.3-11.0)
[2022-02-07 08:20] LABS: CALCIUM, SERUM 8.6 mg/dL (8.5-10.1); CREATININE 0.4 mg/dL (0.6-1.3); POTASSIUM 4.8 mmol/L (3.5-5.1)
[2022-02-07] MEDS: LINEZOLID 600 MG TABLET PO SCH ×2 (08:29→20:53)
[2022-02-07] MEDS: CALCIUM CARB 600MG /VIT D 1 EACH TABLET GT SCH ×2 (08:29→16:29)
[2022-02-07] MEDS: VALPROIC ACID 250 MG/5 ML UDC GT SCH ×2 (08:30→16:29)
[2022-02-07] MEDS: PANTOPRAZOLE 40 MG/PACK PACK GT SCH (08:30)
[2022-02-07] MEDS: CHOLECALCIFEROL 1,000 UNIT TABLET (VIT D3) GT SCH (08:30)
[2022-02-07] MEDS: MAGNESIUM OXIDE 400 MG TABLET GT SCH ×2 (08:30→16:29)
[2022-02-07] MEDS: SIMETHICONE SUSP 40 MG/0.6 ML BOTTLE GT SCH ×3 (08:31→16:29)
[2022-02-07] MEDS ORDERED: MERO500V23 IV (10:26)
[2022-02-07] MEDS ORDERED: LINE600T12 GT (10:26)
[2022-02-07 10:27] LABS: BAND % (MANUAL) 14 % (0.0-5.0); LYMPHOCYTES % (MANUAL) 32 % (16-48); MONOCYTES % (MANUAL) 10 % (0-11.0); NEUTROPHILS % (MANUAL) 40 (42-76)
[2022-02-07 10:28] LABS: EOSINOPHILS % (MANUAL) 2 % (0-4); METAMYELOCYTES % 1 % (0-0); MYELOCYTES % 1 % (0-0)
[2022-02-07 12:00] VITALS: BP 129/66
--- NOTE | 2022-02-07 13:02 | NUR ---
discharge pending r/t insurance reason per CM.
[2022-02-07 16:00] VITALS: BP 99/62
[2022-02-07] MEDS: ACETAMINOPHEN 325 MG TABLET PO PRN (16:38)
--- NOTE | 2022-02-07 18:42 | NUR ---
RN CLOSING NOTE PATIENT IS RESTING COMFORTABLY IN BED AND REMAINED STABLE THROUGHOUT SHIFT. TOLERATES OXYGEN VIA NASAL CANNULA AT 2L/MIN, WITH O2 SAT AT 95%. G TUBE INTACT AND COVERED WITH DRY DRESSING. NEPHROSTOMY INTACT AND COVERED WITH DRY DRESSING. KEPT COMFORTABLE THROUGHOUT SHIFT. REPOSITIONED EVERY 2 HOURS. SUCTIONED ORAL SECRETIONS NEEDED. BED IS LOCKED IN LOWEST POSITION, 3 SIDE RAILS UP, CALL LIGHT WITHIN REACH. WILL ENDORSE TO HAND COOPER HELPER NURSE.
--- NOTE | 2022-02-07 19:40 | NUR ---
RN OPENING NOTES: RECEIVED PATIENT IS IN BED SLEEPING BUT EASILY AROUSABLE, NON VERBAL. ON O2 AT 3L/MIN VIA NASAL CANNULA. IV ACCESS ON CAROLA MIDLINE#18G INTACT AND PATENT. NO S/S OF INFILTRATIONS. G-TUBE WELL TOLERATED WITH GLUCERNA 1.2 AT 50CC/HR. NEPHROSTOMY TUBE COVERED WITH DRY DRESSING AND ATTACHED TO URINE BAG. DRAINING TO CLEAR/YELLOW URINE. NO FACIAL GRIMACING NOTED. NO ACUTE DISTRESS. ALL SAFETY MEASURES IN PLACE. CARE-DATABASE ARCHITECT AT BEDSIDE. BED IN LOWEST POSITION AND LOCKED. SIDE RAILS UP X3, PLACE CALL LIGHT WITH IN REACH. WILL CONTINUE TO MONITOR
[2022-02-07 20:00] VITALS: BP 111/65
[2022-02-07] MEDS: MAGNESIUM HYDROXIDE 30 ML UDC GT SCH (20:53)
[2022-02-07] MEDS: GLUCERNA 1.2 1,000 ML BOTTLE NG PRN (22:28)
[2022-02-08] VITALS: BP 105/67
[2022-02-08] MEDS: MEROPENEM 1 G in IV NS 0.9% 100 ML IV SCH ×3 (01:42→17:55)
[2022-02-08 04:00] VITALS: BP 121/77
--- NOTE | 2022-02-08 06:35 | NUR ---
RN CLOSING NOTES: PATIENT IN BED SLEEPING BUT EASILY AROUSABLE, NON VERBAL. ON O2 AT 3L/MIN VIA NASAL CANNULA. O2 SAT 98%. IV ACCESS ON CAROLA MIDLINE#18G INTACT AND PATENT. NO S/S OF INFILTRATIONS. G-TUBE WELL TOLERATED WITH GLUCERNA 1.2 AT 50CC/HR. NEPHROSTOMY TUBE COVERED WITH DRY DRESSING AND ATTACHED TO URINE BAG. DRAINING TO CLEAR/YELLOW URINE. NO FACIAL GRIMACING NOTED. NO ACUTE DISTRESS. ALL DUE MEDS GIVEN ORDER. ALL SAFETY MEASURES IN PLACE. CARE-SUPERVISOR GATE SERVICES AT BEDSIDE. BED IN LOWEST POSITION AND LOCKED. SIDE RAILS UP X3, PLACE CALL LIGHT WITH IN REACH. WILL ENDORSE TO MORNING SHIFT NURSE.
[2022-02-08 07:29] LABS: BASOPHILS % (AUTO) 0.4 % (0.0-2.0); EOSINOPHILS % (AUTO) 1.8 % (0.0-6.0); HEMATOCRIT 29 % (33-45); HEMOGLOBIN 9.6 g/dL (11.5-14.8); LYMPHOCYTES # (AUTO) 2.4 K/uL (0.8-4.8); LYMPHOCYTES % (AUTO) 27.4 % (20.0-44.0); MEAN CORPUSCULAR HGB CONC 34 g/dl (31.0-36.0); MEAN CORPUSCULAR VOLUME 96 fL (82-100); MONOCYTES # (AUTO) 1.1 K/uL (0.1-1.30); MONOCYTES % (AUTO) 13.3 % (2.0-12.0); NEUTROPHILS # (AUTO) 4.9 K/uL (1.8-8.9); NEUTROPHILS % (AUTO) 57.1 % (43.0-81.0); PLATELET COUNT (AUTO) 480 K/uL (150-450); WHITE BLOOD COUNT (AUTO) 8.6 K/uL (4.3-11.0)
--- NOTE | 2022-02-08 07:39 | NUR ---
RN NOTE PATIENT IS NONVERBAL ON 3L NC O2 SAT 95%. NEPHROSTOMY BAG IN PLACE. GT IN PLACE RUNNING GLUCERNA AT 50ML/HR. CAROLA MIDLINE #[address] DIVISION OPERATIONS MANAGER IS ON THE BED SIDE. BED LOCK ON THE LOWEST POSITION, CALL LIGHT WITHIN REACH. AND 3 SIDE RAILS UP.
[2022-02-08 08:00] VITALS: BP 118/83
[2022-02-08 08:09] LABS: CALCIUM, SERUM 8.3 mg/dL (8.5-10.1); CREATININE 0.5 mg/dL (0.6-1.3)
[2022-02-08] MEDS: VALPROIC ACID 250 MG/5 ML UDC GT SCH ×2 (08:23→16:03)
[2022-02-08] MEDS: MAGNESIUM OXIDE 400 MG TABLET GT SCH ×2 (08:23→16:03)
[2022-02-08] MEDS: PANTOPRAZOLE 40 MG/PACK PACK GT SCH (08:23)
[2022-02-08] MEDS: CHOLECALCIFEROL 1,000 UNIT TABLET (VIT D3) GT SCH (08:24)
[2022-02-08] MEDS: LINEZOLID 600 MG TABLET PO SCH ×2 (08:24→20:29)
[2022-02-08] MEDS: CALCIUM CARB 600MG /VIT D 1 EACH TABLET GT SCH ×2 (08:24→16:03)
[2022-02-08] MEDS: SIMETHICONE SUSP 40 MG/0.6 ML BOTTLE GT SCH ×3 (08:26→16:03)
[2022-02-08 12:00] VITALS: BP 117/57
[2022-02-08] MEDS: ACETAMINOPHEN 325 MG TABLET PO PRN (12:46)
[2022-02-08 16:00] VITALS: BP 114/66
[2022-02-08 16:01] LABS: BAND % (MANUAL) 0 % (0.0-5.0); LYMPHOCYTES % (MANUAL) 30 % (16-48)
[2022-02-08 16:02] LABS: EOSINOPHILS % (MANUAL) 3 % (0-4); MONOCYTES % (MANUAL) 10 % (0-11.0)
[2022-02-08 16:04] LABS: NEUTROPHILS % (MANUAL) 57 (42-76)
[2022-02-08] MEDS: GLUCERNA 1.2 1,000 ML BOTTLE NG PRN (17:55)
--- NOTE | 2022-02-08 19:30 | NUR ---
NICOLE/BULK TANK CAR UNLOADER REPORT RECIEVED FROM AM SHIFT, SEE IV SPREAD SHEET FOR IV'S. ALSO SEE FLOWSHEET FOR ASSESSMENT, PT CURRENTLY HAS MANY SKIN ISSUES WHICH ARE ADDRESSED ON THE FLOWSHEET ALONG WITH THE INTERVENTIONS TO EACH. PT TURNED AND REPOSITIONED FOR COMFORT AND CARE.
[2022-02-08 20:00] VITALS: BP 113/71
--- NOTE | 2022-02-08 20:38 | NUR ---
NICOLE/HEMODIALYSIS RN PT SOUNDS CONGESTED, CALLED WORD PROCESSOR FOR BREATHING TXT AND DEEP SUCTIONED.
[2022-02-09] VITALS: BP 116/70
--- NOTE | 2022-02-09 01:05 | NUR ---
NICOLE/ESTATE TAX EXAMINER CALLED THE [facility] TO GET FREE H2O FLUSHES OF 250ML STOPPED HOWEVER LYNN IMPREGNATING MACHINE OPERATOR SAID HAVE AM SHIFT ADDRESS THIS WITH NEPHROLOGY, EVEN THOUGH NA THIS MORNING IS 132 AND HAS BEEN TRENDING DOWN. ALSO LYNN WAS TOLD PT HAS HX OF DM AND TONIGHT BS IS 260 AND THERE IS NO COVERAGE. [facility] HEAD ALSO LISTENED TO LUNGS AND NO BREATHING TREATMENT ORDERED.
[2022-02-09] MEDS: MEROPENEM 1 G in IV NS 0.9% 100 ML IV SCH ×3 (01:17→18:08)
[2022-02-09] MEDS ORDERED: DEXTROSE 50%-WATER 50 ML DISP.SYRIN IV PRN (01:30)
[2022-02-09] MEDS ORDERED: IV NS 0.9% 250 ML IV PRN (02:00)
[2022-02-09] MEDS: ACETAMINOPHEN 325 MG TABLET PO PRN ×3 (02:28→19:11)
--- NOTE | 2022-02-09 02:30 | NUR ---
NICOLE/PLATE PAINTER APPRENTICE PT'S CAREGIVER NOTICED THAT PT IS GRUNTING, WHICH LOOKS LIKE SHE IS IN PAIN. GAVE TYLENOL VIA G/TUBE FOR THIS.
--- NOTE | 2022-02-09 03:09 | NUR ---
NICOLE/VENEER MATCHER DESK AREA FLOOD IS BEING CLEANED, AT THE SAME TIME LOST COMMUNICATION WITH TELEY BOX IN RM 105. TRIED TO CHANGE BATTERIES HOWEVER UNABLE TO GAIN COMMUNICATION. ICU FILM CASTING OPERATOR IS AWARE.
[2022-02-09 04:00] VITALS: BP 122/60
--- NOTE | 2022-02-09 05:29 | NUR ---
PT NTS LARGE AMT OF FROTHY TINGED SECRETIONS.
[2022-02-09] MEDS: BLOOD SUGAR DIAGNOSTIC 1 EACH STRIP IN SCH ×3 (05:34→18:10)
[2022-02-09] MEDS: INSULIN REGULAR, HUMAN 100 UNIT/ML 3 ML VIAL SQ PRN ×3 (05:35→18:36)
[2022-02-09] MEDS: PANTOPRAZOLE 40 MG/PACK PACK GT SCH (05:36)
--- NOTE | 2022-02-09 06:33 | NUR ---
NICOLE/HAND DEICER ELEMENT WINDER RT CAME TO DEEP SUCTION THIS PT A FEW TIMES THROUGHOUT THE NIGHT.
--- NOTE | 2022-02-09 07:30 | NUR ---
RN OPENING NOTES: RECEIVED PATIENT IS IN BED SLEEPING BUT EASILY AROUSABLE, NON VERBAL. ON O2 AT 3L/MIN VIA NASAL CANNULA. IV ACCESS ON CAROLA MIDLINE#18G INTACT AND PATENT. NO S/S OF INFILTRATIONS. G-TUBE WELL TOLERATED WITH GLUCERNA 1.2 INFUSING AT 50CC/HR. NEPHROSTOMY TUBE COVERED WITH DRY DRESSING AND ATTACHED TO URINE BAG. DRAINING CLEAR/YELLOW URINE. NO FACIAL GRIMACING NOTED. NO ACUTE DISTRESS. ALL SAFETY MEASURES IN PLACE. CARE-SECURITY CLERK AT BEDSIDE. BED IN LOWEST POSITION AND LOCKED. SIDE RAILS UP X3, PLACE CALL LIGHT WITH IN REACH. WILL CONTINUE PLAN OF CARE.
[2022-02-09 08:00] VITALS: BP 114/71
[2022-02-09] MEDS: MAGNESIUM OXIDE 400 MG TABLET GT SCH ×2 (09:32→18:09)
[2022-02-09] MEDS: VALPROIC ACID 250 MG/5 ML UDC GT SCH ×2 (09:32→18:10)
[2022-02-09] MEDS: LINEZOLID 600 MG TABLET PO SCH ×2 (09:33→21:45)
[2022-02-09] MEDS: CALCIUM CARB 600MG /VIT D 1 EACH TABLET GT SCH ×2 (09:33→18:09)
[2022-02-09] MEDS: CHOLECALCIFEROL 1,000 UNIT TABLET (VIT D3) GT SCH (09:33)
[2022-02-09] MEDS: SIMETHICONE SUSP 40 MG/0.6 ML BOTTLE GT SCH ×3 (09:34→18:08)
[2022-02-09 12:00] VITALS: BP 114/71
[2022-02-09 16:00] VITALS: BP 110/70
[2022-02-09] MEDS: MAGNESIUM HYDROXIDE 30 ML UDC GT SCH (18:15)
--- NOTE | 2022-02-09 19:08 | NUR ---
RN CLOSING NOTES: PATIENT IN BED SLEEPING BUT EASILY AROUSABLE, NON VERBAL. ON O2 AT 3L/MIN VIA NASAL CANNULA. O2 SAT 99%. IV ACCESS ON CAROLA MIDLINE#18G INTACT AND PATENT. NO S/S OF INFILTRATIONS. G-TUBE WELL TOLERATED WITH GLUCERNA 1.2 AT 50CC/HR. NEPHROSTOMY TUBE COVERED WITH DRY DRESSING AND ATTACHED TO URINE BAG. DRAINING TO CLEAR/YELLOW URINE. NO ACUTE DISTRESS. ALL DUE MEDS GIVEN ORDER. ALL SAFETY MEASURES IN PLACE. CARE-INCIDENT RESPONSE SPECIALIST AT BEDSIDE. BED IN LOWEST POSITION AND LOCKED. SIDE RAILS UP X3, PLACE CALL LIGHT WITH IN REACH. WILL ENDORSE TO NEXT NURSE ON DUTY FOR CONTINUITY OF CARE.
[2022-02-09] MEDS: GLUCERNA 1.2 1,000 ML BOTTLE NG PRN (19:11)
--- NOTE | 2022-02-09 19:15 | NUR ---
PARTS FACILITATOR OPENING NOTES: RECEIVED PATIENT IN BED, AWAKE, NON VERBAL. NO S/S OF DISTRESS NOTED. NOT IN PAIN. BED ALRM ON. BED IN LOWEST AND LOCKED POSITION. HOB ELEVATED AT ALL TIMES. WITH SISTER AT THE BEDSIDE. HEELS OFFLOADED. WITH O2 AT 3L/MIN. WITH RIGHT SIDE NEPHROSTOMY TUBE WITH CLEAR YELLOW OUTPUT. WITH GT FEEDING RUNNING AT 50ML/HR.
[2022-02-09 20:00] VITALS: BP 97/60
--- NOTE | 2022-02-09 21:33 | NUR ---
REPORTS GIVEN TO MUMTAZ MATHEWS FOR CONTINUITY OF CARE.
--- NOTE | 2022-02-09 21:51 | NUR ---
RN NOTE RECEIVED REPORT FROM MUMTAZ CROOKS.
--- NOTE | 2022-02-09 21:52 | NUR ---
ABSORPTION PLANT OPERATOR OPENING NOTE PT RECEIVED IN BED, NON-VERBAL, OPENS EYES WITH CAREGIVER AT BEDSIDE. NOTED TO BE ON 3L NC WITH NO S/S OF RESP DISTRESS, NON-LABORED AND EQUAL BREATHING, NO COUGH OR SOB NOTED; CURRENT O2SAT 97%. ATTACHED TO EXTERNAL MONITOR, SR WITH HR OF 60. PT NOTED TO HAVE NEPHROSTOMY TUBE ON RIGHT SIDE, DRAINING CLEAR AND YELLOW URINE. GT DRESSING C/D/I WITH GLUCERNA RUNNING AT 50 ML/HR. CAROLA MIDLINE INTACT AND PATENT, FLUSHES EASILY WITH NO RESISTANCE, CURRENTLY HAS NS TKO. BED IN LOWEST POSITION, CALL LIGHT WITHIN REACH, SIDE RAILS UP X3. WILL CONTINUE PLAN OF CARE.
[2022-02-10] VITALS: BP 98/51
[2022-02-10] MEDS: BLOOD SUGAR DIAGNOSTIC 1 EACH STRIP IN SCH ×3 (00:28→12:31)
[2022-02-10] MEDS: INSULIN REGULAR, HUMAN 100 UNIT/ML 3 ML VIAL SQ PRN ×3 (00:32→12:33)
[2022-02-10] MEDS: MEROPENEM 1 G in IV NS 0.9% 100 ML IV SCH ×2 (02:09→10:11)
[2022-02-10] MEDS: ACETAMINOPHEN 325 MG TABLET PO PRN (02:30)
--- NOTE | 2022-02-10 02:31 | NUR ---
RN NOTE PCG REPORTS PT IS "CRYING" AND ASKS IF THERE'S SOMETHING THAT CAN BE GIVEN FOR PAIN. UPON ASSESSMENT, PT IS GRIMACING AND LIMBS ARE NOTED TO BE NOT IN A RELAXED POSITION. PT ADMINISTERED TYLENOL 650 MG; WILL MONITOR FOR EFFECTIVENESS.
[2022-02-10 04:00] VITALS: BP 97/63
--- NOTE | 2022-02-10 06:53 | NUR ---
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 ON 3L NC, O2SAT RANGED FROM 98%-100% WITH NO S/S OF RESP DISTRESS, NO SOB OR COUGH, NON-LABORED AND EQUAL BREATHING. ATTACHED TO EXTERNAL MONITOR SR-ST WITH HR RANGING FROM 94-106. NEPHROSTOMY TUBE INTACT AND PATENT, NO SIGNS OF LEAKING, DRAINING CLEAR AND YELLOW URINE. GT DRESSING C/D/I WITH GLUCERNA RUNNING AT 50 ML/HR, NO RESIDUAL NOTED. CAROLA MIDLINE INTACT AND PATENT, NS TKO AT 10 ML/HR. ALL DUE MEDS ADMINISTERED DURING THE NIGHT. WILL ENDORSE TO DAYSHIFT NURSE TO CONTINUE CARE.
--- NOTE | 2022-02-10 07:30 | NUR ---
RN NOTES PT FOUND SEMI FOWLERS DISPLAYING NO S/S OF DISTRESS, FLACC = 0 AND BREATHING IS EVEN AND UNLABORED ON 3L O2 NC. PT IS NON-VERBAL. NEPHROSTOMY TUBE RESERVOIR BELOW PATIENT DRAINING BY GRAVITY. R UA ML IS PATIENT AND INTACT. HOSPITAL TELEVISION RENTAL CLERK AT BEDSIDE. RN WILL CONTINUE CARE PLAN AND ANTICIPATE NEEDS. SAFETY MEASURES IN PLACE, BED LOCKED AND IN LOWEST POSITION, SIDE RAILS UPX2, CALL LIGHT WITHIN REACH, BED ALARM ARMED.
[2022-02-10] MEDS: PANTOPRAZOLE 40 MG/PACK PACK GT SCH (08:07)
[2022-02-10] MEDS: MAGNESIUM OXIDE 400 MG TABLET GT SCH (08:08)
[2022-02-10] MEDS: LINEZOLID 600 MG TABLET PO SCH (08:08)
[2022-02-10] MEDS: SIMETHICONE SUSP 40 MG/0.6 ML BOTTLE GT SCH ×2 (08:08→13:55)
[2022-02-10] MEDS: CALCIUM CARB 600MG /VIT D 1 EACH TABLET GT SCH (08:08)
[2022-02-10] MEDS: CHOLECALCIFEROL 1,000 UNIT TABLET (VIT D3) GT SCH (08:08)
[2022-02-10] MEDS: VALPROIC ACID 250 MG/5 ML UDC GT SCH (08:09)
[2022-02-10 08:53] VITALS: BP 96/70
--- NOTE | 2022-02-10 13:40 | NUR ---
REPORT RN CALLED AND GAVE REPORT TO [facility]. ALL QUESTIONS ANSWERED.
--- NOTE | 2022-02-10 14:35 | NUR ---
DISCHARGE PT DISCHARGED TO FACILITY UNDER CARE OF [facility]LS [facility] 260. REPORT GIVEN TO ATTENDING EMT, ALL QUESTIONS ANSWERED. R UA ML LEFT IN PER INSTRUCTION. VSS. PT REMAINS OBTUNDED, NON VERBAL. PT IS BREATHING EVEN AND UNLABORED ON 3L O2 NC. FLACC = 0. PT HAD NO BELONGINGS. PT DISCHARGED IN STABLE CONDITION.
== END 2022-02-10 14:28 | DRG 720 ==
LOC: ER 16:17 → TELE1 21:08
PROVIDERS: ADMIT Internal Medicine; ATTEND Internal Medicine
PROC: 05H933Z Insertion of Infusion Device into Right Brachial Vein, Percutaneous Approach (ICD-10-PCS; principal; 2022-02-02)
DX: A41.9 Sepsis, unspecified organism (principal); J96.01 Acute respiratory failure with hypoxia; N17.0 Acute kidney failure with tubular necrosis; J69.0 Pneumonitis due to inhalation of food and vomit; G93.41 Metabolic encephalopathy; E43 Unspecified severe protein-calorie malnutrition; J15.6 Pneumonia due to other Gram-negative bacteria; D68.59 Other primary thrombophilia; E86.0 Dehydration; G80.9 Cerebral palsy, unspecified; G40.909 Epilepsy, unspecified, not intractable, without status epilepticus; N39.0 Urinary tract infection, site not specified; Z20.822 Contact with and (suspected) exposure to COVID-19; Z74.01 Bed confinement status; I10 Essential (primary) hypertension; E11.9 Type 2 diabetes mellitus without complications; M41.9 Scoliosis, unspecified; Z79.4 Long term (current) use of insulin; Z79.84 Long term (current) use of oral hypoglycemic drugs; Z79.899 Other long term (current) drug therapy; Y95 Nosocomial condition; Z93.1 Gastrostomy status; R13.10 Dysphagia, unspecified; Z83.3 Family history of diabetes mellitus; Z82.49 Family history of ischemic heart disease and other diseases of the circulatory system; R62.50 Unspecified lack of expected normal physiological development in childhood; E86.1 Hypovolemia; E87.1 Hypo-osmolality and hyponatremia; Z74.09 Other reduced mobility; E88.09 Other disorders of plasma-protein metabolism, not elsewhere classified; E87.6 Hypokalemia; D53.9 Nutritional anemia, unspecified; Z16.12 Extended spectrum beta lactamase (ESBL) resistance; B96.1 Klebsiella pneumoniae [K. pneumoniae] as the cause of diseases classified elsewhere; B95.2 Enterococcus as the cause of diseases classified elsewhere; E87.0 Hyperosmolality and hypernatremia
CPT/HCPCS: 31720; 36415; 71045-TC; 80048-TC; 80076-TC; 80202-TC; 81001; 82962-TC; 83605-TC; 83735-TC; 83880; 84100-TC; 84132-TC; 84484-TC; 85025-TC; 85730-TC; 87040-TC; 87081-TC; 87086-TC; 87186-TC; 94799-TC; A6253; A6403; C9803; G0378; J1815; J2185; J2543; J3370; J3475; J3480; J3490; J7030; J7040; J7050; J7060

== ENCOUNTER 2022-02-20 15:08 | Inpatient (IN) | payer MEDICAID ==
[~2022-02-20] VITALS: Ht 152.4 cm; Wt 48.5 kg
[~2022-02-20 15:08] MED LIST changes: -ACET650S26 GT; -ALLA266C2 TP; -BISA10SU11 RC; -CALA177L16 TP; -DIPH1TAB GT; +EMPA10TA GT; -GUAI100S11 GT; +LINE600T12 GT; +MERO500V23 IV; -NUT.237L28 GT; +NUT.237L31 GT
--- NOTE | 2022-02-20 15:10 | NUR ---
EVAN [facility] FROM SNF FOR ALTERED MENTATION "NOT TRACKING" RECENTLY DISCHARGED FOR SEPSIS. PT HAS A G TUBE AND UROSTOMY IN PLACE. NON VERBAL. ATTACHED TO MONITOR. AWAITING MD HAGAN.
[2022-02-20] MEDS ORDERED: ALLA266C2 TP (15:40)
[2022-02-20] MEDS ORDERED: NUT.250L18 GT (15:40)
[2022-02-20] MEDS ORDERED: VALP250S4 GT (15:40)
[2022-02-20] MEDS ORDERED: ACET650S26 GT (15:40)
[2022-02-20] MEDS ORDERED: LACT1CAP71 GT (15:40)
[2022-02-20] MEDS ORDERED: ONDA4TAB11 GT (15:40)
[2022-02-20] MEDS ORDERED: BISA10SU11 RC (15:40)
[2022-02-20] MEDS ORDERED: ALBU2.5V38 IH (15:40)
[2022-02-20] MEDS ORDERED: GUAI118S76 GT (15:40)
[2022-02-20] MEDS ORDERED: LOPE1LIQ56 GT (15:40)
[2022-02-20] MEDS ORDERED: IBUP-2383 GT (15:40)
[2022-02-20] MEDS ORDERED: CALA177L16 TP (15:40)
[2022-02-20] MEDS ORDERED: DIPH1TAB GT (15:40)
[2022-02-20 16:04] LABS: BASOPHILS % (AUTO) 0.6 % (0.0-2.0); HEMATOCRIT 32 % (33-45); HEMOGLOBIN 10.2 g/dL (11.5-14.8); LYMPHOCYTES # (AUTO) 3.3 K/uL (0.8-4.8); LYMPHOCYTES % (AUTO) 51.5 % (20.0-44.0); MEAN CORPUSCULAR HGB CONC 32 g/dl (31.0-36.0); MEAN CORPUSCULAR VOLUME 96 fL (82-100); MONOCYTES # (AUTO) 0.5 K/uL (0.1-1.30); MONOCYTES % (AUTO) 7.5 % (2.0-12.0); NEUTROPHILS # (AUTO) 2.1 K/uL (1.8-8.9); NEUTROPHILS % (AUTO) 33.4 % (43.0-81.0); PLATELET COUNT (AUTO) 447 K/uL (150-450); RED BLOOD CELL COUNT(AUTO) 3.29 MIL/uL (4.0-5.2); WHITE BLOOD COUNT (AUTO) 6.4 K/uL (4.3-11.0)
--- NOTE | 2022-02-20 16:06 | NUR ---
PT TAKEN TO CT VIA [facility]
--- NOTE | 2022-02-20 16:07 | NUR ---
Transported to [place] via [facility].
--- NOTE | 2022-02-20 16:08 | NUR ---
MOVE PACKET SUBMITTED.
[2022-02-20 16:22] LABS: BILIRUBIN,URINE NEGATIVE (NEGATIVE); COLOR,URINE YELLOW (YELLOW); LEUKOCYTE ESTERASE ,URINE SMALL (NEGATIVE); NITRITE, URINE NEGATIVE (NEGATIVE); PROTEIN,URINE 100 mg/dl (NEGATIVE); UGLUCOSE >=1000 mg/dL (NEGATIVE); UROBILINOGEN,URINE 0.2 EU/dL (0.2)
[2022-02-20 16:30] LABS: ALANINE AMINOTRANSFERASE 11 U/L (12-78); ALBUMIN 2.3 g/dL (3.4-5.0); ALKALINE PHOSPHATASE 124 U/L (46-116); ASPARTATE AMINOTRANSFERASE 29 U/L (15-37); BILIRUBIN,TOTAL 0.3 mg/dL (0.2-1.0); CALCIUM, SERUM 9.2 mg/dL (8.5-10.1); CARBON DIOXIDE 29 mmol/L (21-32); CHLORIDE 99 mmol/L (98-107); CREATININE 0.4 mg/dL (0.6-1.3); GLUCOSE 123 mg/dL (74-106); SODIUM SERUM 133 mmol/L (136-145); TOTAL PROTEIN, SERUM 7.5 g/dL (6.4-8.2); UREA NITROGEN, BLOOD 32 mg/dL (7-18)
[2022-02-20] MEDS ORDERED: CEFTRIAXONE 1GM BAG (ER ONLY) 50 ML IV ONE ×2 (16:33→16:40)
[2022-02-20 16:50] LABS: BACTERIA,URINE Many /HPF (None Seen); RBC,URINE TOO NUMEROUS TO COUN /HPF (0-2); SQUAMOUS EPITHELIAL CELL,UR Few /HPF (None Seen); WBC,URINE TOO NUMEROUS TO COUN /HPF (0-3)
--- NOTE | 2022-02-20 16:59 | NUR ---
epi c paged. awaiting hospitalist call back.
[2022-02-20] MEDS ORDERED: CEFTRIAXONE 1GM BAG (ER ONLY) 1 GM/50 ML PIGGYBACK IV ONE (17:00)
[2022-02-20] MEDS ORDERED: IV NS 0.9% 1,000 ML BAG IV ONE (17:00)
--- NOTE | 2022-02-20 17:28 | NUR ---
Patient will go to Rm 109
[2022-02-20] MEDS ORDERED: ONDANSETRON 4 MG TAB.RAPDIS GT PRN (17:30)
[2022-02-20] MEDS ORDERED: IV NS 0.9% 1,000 ML IV ONE (17:30)
[2022-02-20] MEDS ORDERED: ONDANSETRON HCL/PF 4 MG/2 ML VIAL IVP PRN (17:30)
[2022-02-20] MEDS ORDERED: ALBUTEROL FS 2.5 MG/3 ML VIAL.NEB IH PRN (17:30)
[2022-02-20] MEDS ORDERED: DIPHENOXYLATE HCL/ATROP SULF 1 UDTAB TABLET GT PRN (17:30)
[2022-02-20] MEDS ORDERED: ACETAMINOPHEN 325 MG TABLET PO PRN (17:30)
[2022-02-20] MEDS ORDERED: DEXTROSE 50%-WATER 50 ML DISP.SYRIN IV PRN (17:30)
--- NOTE | 2022-02-20 17:36 | NUR ---
Report given to MUMTAZ Barfield for WILLIE.
[2022-02-20] MEDS ORDERED: Medication Not On Formulary EA (Empagliflozin (Jardiance) 10 MG) GT SCH (18:00)
[2022-02-20] MEDS ORDERED: Medication Not On Formulary EA (Fenofibrate,Micronized (Fenofibrate) 200 MG) GT SCH (18:00)
--- NOTE | 2022-02-20 19:30 | NUR ---
ELECTRIC CAR OPERATOR OPENING NOTE RECEIVED REPORT FROM MUMTAZ SOLO. PT IN BED AWAKE WITH SISTER AND CAREGIVER ON BED SIDE. PT IS NON VERBAL AND HAS HX OF CEREBRAL PALSY. CURRENTLY ON O2 VIA NC AT 2LPM, TOLERATING WELL SATING AT 94%. TELE MONITOR SHOW SR WITH HR IN 70s. PT HAS GTUBE IN PLACE, FLUSHES WELL. NEPHROSTOMY NOTED ON HER RIGHT LOWER BACK. SHINGLE-LIKE RASHES FOUND ALL OVER PT'S BODY. ALL SAFETY MEASURES IN PLACE: BED LOCKED IN LOW POSITION. CALL LIGHT WITHIN REACH. WILL CONTINUE TO MONITOR THROUGHOUT THE SHIFT.
[2022-02-20 20:00] VITALS: BP 137/62
[2022-02-20] MEDS ORDERED: MEROPENEM 500 MG in IV NS 0.9% 50 ML IV SCH (20:30)
[2022-02-20] MEDS: MEROPENEM 1 G in IV NS 0.9% 100 ML IV SCH (21:14)
[2022-02-20] MEDS: SENNOSIDES 8.6 MG TABLET GT SCH (21:14)
--- NOTE | 2022-02-20 21:35 | NUR ---
RN NOTE ADMINISTERED NORCO TO PT, AFTER SHOWING SIGNS OF FACIAL GRIMACE AND RESTLESSNESS. WILL REASSESS PT AFTER 30 MINUTES.
[2022-02-20] MEDS: HYDROCODONE/APAP 5/325MG TABLET PO PRN (21:50)
--- NOTE | 2022-02-20 23:00 | NUR ---
RN NOTE PT IS SLEEPING. NO SIGNS OF PAIN OR DISCOMFORT NOTED.
[2022-02-21] VITALS (8 sets, daily range): BP systolic 93–140; BP diastolic 64–84
[2022-02-21] MEDS: BLOOD SUGAR DIAGNOSTIC 1 EACH STRIP IN SCH ×5 (00:01→17:39)
[2022-02-21] MEDS: INSULIN REGULAR, HUMAN 100 UNIT/ML 3 ML VIAL SQ PRN ×4 (00:02→17:40)
[2022-02-21] MEDS: MEROPENEM 1 G in IV NS 0.9% 100 ML IV SCH ×3 (04:01→22:17)
[2022-02-21] MEDS: HYDROCODONE/APAP 5/325MG TABLET PO PRN ×2 (04:51→10:36)
--- NOTE | 2022-02-21 05:00 | NUR ---
RN NOTE ADMINISTERED NORCO, PT SHOWS FACIAL GRIMACING AND RESTLESSNESS. WILL REASSESS IN 30 MINUTES.
--- NOTE | 2022-02-21 05:10 | NUR ---
RN NOTE TRIED GIVING PT FOOD VIA MOUTH, TOOK ONE BITE AND REFUSES TO HAVE MORE. PT HAS PEG PLACEMENT BUT NO GT FEEDING. WILL ENDORSE TO AM SHIFT NURSE.
--- NOTE | 2022-02-21 06:16 | NUR ---
CLOTH ROLL WINDER CLOSING NOTE NO SIGNIFICANT CHANGE THROUGHOUT THE SHIFT. PT REMAINED STABLE. ALL DUE MEDS GIVEN. NEEDS ATTENDED TO. WILL ENDORSE TO AM SHIFT NURSE FOR WILLIE.
--- NOTE | 2022-02-21 07:30 | NUR ---
DETECTIVE OPENING NOTE PT IN BED AWAKE WITH SISTER AND CAREGIVER ON BED SIDE.PT IS NON VERBAL AND HAS HX oF CEREBRAL PALSY. CURRENTLY ON O2 VIA NC AT 2LPM, TOLERATING WELL. ON TELE MONITOR. PT HAS GTUBE IN PLACE, FLUSHES WELL. NEPHROSTOMY NOTED ON HER RIGHT LOWER BACK. ALL SAFETY MEASURES IN PLACE: BED LOCKED IN LOW POSITION. CALL LIGHT WITHIN REACH.
[2022-02-21] MEDS ORDERED: PHARMACY TO CHANGE PO MEDS TO GT/NG XX PRN (08:00)
[2022-02-21 08:24] LABS: BASOPHILS % (AUTO) 0.4 % (0.0-2.0); EOSINOPHILS % (AUTO) 5.6 % (0.0-6.0); HEMATOCRIT 33 % (33-45); HEMOGLOBIN 10.5 g/dL (11.5-14.8); LYMPHOCYTES # (AUTO) 2.4 K/uL (0.8-4.8); LYMPHOCYTES % (AUTO) 33.5 % (20.0-44.0); MEAN CORPUSCULAR HGB CONC 32 g/dl (31.0-36.0); MEAN CORPUSCULAR VOLUME 96 fL (82-100); MONOCYTES # (AUTO) 0.5 K/uL (0.1-1.30); MONOCYTES % (AUTO) 7.7 % (2.0-12.0); NEUTROPHILS # (AUTO) 3.7 K/uL (1.8-8.9); NEUTROPHILS % (AUTO) 52.8 % (43.0-81.0); PLATELET COUNT (AUTO) 369 K/uL (150-450); RED BLOOD CELL COUNT(AUTO) 3.43 MIL/uL (4.0-5.2); WHITE BLOOD COUNT (AUTO) 7.1 K/uL (4.3-11.0)
[2022-02-21 08:33] LABS: ALBUMIN 2.3 g/dL (3.4-5.0); BILIRUBIN,TOTAL 0.2 mg/dL (0.2-1.0); CALCIUM, SERUM 9.1 mg/dL (8.5-10.1); CREATININE 0.4 mg/dL (0.6-1.3); MAGNESIUM 2.3 mg/dL (1.8-2.4); PHOSPHORUS 5.4 mg/dL (2.5-4.9); POTASSIUM 4.8 mmol/L (3.5-5.1); TOTAL PROTEIN, SERUM 7.4 g/dL (6.4-8.2)
[2022-02-21] MEDS: ACIDOPHILUS/BULGARICUS 1 EACH TAB.CHEW GT SCH (08:36)
[2022-02-21] MEDS: ZINC SULFATE 220 MG CAPSULE GT SCH (08:36)
[2022-02-21] MEDS: MAGNESIUM OXIDE 400 MG TABLET GT SCH ×2 (08:36→17:18)
[2022-02-21] MEDS: MULTIVITAMINS,THERAGRAN 1 UDTAB TABLET GT SCH (08:36)
[2022-02-21] MEDS: METFORMIN 500 MG TABLET GT SCH ×2 (08:36→17:18)
[2022-02-21] MEDS: VALPROIC ACID 250 MG/5 ML UDC GT SCH ×2 (08:36→17:18)
[2022-02-21] MEDS: CHOLECALCIFEROL 1,000 UNIT TABLET (VIT D3) GT SCH (08:36)
[2022-02-21] MEDS: PANTOPRAZOLE 40 MG VIAL IV SCH (08:36)
[2022-02-21] MEDS: CALCIUM CARB 600MG /VIT D 1 EACH TABLET GT SCH ×2 (08:36→17:18)
[2022-02-21] MEDS: PROSTAT (PYXIS) 30 ML UDC GT SCH ×3 (08:38→17:18)
[2022-02-21 08:43] LABS: THYROID STIMULATING HORMONE 4.267 uIU/mL (0.358-3.74)
[2022-02-21] MEDS ORDERED: ESOMEPRAZOLE MAG TRIHYDRATE 20 MG CAPSULE.DR GT SCH (09:00)
[2022-02-21] MEDS: GLUCERNA 1.2 1,000 ML BOTTLE NG PRN (09:23)
[2022-02-21] MEDS ORDERED: ACETAMINOPHEN 650 MG/20.3 ML UDC GT PRN (10:30)
[2022-02-21] MEDS: ACETAMINOPHEN 650 MG/20.3 ML UDC GT PRN (17:17)
[2022-02-21] MEDS ORDERED: CEFTRIAXONE 1 G in IV D5W 50 ML IV SCH (18:00)
--- NOTE | 2022-02-21 18:41 | NUR ---
SCREEN DOOR MAKER CLOSING NOTE NO SIGNIFICANT CHANGE THROUGHOUT THE SHIFT. PT REMAINED STABLE. ALL DUE MEDS GIVEN. NEEDS ATTENDED TO. WILL ENDORSE TO AM SHIFT NURSE FOR WILLIE.
--- NOTE | 2022-02-21 20:09 | NUR ---
CONVEYOR WEIGHER OPERATOR OPENING NOTE PT RECEIVED IN BED WITH SISTER AND CAREGIVER AT BEDSIDE, NON-VERBAL, OPENS EYES WITH OCCASIONAL GRIMACE AND MOANING. PT ON 2L NC WITH CURRENT O2SAT OF 100%; NO S/S OF RESP DISTRESS, NO SOB OR COUGH, NON-LABORED AND EQUAL BREATHING. ATTACHED TO EXTERNAL MONITOR, SR WITH HR OF 92. PT NOTED TO HAVE NEPHROSTOMY TUBE ON RIGHT SIDE, DRAINING CLEAR AND LYNN URINE; NEPHROSTOMY TUBE INTACT AND PATENT WITH NO SIGNS OF LEAKING. GTD C/D/I WITH GLUCERNA RUNNING AT 45 ML/HR; NO RESIDUAL NOTED. BED IN LOWEST POSITION, CALL LIGHT WITHIN REACH, SIDE RAILS UP X3. WILL CONTINUE TO MONITOR THROUGHOUT THE NIGHT.
[2022-02-21] MEDS: CLOTRIMAZOLE/BETAMETASONE DIPROPIONATE 15 GM TUBE TP SCH (22:16)
[2022-02-21] MEDS: SENNOSIDES 8.6 MG TABLET GT SCH (22:17)
[2022-02-22] VITALS: BP 123/78
[2022-02-22] MEDS: BLOOD SUGAR DIAGNOSTIC 1 EACH STRIP IN SCH ×4 (00:36→17:32)
[2022-02-22] MEDS: INSULIN REGULAR, HUMAN 100 UNIT/ML 3 ML VIAL SQ PRN ×3 (00:48→17:57)
[2022-02-22 04:00] VITALS: BP 130/66
[2022-02-22] MEDS: MEROPENEM 1 G in IV NS 0.9% 100 ML IV SCH ×3 (04:04→20:47)
[2022-02-22] MEDS: ACETAMINOPHEN 650 MG/20.3 ML UDC GT PRN (04:12)
--- NOTE | 2022-02-22 04:12 | NUR ---
RN NOTE PT NOTED TO BE GRIMACING, MOANING, APPEARS TO BE RESTLESS. PT ADMINISTERED TYLENOL 650 MG FOR COMFORT. WILL MONITOR FOR EFFECTIVENESS.
--- NOTE | 2022-02-22 06:43 | NUR ---
REPORTING PROCESS CONSULTANT CLOSING NOTE PT REMAINS IN BED WITH CAREGIVER AT BEDSIDE, NON-VERBAL; GRIMACES OCCASIONALLY WITH SQUIRMING NOTED. REMAINS ON 2L NC, O2SAT RANGED FROM 95%-100% THROUGHOUT THE NIGHT; NO S/S OF RESP DISTRESS, NON-LABORED AND EQUAL BREATHING, NO COUGH OR SOB; OVERALL APPEARS COMFORTABLE. ATTACHED TO EXTERNAL MONITOR, SR-ST WITH HR RANGING FROM 92-103. NEPHROSTOMY INTACT AND PATENT, NO SIGNS OF LEAKING, DRAINING CLEAR AND LYNN URINE. GTD C/D/I WITH GLUCERNA RUNNING AT 45 ML/HR. CHEN MIDLINE INTACT AND PATENT, FLUSHES EASILY WITH NO RESISTANCE, NO FLUIDS/MEDS RUNNING THROUGH IT AT THE MOMENT. ALL DUE MEDS ADMINISTERED DURING THE SHIFT. BED IN LOWEST POSITION, CALL LIGHT WITHIN REACH, SIDE RAILS UP X3. WILL ENDORSE TO DAYSHIFT NURSE TO CONTINUE CARE.
--- NOTE | 2022-02-22 07:20 | NUR ---
NICOLE RN OPENING NOTE RECEIVED PATIENT RESTING COMFORTABLY IN BED, A/O X1-2.ON 3L NC CURRENTLY SATING 96%. NEPHRO CATHETER PATENT AND DRAINING BELOW THE BLADDER. WITH IV ACCESS ON CHEN MIDLINE INTACT, PATENT AND FLUSHING WITH NS. ALL SAFETY FALL PRECAUTIONS IN PLACE BED LOCK ON, BED IN LOWEST POSITION, BED ALARM ON, SIDE RAILS UP, CALL LIGHT WITHIN REACH. WILL CONTINUE TO MONITOR.
[2022-02-22 07:24] LABS: HEMATOCRIT 29 % (33-45); MEAN CORPUSCULAR HGB CONC 33 g/dl (31.0-36.0); MEAN CORPUSCULAR VOLUME 95 fL (82-100); MONOCYTES # (AUTO) 0.6 K/uL (0.1-1.30)
[2022-02-22] MEDS: GLUCERNA 1.2 1,000 ML BOTTLE NG PRN (07:29)
[2022-02-22 07:42] LABS: CALCIUM, SERUM 8.6 mg/dL (8.5-10.1); CREATININE 0.3 mg/dL (0.6-1.3); MAGNESIUM 2.1 mg/dL (1.8-2.4); PHOSPHORUS 4.5 mg/dL (2.5-4.9); POTASSIUM 5.3 mmol/L (3.5-5.1)
[2022-02-22 08:00] VITALS: BP 128/81
[2022-02-22 08:16] LABS: BASOPHILS # (AUTO) 0.1 K/uL (0.0-0.2); EOSINOPHILS % (AUTO) 6.5 % (0.0-6.0); HEMOGLOBIN 9.6 g/dL (11.5-14.8); LYMPHOCYTES # (AUTO) 2.4 K/uL (0.8-4.8); LYMPHOCYTES % (AUTO) 30.1 % (20.0-44.0); MONOCYTES % (AUTO) 7.7 % (2.0-12.0); NEUTROPHILS # (AUTO) 4.4 K/uL (1.8-8.9); PLATELET COUNT (AUTO) 393 K/uL (150-450); RED BLOOD CELL COUNT(AUTO) 3.11 MIL/uL (4.0-5.2)
[2022-02-22 08:22] LABS: NEUTROPHILS % (AUTO) 54.7 % (43.0-81.0)
[2022-02-22] MEDS: ACIDOPHILUS/BULGARICUS 1 EACH TAB.CHEW GT SCH (08:30)
[2022-02-22] MEDS: VALPROIC ACID 250 MG/5 ML UDC GT SCH ×2 (08:30→17:26)
[2022-02-22] MEDS: MULTIVITAMINS,THERAGRAN 1 UDTAB TABLET GT SCH (08:31)
[2022-02-22] MEDS: ZINC SULFATE 220 MG CAPSULE GT SCH (08:31)
[2022-02-22] MEDS: CHOLECALCIFEROL 1,000 UNIT TABLET (VIT D3) GT SCH (08:31)
[2022-02-22] MEDS: METFORMIN 500 MG TABLET GT SCH ×2 (08:31→17:26)
[2022-02-22] MEDS: MAGNESIUM OXIDE 400 MG TABLET GT SCH ×2 (08:31→17:26)
[2022-02-22] MEDS: CLOTRIMAZOLE/BETAMETASONE DIPROPIONATE 15 GM TUBE TP SCH ×2 (08:33→17:27)
[2022-02-22] MEDS: PROSTAT (PYXIS) 30 ML UDC GT SCH ×3 (08:33→17:27)
[2022-02-22] MEDS: CALCIUM CARB 600MG /VIT D 1 EACH TABLET GT SCH ×2 (08:35→17:26)
[2022-02-22] MEDS: PANTOPRAZOLE 40 MG VIAL IV SCH (08:36)
[2022-02-22 08:58] LABS: BASOPHILS % (MANUAL) 0 % (0.0-2.0); EOSINOPHILS % (MANUAL) 6 % (0-4); LYMPHOCYTES % (MANUAL) 32 % (16-48); MONOCYTES % (MANUAL) 10 % (0-11.0); NEUTROPHILS % (MANUAL) 52 (42-76)
[2022-02-22] MEDS: HYDROCODONE/APAP 5/325MG TABLET PO PRN ×2 (09:46→14:46)
[2022-02-22 12:00] VITALS: BP 118/85
[2022-02-22 16:00] VITALS: BP 124/52
--- NOTE | 2022-02-22 18:58 | NUR ---
NICOLE RN CLOSING NOTE RECEIVED PATIENT RESTING COMFORTABLY IN BED, A/O X1-2.ON 3L NC CURRENTLY SATING 96%. NEPHRO CATHETER PATENT AND DRAINING BELOW THE BLADDER. WITH IV ACCESS ON CHEN MIDLINE INTACT, PATENT AND FLUSHING WITH NS. ALL SAFETY FALL PRECAUTIONS IN PLACE BED LOCK ON, BED IN LOWEST POSITION, BED ALARM ON, SIDE RAILS UP, CALL LIGHT WITHIN REACH.ALL VSS. CARE ENDORSED TO NIGHT NURSE.
--- NOTE | 2022-02-22 19:10 | NUR ---
RN NOTES RECEOIVED REPORT FROM MORNING RN. PATIENT IN BED NON VERBAL. WITH OXYGEN INHALATION AT 3LPM VIA NASAL CANULA TOLERATING WELL SATING 98%.NO SOB NO DISTRESS NOTED AT THIS TIME. WITH IV ACCESS AT L UA MIDLINE PATENT FLUSHES WELL. WITH R NEPHROSTOMY TUBE PATENT DRAINING YELLOWISH OUTPUT. WITH GT PATENT FLUSHES WELL ON CONTINUOS GT FEEDING GLUCERNA AT 45CC/HR TOLERATING WELL. SITTER AT BEDSIDE AT ALL TIMES. HOB ELEVATED. CALL LIGHT WITHIN REACH. BED ON LOWEST POSITION AND LOCKED. WILL CLOSELY MONITOR THE PATIENT
[2022-02-22 20:00] VITALS: BP 125/69
[2022-02-22] MEDS: SENNOSIDES 8.6 MG TABLET GT SCH (21:38)
[2022-02-23] VITALS: BP 97/75
[2022-02-23] MEDS: BLOOD SUGAR DIAGNOSTIC 1 EACH STRIP IN SCH ×4 (00:07→17:01)
[2022-02-23] MEDS: INSULIN REGULAR, HUMAN 100 UNIT/ML 3 ML VIAL SQ PRN ×4 (00:10→17:01)
[2022-02-23 04:00] VITALS: BP 95/75
[2022-02-23] MEDS: MEROPENEM 1 G in IV NS 0.9% 100 ML IV SCH ×3 (05:53→21:05)
[2022-02-23] MEDS: GLUCERNA 1.2 1,000 ML BOTTLE NG PRN (06:11)
[2022-02-23 07:24] LABS: BASOPHILS # (AUTO) 0.1 K/uL (0.0-0.2); BASOPHILS % (AUTO) 1.1 % (0.0-2.0); EOSINOPHILS % (AUTO) 8.7 % (0.0-6.0); HEMATOCRIT 30 % (33-45); HEMOGLOBIN 9.7 g/dL (11.5-14.8); LYMPHOCYTES # (AUTO) 2.6 K/uL (0.8-4.8); LYMPHOCYTES % (AUTO) 41.5 % (20.0-44.0); MEAN CORPUSCULAR HGB CONC 33 g/dl (31.0-36.0); MEAN CORPUSCULAR VOLUME 95 fL (82-100); MONOCYTES # (AUTO) 0.5 K/uL (0.1-1.30); MONOCYTES % (AUTO) 8.2 % (2.0-12.0); NEUTROPHILS # (AUTO) 2.5 K/uL (1.8-8.9); NEUTROPHILS % (AUTO) 40.5 % (43.0-81.0); PLATELET COUNT (AUTO) 369 K/uL (150-450); WHITE BLOOD COUNT (AUTO) 6.2 K/uL (4.3-11.0)
--- NOTE | 2022-02-23 07:54 | NUR ---
CYCLE LIAISON NOTES PT IN BED, ASLEEP, RESPIRATIONS REGULAR AND NON LABORED, NO SIGN OF PAIN OR ANY DISCOMFORT, GT FEEDING INFUSING WELL, TOLERATING WELL, KEPT WARM AND COMFORTABLE.
[2022-02-23 08:00] VITALS: BP 137/72
[2022-02-23 08:10] LABS: CALCIUM, SERUM 8.7 mg/dL (8.5-10.1); CREATININE 0.4 mg/dL (0.6-1.3); PHOSPHORUS 3.9 mg/dL (2.5-4.9); POTASSIUM 5.1 mmol/L (3.5-5.1)
[2022-02-23] MEDS: VALPROIC ACID 250 MG/5 ML UDC GT SCH ×2 (08:37→17:00)
[2022-02-23] MEDS: MULTIVITAMINS,THERAGRAN 1 UDTAB TABLET GT SCH (08:38)
[2022-02-23] MEDS: ZINC SULFATE 220 MG CAPSULE GT SCH (08:38)
[2022-02-23] MEDS: CALCIUM CARB 600MG /VIT D 1 EACH TABLET GT SCH ×2 (08:42→16:11)
[2022-02-23] MEDS: METFORMIN 500 MG TABLET GT SCH ×2 (08:42→16:11)
[2022-02-23] MEDS: MAGNESIUM OXIDE 400 MG TABLET GT SCH ×2 (08:42→16:11)
[2022-02-23] MEDS: ACIDOPHILUS/BULGARICUS 1 EACH TAB.CHEW GT SCH (08:42)
[2022-02-23] MEDS: CHOLECALCIFEROL 1,000 UNIT TABLET (VIT D3) GT SCH (08:42)
[2022-02-23] MEDS: PANTOPRAZOLE 40 MG/PACK PACK NG SCH (08:42)
[2022-02-23] MEDS: PROSTAT (PYXIS) 30 ML UDC GT SCH ×3 (08:43→16:19)
[2022-02-23] MEDS: CLOTRIMAZOLE/BETAMETASONE DIPROPIONATE 15 GM TUBE TP SCH ×2 (09:03→16:11)
--- NOTE | 2022-02-23 11:02 | NUR ---
BRANCH BILLING PAYROLL CLERK NOTES PT SEEN BY DR. NUNEZ, DISCHARGE PLAN ONCE FINAL URINE CULTURE IS RESULTED.
--- NOTE | 2022-02-23 11:04 | NUR ---
SUPPLEMENTAL NURSE NOTES FOLLOWED UP FINAL URINE CULTURE RESULTS WITH SENSITIVITY, SPOKE WITH [facility] OF LAB, SAID IT IS NOT YET AVAILABLE AND IT WAS SENT OUT.
[2022-02-23 12:00] VITALS: BP 119/76
[2022-02-23 16:00] VITALS: BP 113/46
[2022-02-23] MEDS: IBUPROFEN SUSP 100 MG/5 ML UDC GT PRN (16:18)
[2022-02-23] MEDS ORDERED: ALENDRONATE 70 MG TABLET PO SCH (18:00)
--- NOTE | 2022-02-23 18:05 | NUR ---
FILAMENT COIL WINDER NOTES PT IN BED, RESTING, NO SIGN OF PAIN OR ANY DISCOMFORT, RESPIRATIONS NORMAL, GT FEEDING INFUSING WELL, TOLERATES WELL, KEPT HOB ELEVATED TO PREVENT ASPIRATION, FINAL URINE CULTURE RESULT RELAYED TO DR. NUNEZ, NEPHROSTOMY TUBE AT RIGHT SIDE OF BACK IN PLACE, DRAINED 300ML OF YELLOW COLORED URINE, PT WILL DISCHARGE BACK TO HER BOARD AND CARE TO CONTINUE 2 MORE DAYS OF IV ATB, PIPE WASHER ARRANGING TRANSFER AT THIS TIME, PT'S ORACLE HRMS DEVELOPER AT BEDSIDE, AWARE OF PLAN OF CARE, PM MEDS GIVEN, ALL NEEDS ATTENDED.
--- NOTE | 2022-02-23 19:30 | NUR ---
TORSION SPRING COILING MACHINE SETTER OPENING NOTE RECEIVED PT IN BED ASLEEP WITH SISTER/CAREGIVER AT BED SIDE. PT IS NON VERBAL AND HAS HX OF CEREBRAL PALSY. PATIENT ON O2 VIA NC AT 3L, TOLERATING WELL SATING AT 94%. TELE MONITOR SHOW SR HR 85. PT HAS A CHEN MIDLINE TKO. PT HAS GTUBE, INTACT AND PATENT, AND RUNNING GLUCERNA AT 45ML/HR,. NEPHROSTOMY NOTED ON HER RIGHT LOWER BACK DRAINING CLEAR YELLOW URINE. PATIENT HAS A RASH ON NECK, AND BLISTER ON ARM NEAR ELBOW/WRIST/ L HIP/ JENNIFFER AREA. ALL SAFETY MEASURES IN PLACE: BED LOCKED IN LOW POSITION. CALL LIGHT WITHIN REACH. WILL CONTINUE TO MONITOR THROUGHOUT THE SHIFT.
[2022-02-23 20:00] VITALS: BP 101/63
[2022-02-23] MEDS: SENNOSIDES 8.6 MG TABLET GT SCH (21:05)
[2022-02-24] VITALS: BP 123/70
[2022-02-24] MEDS: IBUPROFEN SUSP 100 MG/5 ML UDC GT PRN (00:08)
[2022-02-24] MEDS: BLOOD SUGAR DIAGNOSTIC 1 EACH STRIP IN SCH ×4 (00:58→18:49)
[2022-02-24] MEDS: INSULIN REGULAR, HUMAN 100 UNIT/ML 3 ML VIAL SQ PRN ×3 (02:13→12:43)
[2022-02-24 04:00] VITALS: BP 103/57
[2022-02-24] MEDS: MEROPENEM 1 G in IV NS 0.9% 100 ML IV SCH ×3 (05:33→21:23)
--- NOTE | 2022-02-24 05:48 | NUR ---
MS RN NOTE BS 123 NO INSULIN GIVEN
--- NOTE | 2022-02-24 07:07 | NUR ---
VACUUM SPINDLE SANDER CLOSING NOTE PT ASLEEP IN BED, EASILY AROUSABLE, CAREGIVER AT BED SIDE. PT IS NON VERBAL AND HAS HX OF CEREBRAL PALSY. PATIENT ON O2 VIA NC AT 2L, TOLERATING WELL SATING AT >95%. TELE MONITOR SHOW SR HR 88. ALL DUE MEDS GIVEN.ALL SAFETY MEASURES IN PLACE: BED LOCKED IN LOW POSITION. CALL LIGHT WITHIN REACH. WILL ENDORSE TO MORNING SHIFT.
--- NOTE | 2022-02-24 07:30 | NUR ---
caregiver at bedside
--- NOTE | 2022-02-24 07:30 | NUR ---
SEED SALES MANAGER OPENING NOTE PATIENT IS ALERT AND NONVERBAL,OBTUNDED. PATIENT IS CURRENTLY ON SINUS RHYTM. PATIENT HAS NEPHROSTOMY BAG. DRAINING YELLOW/ LYNN COLOR. PATIENT HAS DIAPER. PATIENT HAS BROKEN LEFT FEMUR FRACTURE. PATIENT HAS NECK RASH. PATIENT HAS RIGHT WRIST BLISTER. CAREGIVER AT BEDSIDE. PATIENT HAS GTUBE. GTUBE PATENT. CURRENTLY RUNNING NEPHRO 45ML/HR.PATIENT HAS RIGHT UPPER ARM MIDLINE. INTACT AND PATENT. ALL SAFETY MEASURES IN PLACE. CALL LIGHT WITHIN REACH. BED LOCKED AT LOWEST POSITION. SIDE RAILS X2. WILL CONTINUE TO ASSESS THROUGHOUT SHIFT
[2022-02-24 08:00] VITALS: BP 112/67
[2022-02-24] MEDS: METFORMIN 500 MG TABLET GT SCH ×2 (09:00→18:11)
[2022-02-24] MEDS: ZINC SULFATE 220 MG CAPSULE GT SCH (09:55)
[2022-02-24] MEDS: ACIDOPHILUS/BULGARICUS 1 EACH TAB.CHEW GT SCH (09:55)
[2022-02-24] MEDS: PANTOPRAZOLE 40 MG/PACK PACK NG SCH (09:55)
[2022-02-24] MEDS: CHOLECALCIFEROL 1,000 UNIT TABLET (VIT D3) GT SCH (09:56)
[2022-02-24] MEDS: MAGNESIUM OXIDE 400 MG TABLET GT SCH ×2 (09:56→18:11)
[2022-02-24] MEDS: CALCIUM CARB 600MG /VIT D 1 EACH TABLET GT SCH ×2 (09:56→18:11)
[2022-02-24] MEDS: MULTIVITAMINS,THERAGRAN 1 UDTAB TABLET GT SCH (09:56)
--- NOTE | 2022-02-24 10:00 | NUR ---
sister at bedside Addendum: 02/24/22 at 1956 by CARTER RAMIREZ RN asked to reconcile home med Addendum: 02/24/22 at 1956 by CARTER RAMIREZ RN because of allergic reaction from taking home med. endorsed to forensic investigator
[2022-02-24] MEDS: VALPROIC ACID 250 MG/5 ML UDC GT SCH ×2 (10:17→18:11)
--- NOTE | 2022-02-24 10:30 | NUR ---
called pharmacy to order more elizabeth
[2022-02-24] MEDS: ACETAMINOPHEN 650 MG/20.3 ML UDC GT PRN ×2 (10:34→19:57)
[2022-02-24] MEDS: CLOTRIMAZOLE/BETAMETASONE DIPROPIONATE 15 GM TUBE TP SCH ×2 (10:34→19:03)
[2022-02-24] MEDS: PROSTAT (PYXIS) 30 ML UDC GT SCH ×3 (10:53→18:12)
[2022-02-24 16:00] VITALS: BP 124/81
--- NOTE | 2022-02-24 19:30 | NUR ---
OPERATING ROOM RN CLOSING NOTE PATIENT IS ALERT AND NONVERBAL,OBTUNDED. PATIENT IS CURRENTLY ON SINUS RHYTHM. PATIENT HAS NEPHROSTOMY BAG. DRAINING YELLOW/ LYNN COLOR. PATIENT HAS DIAPER. PATIENT HAS BROKEN LEFT FEMUR FRACTURE. PATIENT HAS NECK RASH. PATIENT HAS RIGHT WRIST BLISTER. CAREGIVER AT BEDSIDE. PATIENT HAS GTUBE. GTUBE PATENT. CURRENTLY RUNNING NEPHRO 45ML/HR.PATIENT HAS RIGHT UPPER ARM MIDLINE. INTACT AND PATENT. ALL SAFETY MEASURES IN PLACE. CALL LIGHT WITHIN REACH. BED LOCKED AT LOWEST POSITION. SIDE RAILS X2.
--- NOTE | 2022-02-24 19:30 | NUR ---
MS RN OPENING NOTE RECEIVED PT IN BED ASLEEP, NO CAREGIVER AT BEDSIDE. PT IS NON VERBAL AND HAS HX OF CEREBRAL PALSY. PATIENT ON O2 VIA NC AT 2L, TOLERATING DESENT, SATING AT 93%, NC WAS RETAPED TO FACE. PT HAS A CHEN MIDLINE TKO. PT HAS GTUBE, INTACT AND PATENT, AND RUNNING GLUCERNA AT 45ML/HR,. NEPHROSTOMY NOTED ON HER RIGHT LOWER BACK DRAINING CLEAR YELLOW URINE. PATIENT HAS A RASH ON NECK, AND BLISTER ON ARM NEAR ELBOW/WRIST/ L HIP/ JENNIFFER AREA. ALL SAFETY MEASURES IN PLACE: BED LOCKED IN LOW POSITION. CALL LIGHT WITHIN REACH. WILL CONTINUE TO MONITOR THROUGHOUT THE SHIFT.
--- NOTE | 2022-02-24 19:57 | NUR ---
MS RN NOTE PATIENT SEEMED TO BE IN PAIN. TYLENOL GIVEN.
[2022-02-24 20:00] VITALS: BP 132/62
[2022-02-24] MEDS: SENNOSIDES 8.6 MG TABLET GT SCH (21:23)
[2022-02-25] MEDS: BLOOD SUGAR DIAGNOSTIC 1 EACH STRIP IN SCH ×5 (00:47→23:32)
[2022-02-25] MEDS: INSULIN REGULAR, HUMAN 100 UNIT/ML 3 ML VIAL SQ PRN ×3 (00:48→23:35)
[2022-02-25 04:00] VITALS: BP 135/86
[2022-02-25] MEDS: MEROPENEM 1 G in IV NS 0.9% 100 ML IV SCH ×3 (05:30→20:15)
--- NOTE | 2022-02-25 06:47 | NUR ---
MS RN CLOSING NOTE PT ASLEEP IN BED, EASILY AROUSABLE, CAREGIVER AT BED SIDE. PT IS NON VERBAL AND HAS HX OF CEREBRAL PALSY. PATIENT ON O2 VIA NC AT 2L, TOLERATING WELL SATING AT >95%. ALL DUE MEDS GIVEN.ALL SAFETY MEASURES IN PLACE: BED LOCKED IN LOW POSITION. CALL LIGHT WITHIN REACH. WILL ENDORSE TO MORNING SHIFT.
--- NOTE | 2022-02-25 07:29 | NUR ---
RN OPEN NOTE RECEIVED PT IN BED ASLEEP WITH SISTER/CAREGIVER AT BED SIDE. PT IS NON VERBAL AND HAS HX OF CEREBRAL PALSY. PATIENT ON O2 VIA NC AT 3L, TOLERATING WELL SATING AT 94%. PT HAS A CHEN MIDLINE TKO. PT HAS GTUBE, INTACT AND PATENT, AND RUNNING GLUCERNA AT 45ML/HR,. PATIENT HAS A RASH ON NECK, AND ARM NEAR ELBOW/WRIST/ L HIP/ JENNIFFER AREA. ALL SAFETY MEASURES IN PLACE: BED LOCKED IN LOW POSITION. CALL LIGHT WITHIN REACH. WILL CONTINUE TO MONITOR THROUGHOUT THE SHIFT.
[2022-02-25] MEDS: PANTOPRAZOLE 40 MG/PACK PACK NG SCH (09:10)
[2022-02-25] MEDS: CALCIUM CARB 600MG /VIT D 1 EACH TABLET GT SCH ×2 (09:10→16:36)
[2022-02-25] MEDS: METFORMIN 500 MG TABLET GT SCH ×2 (09:10→16:36)
[2022-02-25] MEDS: CHOLECALCIFEROL 1,000 UNIT TABLET (VIT D3) GT SCH (09:10)
[2022-02-25] MEDS: MULTIVITAMINS,THERAGRAN 1 UDTAB TABLET GT SCH (09:10)
[2022-02-25] MEDS: ACIDOPHILUS/BULGARICUS 1 EACH TAB.CHEW GT SCH (09:10)
[2022-02-25] MEDS: ZINC SULFATE 220 MG CAPSULE GT SCH (09:10)
[2022-02-25] MEDS: VALPROIC ACID 250 MG/5 ML UDC GT SCH ×2 (09:11→17:47)
[2022-02-25] MEDS: MAGNESIUM OXIDE 400 MG TABLET GT SCH ×2 (09:11→16:36)
[2022-02-25] MEDS: CLOTRIMAZOLE/BETAMETASONE DIPROPIONATE 15 GM TUBE TP SCH ×2 (09:14→16:49)
[2022-02-25] MEDS: PROSTAT (PYXIS) 30 ML UDC GT SCH ×2 (09:17→13:08)
[2022-02-25 12:00] VITALS: BP 138/80
[2022-02-25] MEDS: PROSOURCE / PROSTAT (PYXIS) 30 ML UDC GT SCH (16:47)
[2022-02-25] MEDS ORDERED: PROSTAT (PYXIS) 30 ML UDC GT SCH (17:00)
--- NOTE | 2022-02-25 18:55 | NUR ---
RN CLOSING NOTE PATIENT IS ALERT AND NONVERBAL,OBTUNDED. PATIENT PATIENT HAS NEPHROSTOMY BAG. DRAINING YELLOW/ LYNN COLOR. PATIENT HAS BROKEN LEFT FEMUR FRACTURE. PATIENT HAS NECK RASH. PATIENT HAS RIGHT WRIST BLISTER. CAREGIVER AT BEDSIDE. PATIENT HAS GTUBE CURRENTLY RUNNING NEPHRO 45ML/HR.PATIENT HAS RIGHT UPPER ARM MIDLINE. INTACT ALL SAFETY MEASURES IN PLACE. CALL LIGHT WITHIN REACH. BED LOCKED AT LOWEST POSITION. SIDE RAILS X2.
--- NOTE | 2022-02-25 19:30 | NUR ---
MS RN OPENING NOTE RECEIVED PT IN BED AWAKE, CAREGIVER AT BEDSIDE. PT IS NON VERBAL AND HAS HX OF CEREBRAL PALSY. CURRENTLY ON O2 VIA NC AT 2L, TOLERATING WELL SATING AT 97%. NO S/SX OF ACUTE DISTRESS NOTED AT THIS TIME. IV ACCESS IN CHEN MIDLINE NOTED. PT HAS GTUBE, INTACT AND PATENT, AND RUNNING GLUCERNA AT 45ML/HR,. NEPHROSTOMY NOTED ON HER RIGHT LOWER BACK DRAINING CLEAR YELLOW URINE. ALL SAFETY MEASURES IN PLACE: BED LOCKED IN LOW POSITION. CALL LIGHT WITHIN REACH. WILL CONTINUE TO MONITOR THROUGHOUT THE SHIFT.
[2022-02-25 20:00] VITALS: BP 118/79
[2022-02-25] MEDS: HYDROCODONE/APAP 5/325MG TABLET PO PRN (20:15)
[2022-02-25] MEDS: SENNOSIDES 8.6 MG TABLET GT SCH (21:24)
[2022-02-25] MEDS: GLUCERNA 1.2 1,000 ML BOTTLE NG PRN (21:32)
[2022-02-26 04:00] VITALS: BP 107/75
[2022-02-26] MEDS: MEROPENEM 1 G in IV NS 0.9% 100 ML IV SCH (04:07)
[2022-02-26] MEDS: BLOOD SUGAR DIAGNOSTIC 1 EACH STRIP IN SCH ×4 (05:43→23:46)
[2022-02-26] MEDS: INSULIN REGULAR, HUMAN 100 UNIT/ML 3 ML VIAL SQ PRN ×2 (05:48→23:50)
--- NOTE | 2022-02-26 06:27 | NUR ---
MS RN CLOSING NOTE PT REMAINED STABLE THROUGHOUT THE SHIFT. CAREGIVER PRESENT ON BEDSIDE. ALL DUE MEDS GIVEN. NEEDS ATTENDED TO. KEPT PT CLEAN AND DRY. ALL SAFETY MEASURES IMPLEMENTED: BED LOCKED IN LOW POSITION. BED ALARM ON. CALL LIGHT WITHIN REACH. SR UP X 3. WILL ENDORSE TO AM SHIFT NURSE FOR WILLIE.
[2022-02-26] MEDS: VALPROIC ACID 250 MG/5 ML UDC GT SCH ×2 (08:42→17:48)
[2022-02-26] MEDS: ACIDOPHILUS/BULGARICUS 1 EACH TAB.CHEW GT SCH (08:43)
[2022-02-26] MEDS: METFORMIN 500 MG TABLET GT SCH ×2 (08:43→17:48)
[2022-02-26] MEDS: ZINC SULFATE 220 MG CAPSULE GT SCH (08:43)
[2022-02-26] MEDS: CALCIUM CARB 600MG /VIT D 1 EACH TABLET GT SCH ×2 (08:43→17:48)
[2022-02-26] MEDS: PANTOPRAZOLE 40 MG/PACK PACK NG SCH (08:43)
[2022-02-26] MEDS: CHOLECALCIFEROL 1,000 UNIT TABLET (VIT D3) GT SCH (08:43)
[2022-02-26] MEDS: MAGNESIUM OXIDE 400 MG TABLET GT SCH ×2 (08:43→17:48)
[2022-02-26] MEDS: MULTIVITAMINS,THERAGRAN 1 UDTAB TABLET GT SCH (08:43)
[2022-02-26] MEDS: PROSOURCE / PROSTAT (PYXIS) 30 ML UDC GT SCH ×3 (08:45→17:49)
[2022-02-26] MEDS: CLOTRIMAZOLE/BETAMETASONE DIPROPIONATE 15 GM TUBE TP SCH ×2 (09:34→17:59)
[2022-02-26 12:00] VITALS: BP 117/65
[2022-02-26] MEDS: HYDROCODONE/APAP 5/325MG TABLET PO PRN ×3 (14:20→20:50)
--- NOTE | 2022-02-26 14:20 | NUR ---
patient's sirrwe reported that patient develped pain due to increased moaning, BP checked 115/70 , HR 105 , [place] 5 mh/325 1 tab via G tube provided
--- NOTE | 2022-02-26 19:20 | NUR ---
RN CLOSING NOTE RECEIVED PT IN BED ASLEEP WITH SISTER/CAREGIVER AT BED SIDE. PT IS NON VERBAL AND HAS HX OF CEREBRAL PALSY. PATIENT ON O2 VIA NC AT 2L, TOLERATING WELL SATING AT 94%. PT HAS A CHEN MIDLINE TKO. PT HAS GTUBE, INTACT AND PATENT, AND RUNNING GLUCERNA AT 45ML/HR,. PATIENT HAS A RASH ON NECK, AND ARM NEAR ELBOW/WRIST/ L HIP/ JENNIFFER AREA. ALL SAFETY MEASURES IN PLACE: BED LOCKED IN LOW POSITION. CALL LIGHT WITHIN REACH. WILL CONTINUE TO MONITOR THROUGHOUT THE SHIFT.
--- NOTE | 2022-02-26 19:30 | NUR ---
MS RN OPENING NOTE RECEIVED PT IN BED AWAKE, CAREGIVER AT BEDSIDE. PT IS NON VERBAL AND HAS HX OF CEREBRAL PALSY. CURRENTLY ON O2 VIA NC AT 2L, TOLERATING WELL SATING AT 100%. NO S/SX OF ACUTE DISTRESS NOTED AT THIS TIME. IV ACCESS IN CHEN MIDLINE NOTED. PT HAS GTUBE, INTACT AND PATENT, AND RUNNING GLUCERNA AT 45ML/HR,. NEPHROSTOMY NOTED ON HER RIGHT LOWER BACK DRAINING CLEAR YELLOW URINE. ALL SAFETY MEASURES IN PLACE: BED LOCKED IN LOW POSITION. CALL LIGHT WITHIN REACH. WILL CONTINUE TO MONITOR THROUGHOUT THE SHIFT.
[2022-02-26 20:00] VITALS: BP 137/54
[2022-02-26] MEDS: SENNOSIDES 8.6 MG TABLET GT SCH (21:10)
[2022-02-26] MEDS: NEOMY SULF/BACITRAC ZN/POLY 15 GM TUBE TP SCH (22:00)
[2022-02-27 04:00] VITALS: BP 112/66
[2022-02-27] MEDS: BLOOD SUGAR DIAGNOSTIC 1 EACH STRIP IN SCH ×2 (05:26→11:54)
[2022-02-27] MEDS: INSULIN REGULAR, HUMAN 100 UNIT/ML 3 ML VIAL SQ PRN ×2 (05:27→11:55)
[2022-02-27] MEDS: GLUCERNA 1.2 1,000 ML BOTTLE NG PRN (05:28)
[2022-02-27] MEDS: HYDROCODONE/APAP 5/325MG TABLET PO PRN (07:20)
--- NOTE | 2022-02-27 07:33 | NUR ---
RN OPENING NOTE RECEIVED PT IN BED AWAKE, CAREGIVER AT BEDSIDE. PT IS NON VERBAL AND HAS HX OF CEREBRAL PALSY. CURRENTLY ON O2 VIA NC AT 2L, TOLERATING WELL. IV ACCESS IN CHEN MIDLINE NOTED. PT HAS GTUBE, INTACT AND PATENT, AND RUNNING GLUCERNA AT 45ML/HR,. NEPHROSTOMY NOTED ON HER RIGHT LOWER BACK DRAINING CLEAR YELLOW URINE. ALL SAFETY MEASURES IN PLACE: BED LOCKED IN LOW POSITION. CALL LIGHT WITHIN REACH.
[2022-02-27] MEDS: VALPROIC ACID 250 MG/5 ML UDC GT SCH (08:57)
[2022-02-27] MEDS: CHOLECALCIFEROL 1,000 UNIT TABLET (VIT D3) GT SCH (08:58)
[2022-02-27] MEDS: ACIDOPHILUS/BULGARICUS 1 EACH TAB.CHEW GT SCH (08:58)
[2022-02-27] MEDS: METFORMIN 500 MG TABLET GT SCH (08:58)
[2022-02-27] MEDS: ZINC SULFATE 220 MG CAPSULE GT SCH (08:59)
[2022-02-27] MEDS: PANTOPRAZOLE 40 MG/PACK PACK NG SCH (08:59)
[2022-02-27] MEDS: MULTIVITAMINS,THERAGRAN 1 UDTAB TABLET GT SCH (08:59)
[2022-02-27] MEDS: MAGNESIUM OXIDE 400 MG TABLET GT SCH (08:59)
[2022-02-27] MEDS: CALCIUM CARB 600MG /VIT D 1 EACH TABLET GT SCH (08:59)
[2022-02-27] MEDS: PROSOURCE / PROSTAT (PYXIS) 30 ML UDC GT SCH ×2 (09:00→12:16)
[2022-02-27] MEDS: CLOTRIMAZOLE/BETAMETASONE DIPROPIONATE 15 GM TUBE TP SCH (09:05)
[2022-02-27] MEDS: NEOMY SULF/BACITRAC ZN/POLY 15 GM TUBE TP SCH (09:06)
[2022-02-27 12:00] VITALS: BP 116/76
--- NOTE | 2022-02-27 14:13 | NUR ---
RN NOTE SPOKE TO BIJAL PANDYA, GAVE REPORT TO NURSING FACILITY.
--- NOTE | 2022-02-27 14:14 | NUR ---
RN NOTE GAVE REPORT TO EMT PATIENT TAKE TO FACILITY MACHINE OPERATORS AT BEDSIDE.
== END 2022-02-27 14:33 | DRG 720 ==
LOC: ER 15:10 → TELE 17:08 → UNDOADMIN 17:08 → TELE1 17:40 → MEDSG1 02-24 09:14
PROVIDERS: ADMIT Registered Nurse; ATTEND Internal Medicine
PROC: 05HA33Z Insertion of Infusion Device into Left Brachial Vein, Percutaneous Approach (ICD-10-PCS; principal; 2022-02-22)
DX: A41.9 Sepsis, unspecified organism (principal); J96.90 Respiratory failure, unspecified, unspecified whether with hypoxia or hypercapnia; G92.8 Other toxic encephalopathy; E87.1 Hypo-osmolality and hyponatremia; M84.453A Pathological fracture, unspecified femur, initial encounter for fracture; E11.9 Type 2 diabetes mellitus without complications; E86.0 Dehydration; N39.0 Urinary tract infection, site not specified; G40.909 Epilepsy, unspecified, not intractable, without status epilepticus; Z20.822 Contact with and (suspected) exposure to COVID-19; G80.9 Cerebral palsy, unspecified; I10 Essential (primary) hypertension; M41.9 Scoliosis, unspecified; Z79.51 Long term (current) use of inhaled steroids; Z79.4 Long term (current) use of insulin; Z79.84 Long term (current) use of oral hypoglycemic drugs; Z79.83 Long term (current) use of bisphosphonates; B96.89 Other specified bacterial agents as the cause of diseases classified elsewhere; N20.0 Calculus of kidney; L25.9 Unspecified contact dermatitis, unspecified cause; L30.4 Erythema intertrigo; Z93.6 Other artificial openings of urinary tract status; Z74.09 Other reduced mobility; M81.0 Age-related osteoporosis without current pathological fracture; Z83.3 Family history of diabetes mellitus; Z82.49 Family history of ischemic heart disease and other diseases of the circulatory system; Z87.440 Personal history of urinary (tract) infections; Z87.442 Personal history of urinary calculi; Z93.1 Gastrostomy status; Z86.19 Personal history of other infectious and parasitic diseases; Z16.12 Extended spectrum beta lactamase (ESBL) resistance
CPT/HCPCS: 36415; 70450-TC; 71045-TC; 71250-TC; 80048-TC; 80053-TC; 80076-TC; 80164-TC; 81001; 82962-TC; 83605-TC; 83735-TC; 84100-TC; 84443-TC; 84484-TC; 85025-TC; 85730-TC; 87040-TC; 87081-TC; 87086-TC; 87186-TC; 94799-TC; C9113; C9803; G0378; J0696; J1815; J2185; J7030

== ENCOUNTER 2022-04-20 22:20 | Inpatient (IN) | payer MEDICAID ==
[~2022-04-20] VITALS: Ht 121.9 cm; Wt 56.7 kg
[2022-04-20] MEDS: VANCOMYCIN 1 GM in IV D5W 250 ML IV ONE (01:00)
[~2022-04-20 22:20] MED LIST changes: +ACET650S26 GT; +ALBU2.5V38 IH; +ALLA266C2 TP; +BISA10SU11 RC; +CALA177L16 TP; +DIPH1TAB GT; +GUAI118S76 GT; +IBUP-2383 GT; -LA/L175C GT; +LACT1CAP71 GT; -LINE600T12 GT; +LOPE1LIQ56 GT; -MERO500V23 IV; -NUT.237L31 GT; +NUT.250L18 GT; +ONDA4TAB11 GT
--- NOTE | 2022-04-20 22:40 | NUR ---
TO ER BED 6. [id number]. FEVER 100.7 X 1700. PER SISTER PT HAS BEEN CONGESTED X 2 DAYS. PT AAOX0. CONNECTED TO MONITOR. AWAITING MD HAGAN
[2022-04-20] MEDS ORDERED: VANCOMYCIN 1 GM VIAL ONE (23:22)
[2022-04-20] MEDS ORDERED: CEFEPIME 1 GM VIAL ONE (23:22)
[2022-04-20] MEDS ORDERED: CEFEPIME 1 GM in IV D5W 50 ML IV ONE (23:30)
--- NOTE | 2022-04-20 23:45 | NUR ---
Bon sanchez in [facility] - 04/21/22 at 0105 by SUSY PT RETURNED FROM CT SCAN
--- NOTE | 2022-04-21 00:06 | NUR ---
COVID SWAB COLLECTED AND SENT TO LAB
--- NOTE | 2022-04-21 00:11 | NUR ---
RAPID INFLUENZA SWAB DONE AND SENT TO LAB
--- NOTE | 2022-04-21 00:14 | NUR ---
AT BEDSIDE FOR ULTRASOUND IV INSERTION
--- NOTE | 2022-04-21 00:38 | NUR ---
PT TAKEN FPR CT SCAN VIS ALEXANDER
--- NOTE | 2022-04-21 00:45 | NUR ---
PT RETURNED FROM CT SCAN
[2022-04-21 00:54] LABS: BASOPHILS # (AUTO) 0.1 K/uL (0.0-0.2); BASOPHILS % (AUTO) 0.9 % (0.0-2.0); EOSINOPHILS % (AUTO) 0.5 % (0.0-6.0); HEMATOCRIT 34 % (33-45); HEMOGLOBIN 10.2 g/dL (11.5-14.8); LYMPHOCYTES # (AUTO) 4.7 K/uL (0.8-4.8); MEAN CORPUSCULAR HGB CONC 30 g/dl (31.0-36.0); MEAN CORPUSCULAR VOLUME 101 fL (82-100); MONOCYTES # (AUTO) 1.2 K/uL (0.1-1.30); MONOCYTES % (AUTO) 6.9 % (2.0-12.0); NEUTROPHILS # (AUTO) 11.3 K/uL (1.8-8.9); NEUTROPHILS % (AUTO) 64.7 % (43.0-81.0); PLATELET COUNT (AUTO) 637 K/uL (150-450); RED BLOOD CELL COUNT(AUTO) 3.34 MIL/uL (4.0-5.2); WHITE BLOOD COUNT (AUTO) 17.5 K/uL (4.3-11.0)
[2022-04-21] MEDS: VANCOMYCIN 1 GM in IV D5W 250 ML IV ONE (01:00)
[2022-04-21 01:16] LABS: ALANINE AMINOTRANSFERASE 9 U/L (12-78); ALBUMIN 1.9 g/dL (3.4-5.0); ALKALINE PHOSPHATASE 104 U/L (46-116); ASPARTATE AMINOTRANSFERASE 17 U/L (15-37); BILIRUBIN,DIRECT 0.3 mg/dL (0.0-0.2); BILIRUBIN,TOTAL 0.4 mg/dL (0.2-1.0); TOTAL PROTEIN, SERUM 8.3 g/dL (6.4-8.2)
--- NOTE | 2022-04-21 01:18 | NUR ---
rt paged for suction
[2022-04-21] MEDS ORDERED: ALBUTEROL FS 2.5 MG/3 ML VIAL.NEB IH PRN (02:00)
[2022-04-21] MEDS ORDERED: BISACODYL SUPP (10 MG) 10 MG/SUPP.RECT SUPP.RECT RC PRN (02:00)
[2022-04-21] MEDS ORDERED: IBUPROFEN SUSP 100 MG/5 ML UDC GT PRN (02:00)
[2022-04-21] MEDS ORDERED: CHLORHEXIDINE GLUCONATE 15 ML UDC MM SCH (02:00)
[2022-04-21] MEDS ORDERED: LOPERAMIDE HCL UDC 2 MG/15 ML LIQUID GT PRN (02:00)
[2022-04-21 02:04] LABS: CALCIUM, SERUM 11.3 mg/dL (8.5-10.1); CREATININE 0.9 mg/dL (0.6-1.3); POTASSIUM 3.3 mmol/L (3.5-5.1)
[2022-04-21 02:05] LABS: ALBUMIN 1.9 g/dL (3.4-5.0); BILIRUBIN,DIRECT 0.3 mg/dL (0.0-0.2); BILIRUBIN,TOTAL 0.4 mg/dL (0.2-1.0); TOTAL PROTEIN, SERUM 8.2 g/dL (6.4-8.2)
[2022-04-21] MEDS ORDERED: Z GUARD REMEDY 4 OZ OINT TP PRN (02:30)
[2022-04-21] MEDS ORDERED: DEXTROSE 50%-WATER 50 ML DISP.SYRIN IV PRN (02:30)
[2022-04-21] MEDS ORDERED: IV NS 0.9% 1,000 ML IV PRN (02:30)
[2022-04-21] MEDS ORDERED: ACETAMINOPHEN 325 MG TABLET PO PRN (02:30)
[2022-04-21] MEDS ORDERED: ZOLPIDEM TARTRATE 5 MG TABLET PO PRN (02:30)
[2022-04-21] MEDS ORDERED: MAG HYDROX/AL HYDROX/SIMETH 30 ML UDC PO PRN (02:30)
[2022-04-21] MEDS ORDERED: ONDANSETRON HCL/PF 4 MG/2 ML VIAL IVP PRN (02:30)
[2022-04-21] MEDS ORDERED: MAGNESIUM HYDROXIDE 30 ML UDC PO PRN (02:30)
--- NOTE | 2022-04-21 02:57 | NUR ---
URINE SAMPLE COLLECTED AND SENT TO LAB
[2022-04-21 03:14] LABS: BILIRUBIN,URINE NEGATIVE (NEGATIVE); COLOR,URINE YELLOW (YELLOW); LEUKOCYTE ESTERASE ,URINE TRACE (NEGATIVE); NITRITE, URINE NEGATIVE (NEGATIVE); PROTEIN,URINE 100 mg/dl (NEGATIVE); UGLUCOSE >=1000 mg/dL (NEGATIVE); UROBILINOGEN,URINE 0.2 EU/dL (0.2)
[2022-04-21 03:17] LABS: BACTERIA,URINE Moderate /HPF (None Seen); SQUAMOUS EPITHELIAL CELL,UR Few /HPF (None Seen); WBC,URINE 21-50 /HPF (0-3)
[2022-04-21] MEDS ORDERED: IV NS 0.9% 1,000 ML BAG IV ONE (04:30)
[2022-04-21] MEDS ORDERED: MEROPENEM 1 G in IV NS 0.9% 100 ML IV SCH ×2 (05:00→08:21)
[2022-04-21] MEDS ORDERED: MEROPENEM 1 G VIAL IV ONE (05:19)
[2022-04-21] MEDS: BLOOD SUGAR DIAGNOSTIC 1 EACH STRIP IN SCH ×3 (05:38→17:35)
[2022-04-21] MEDS ORDERED: INSULIN REGULAR, HUMAN 100 UNIT/ML 10 ML VIAL ONE (05:53)
[2022-04-21] MEDS: INSULIN REGULAR, HUMAN 100 UNIT/ML 3 ML VIAL SQ PRN (06:01)
--- NOTE | 2022-04-21 06:02 | NUR ---
POC BG 184. 3UNIT ADMIN TO LLQ PER SLIDING SCALE.
[2022-04-21 06:49] LABS: THYROID STIMULATING HORMONE 2.243 uIU/mL (0.358-3.74)
[2022-04-21] MEDS: MULTIVITAMINS,THERAGRAN 1 UDTAB TABLET GT SCH (09:00)
[2022-04-21] MEDS: HEPARIN SODIUM, PORCINE 5000 UNITS/1 ML VIAL SQ SCH ×2 (09:00→22:03)
[2022-04-21] MEDS: PROSOURCE / PROSTAT (PYXIS) 30 ML UDC GT SCH ×3 (09:00→17:20)
[2022-04-21] MEDS: VALPROIC ACID 250 MG/5 ML UDC GT SCH ×2 (09:00→17:20)
[2022-04-21] MEDS: ATENOLOL 50 MG TABLET GT SCH (09:00)
[2022-04-21] MEDS: MAGNESIUM OXIDE 400 MG TABLET GT SCH ×2 (09:00→17:20)
[2022-04-21] MEDS: PANTOPRAZOLE 40 MG/PACK PACK GT SCH (09:00)
[2022-04-21] MEDS: CHOLECALCIFEROL 1,000 UNIT TABLET (VIT D3) GT SCH (09:00)
[2022-04-21] MEDS ORDERED: VALPROIC ACID 250 MG/5 ML UDC GT SCH (09:00)
[2022-04-21] MEDS ORDERED: PANTOPRAZOLE 40 MG VIAL IV SCH (09:00)
[2022-04-21] MEDS ORDERED: HEPARIN SODIUM, PORCINE 5000 UNITS/1 ML VIAL ONE (09:59)
[2022-04-21] MEDS ORDERED: MAGNESIUM OXIDE 400 MG TABLET ONE (09:59)
[2022-04-21] MEDS ORDERED: VALPROIC ACID 250 MG/5 ML UDC ONE (09:59)
[2022-04-21] MEDS ORDERED: CHOLECALCIFEROL 1,000 UNIT TABLET (VIT D3) ONE (10:00)
[2022-04-21] MEDS ORDERED: MULTIVIT W/MINERALS 1 TAB TABLET ONE (10:00)
[2022-04-21] MEDS ORDERED: PANTOPRAZOLE 40 MG/PACK PACK ONE (10:00)
[2022-04-21] MEDS ORDERED: ATENOLOL 50 MG TABLET ONE (10:00)
--- NOTE | 2022-04-21 11:24 | NUR ---
PT'S ACOUSTIC INTELLIGENCE SPECIALIST REPORTED THAT THE NEPHROSTOMY BAG HAD NOT CHANGED SINCE THE MORNING. DRESSED WS ASSESSED AND FLUSHED TO CHECK FOR PATENTCY. PT IS MAKING URINE IN THE DIAPER.
[2022-04-21] MEDS ORDERED: POTASSIUM CHLORIDE 20 MEQ POWDER PACKET GT ONE (12:00)
--- NOTE | 2022-04-21 12:20 | NUR ---
patients daughter called. left contact number. [phone]
[2022-04-21] MEDS ORDERED: POTASSIUM CHLORIDE 20 MEQ POWDER PACKET ONE ×2 (12:26→12:29)
--- NOTE | 2022-04-21 13:15 | NUR ---
report given to floor nurse. awaiting transfer to floor.
[2022-04-21 13:25] VITALS: BP 110/71
--- NOTE | 2022-04-21 13:25 | NUR ---
MS DROP WIRE ALINER NOTES RECEIVED PATIENT FROM ER ENDORSED BY MUMTAZ HOGUE. PATIENT IS AWAKE AND NONVERBAL. WITH 24/7 CAREGIVER. ON ROOM AIR TOLERATING WELL. NO SOB NOTED. NOT IN DISTRESS. IN NO SIGNS OF PAIN VIA FLACC LEVEL OF PAIN. SKIN ASSESSMENT DONE AND TAKEN PHOTOS, PLACED ON CHART. WITH RIGHT NEPHROSTOMY TUBE DRAINING CLEAR YELLOW URINE. WITH G-TUBE IN PLACED FLUSHING WELL. WITH IV ACCESS AT THE RIGHT FOREARM G20, SALINE LOCKED, PATENT AND INTACT. SAFETY MEASURES IN PLACED. CALL LIGHT WITHIN REACH. BED ON LOWEST LOCKED POSITION, SIDE RAILS UP X2. WILL CONTINUE TO MONITOR.
--- NOTE | 2022-04-21 13:35 | NUR ---
WORKERS COMPENSATION CLAIMS EXAMINER NOTE PATIENT ON TELE MONITOR CURRENTLY READING SINUS RHYTHM AT 82BPM.
[2022-04-21] MEDS: IV 1/2NS 1000 ML 1,000 ML IV PRN (14:23)
[2022-04-21 16:00] VITALS: BP 100/65
[2022-04-21] MEDS: MEROPENEM 1 G in IV NS 0.9% 100 ML IV SCH (17:19)
[2022-04-21] MEDS: CALCIUM CARB 600MG /VIT D 1 EACH TABLET GT SCH (17:20)
[2022-04-21] MEDS ORDERED: Medication Not On Formulary EA (Fenofibrate,Micronized (Fenofibrate) 200 MG) GT SCH (18:00)
--- NOTE | 2022-04-21 18:45 | NUR ---
TRANSACTIONAL ATTORNEY CLOSING NOTES PATIENT RESTING ON BED AND NONVERBAL. WITH 24/7 CAREGIVER. ON ROOM AIR TOLERATING WELL. NO SOB NOTED. NOT IN DISTRESS. IN NO SIGNS OF PAIN VIA FLACC LEVEL OF PAIN. ON TELE MONITOR CURRENTLY READING SINUS RHYTHM AT 80BPM. WITH RIGHT NEPHROSTOMY TUBE DRAINING CLEAR YELLOW URINE. WITH G-TUBE IN PLACED FLUSHING WELL. WITH IV ACCESS AT THE RIGHT FOREARM G20, SALINE LOCKED, PATENT AND INTACT. DUE MEDS GIVEN. SAFETY MEASURES IN PLACED. CALL LIGHT WITHIN REACH. BED ON LOWEST LOCKED POSITION, SIDE RAILS UP X2. WILL ENDORSE TO NEXT SHIFT FOR WILLIE.
[2022-04-21] MEDS ORDERED: GLUCERNA 1.2 1,000 ML BOTTLE NG PRN (19:00)
--- NOTE | 2022-04-21 19:38 | NUR ---
RAMP LEAD OPENING NOTES: RECEIVED PATIENT SLEEP IN BED COMFORTABLY, BED IN LOW POSITION CALL LIGHTS WITHIN REACH, NO COMPLAIN OF PAIN AND DISCOMFORT AT THIS TIME, ON O2 INHALATION AT 3LPM SATURATING WELL, WITH 1:1 SITTER, ON TELE MONITOR- S-88, PATIENT WITH IV LINE AT RFA#20 WITH 1/2 NSS@75ML/HR INFUSING WELL, PATIENT KEPT CLEAN AND DRY ALL NEEDS MET WILL CONTINUE TO MONITOR.
[2022-04-21 20:00] VITALS: BP 101/47
[2022-04-22] VITALS: BP 101/55
[2022-04-22] MEDS: INSULIN REGULAR, HUMAN 100 UNIT/ML 3 ML VIAL SQ PRN ×4 (00:03→17:32)
[2022-04-22] MEDS: BLOOD SUGAR DIAGNOSTIC 1 EACH STRIP IN SCH ×4 (00:07→17:41)
[2022-04-22] MEDS: VANCOMYCIN 0.75 GM in IV D5W 250 ML IV SCH (00:37)
[2022-04-22 04:00] VITALS: BP 95/55
[2022-04-22] MEDS: MEROPENEM 1 G in IV NS 0.9% 100 ML IV SCH ×2 (05:32→17:40)
--- NOTE | 2022-04-22 06:07 | NUR ---
RN NOTES: BLOOD [id number] 4 UNITS REG. INSULIN GIVEN PER SLIDING SCALE
[2022-04-22] MEDS: IV 1/2NS 1000 ML 1,000 ML IV PRN ×2 (06:16→20:56)
[2022-04-22 06:19] LABS: BASOPHILS # (AUTO) 0.1 K/uL (0.0-0.2); BASOPHILS % (AUTO) 0.7 % (0.0-2.0); EOSINOPHILS % (AUTO) 1.1 % (0.0-6.0); HEMATOCRIT 30 % (33-45); HEMOGLOBIN 9.1 g/dL (11.5-14.8); LYMPHOCYTES # (AUTO) 1.9 K/uL (0.8-4.8); LYMPHOCYTES % (AUTO) 15.7 % (20.0-44.0); MEAN CORPUSCULAR HGB CONC 30 g/dl (31.0-36.0); MEAN CORPUSCULAR VOLUME 101 fL (82-100); MONOCYTES % (AUTO) 8.5 % (2.0-12.0); NEUTROPHILS # (AUTO) 8.8 K/uL (1.8-8.9); PLATELET COUNT (AUTO) 456 K/uL (150-450); RED BLOOD CELL COUNT(AUTO) 2.97 MIL/uL (4.0-5.2); WHITE BLOOD COUNT (AUTO) 11.8 K/uL (4.3-11.0)
--- NOTE | 2022-04-22 06:36 | NUR ---
BRAKE OPERATOR CLOSING NOTES: PATIENT SLEEP IN BED COMFORTABLY, BED IN LOW POSITION CALL LIGHTS WITHIN REACH, NO COMPLAIN OF PAIN AND DISCOMFORT AT THIS TIME, NO FACIAL GRIMACING WAS OBSERVED, ON O2 INHALATION AT 3LPM SATURATING WELL, ON TELE [id number], ON NEPHROSTOMY TUBE WITH 600CC OUTPUT ON NPO ON GTUBE FEEDING ON GLUCERNA 1.2@45ML/HR INFUSING WELL, PATIENT WITH IV LINE AT RFA#20 WITH ONGOING 1/2 NSS@75ML/HR INFUSING WELL, REPOSITION Q2H, PATIENT KEPT CLEAN AND DRY ALL NEEDS MET ENDORSE TO INCOMING SHIFT.
[2022-04-22 06:58] LABS: CALCIUM, SERUM 9.7 mg/dL (8.5-10.1); CREATININE 0.6 mg/dL (0.6-1.3); MAGNESIUM 2.4 mg/dL (1.8-2.4); POTASSIUM 3.9 mmol/L (3.5-5.1)
[2022-04-22 08:00] VITALS: BP 90/55
--- NOTE | 2022-04-22 08:08 | NUR ---
RN OPENING NOTE PATIENT RECEIVED IN BED, NON VERBAL, ABLE TO RESPONDS PHYSICAL STIMULI. IN NO ACUTE DISTRESS NOTED. RESPIRATORY EVEN AND UNLABORED ON ROOM AIR. SKIN IS WARM TO TOUCH, KEEP CLEAN/DRY. KEPT ELEVATED HOB FOR ENSURE AIRWAY AND ASPIRATION PRECAUTION, ALSO LOWEST POSITION OF THE BED, S/R UP X 2, BED ALARM IS ON AT ALL THE TIMES. ALL SAFETY PRECAUTION APPLIED. CALL LIGHT WITHIN REACH, WILL CONTINUE TO MONITOR.
[2022-04-22] MEDS: LISINOPRIL (5MG) 5 MG TABLET GT SCH (09:00)
[2022-04-22] MEDS: VALPROIC ACID 250 MG/5 ML UDC GT SCH ×2 (09:31→17:41)
[2022-04-22] MEDS: MULTIVITAMINS,THERAGRAN 1 UDTAB TABLET GT SCH (09:31)
[2022-04-22] MEDS: CHOLECALCIFEROL 1,000 UNIT TABLET (VIT D3) GT SCH (09:31)
[2022-04-22] MEDS: MAGNESIUM OXIDE 400 MG TABLET GT SCH ×2 (09:31→17:37)
[2022-04-22] MEDS: LACTOBACILLUS RHAMNOSUS GG 1 EACH CAP.SPRINK GT SCH (09:32)
[2022-04-22] MEDS: CALCIUM CARB 600MG /VIT D 1 EACH TABLET GT SCH ×2 (09:32→17:39)
[2022-04-22] MEDS: HEPARIN SODIUM, PORCINE 5000 UNITS/1 ML VIAL SQ SCH ×2 (09:35→20:27)
[2022-04-22] MEDS: ATENOLOL 50 MG TABLET GT SCH (09:37)
[2022-04-22] MEDS: PANTOPRAZOLE 40 MG/PACK PACK GT SCH (09:38)
[2022-04-22] MEDS: PROSOURCE / PROSTAT (PYXIS) 30 ML UDC GT SCH ×3 (09:45→17:40)
[2022-04-22] MEDS: ACETAMINOPHEN 650 MG/20.3 ML UDC GT PRN (10:42)
[2022-04-22 16:00] VITALS: BP 90/52
--- NOTE | 2022-04-22 18:28 | NUR ---
RN CLOSING NOTE PATIENT IN BED RESTING, CAREGIVER AT BED SIDE. IN NO ACUTE DISTRESS NOTED. RESPIRATORY EVEN AND UNLABORED IN ROOM AIR. SKIN IS WARM TO TOUCH, KEEP CLEAN/DRY. TUBE FEEDING RUNNING AT 45ML/HR, NO RESIDUAL OBSERVED FROM G TUBE. KEPT LOWEST BED POSITION AND LOCKED. BED ALARM IS ON AT ALL THE TIMES. ALL SAFETY MEASURED IN PLACED. CALL LIGHT WITHIN REACH, WILL ENDORSED TO NEXT SHIFT.
--- NOTE | 2022-04-22 19:33 | NUR ---
RN OPENING NOTES RECEIVED PT IN BED, ASLEEP, ON SIDE, WITH CAREGIVER AT BEDSIDE. NON-VERBAL AND OPENS EYES. ON NC 3LPM AND TOLERATING WELL. NO SOB NOTED. NO S/SX OF RESPIRATORY DISTRESS NOTED. TELE MONITOR DETECTS SINUS RHYTHM WITH RATE OF 90s. IV ACCESS IN RFA #20G RUNNING NS @75 ML/HR. G-TUBE IN PLACE RUNNING GLUCERNA @ 45 ML/HR. SAFETY PRECAUTIONS IN PLACE: BED IN LOWEST, LOCKED POSITION, SIDERAILS UPx2, AND BRAKES ON. TABLE AND CALL LIGHT WITHIN REACH. ALL NEEDS MET AT THIS TIME.
[2022-04-22 20:00] VITALS: BP 109/61
[2022-04-23] VITALS: BP 100/56
[2022-04-23] MEDS: VANCOMYCIN 0.75 GM in IV D5W 250 ML IV SCH ×2 (00:21→14:18)
[2022-04-23] MEDS: BLOOD SUGAR DIAGNOSTIC 1 EACH STRIP IN SCH ×4 (00:22→17:43)
[2022-04-23] MEDS: INSULIN REGULAR, HUMAN 100 UNIT/ML 3 ML VIAL SQ PRN ×4 (00:25→17:44)
[2022-04-23 04:00] VITALS: BP 94/60
[2022-04-23] MEDS: MEROPENEM 1 G in IV NS 0.9% 100 ML IV SCH ×2 (05:14→17:20)
--- NOTE | 2022-04-23 07:21 | NUR ---
RN CLOSING NOTES PT IN BED, ASLEEP, ON SIDE. NON-VERBAL AND OPENS EYES. ON NC 3LPM AND TOLERATING WELL. NO SOB NOTED. NO S/SX OF RESPIRATORY DISTRESS NOTED. TELE MONITOR DETECTS SINUS RHYTHM WITH RATE OF 90s. IV ACCESS IN RFA #20G RUNNING NS @75 ML/HR. G-TUBE IN PLACE RUNNING GLUCERNA @ 45 ML/HR. ALL ORDERS CARRIED OUT. ALL NEEDS MET. PT KEPT CLEAN AND DRY. SAFETY PRECAUTIONS IN PLACE: BED IN LOWEST, LOCKED POSITION, SIDERAILS UPx2, AND BRAKES ON. TABLE AND CALL LIGHT WITHIN REACH. WILL ENDORSE TO ONCOMING SHIFT FOR WILLIE.
[2022-04-23 08:00] VITALS: BP 93/59
--- NOTE | 2022-04-23 08:02 | NUR ---
RN OPENING NOTE PATIENT AWAKE IN BED RESTING. NON-VERBAL. NO S/S OF PAIN NOTED AT THIS TIME. ON 2L OXYGEN VIA NC, NO DISTRESS OR SHORTNESS OF BREATH NOTED. IV ACCESS RFA #20G INTACT, PATENT AND FLUSHING WELL. PATIENT WITH EXTERNAL ENGRAVER LETTER WITH CURRENT READING OF SR AND HR OF 90, NO CARDIAC DISTRESS NOTED. FALL AND SAFETY MEASURES IN PLACE, BED ALARM ON, BED IN LOW AND LOCK POSITION, CALL LIGHT AND TABLE WITHIN EASY REACH, SIDE RAILS UP X2. WILL CONTINUE TO MONITOR.
[2022-04-23 08:46] LABS: BASOPHILS % (AUTO) 0.5 % (0.0-2.0); EOSINOPHILS % (AUTO) 2.4 % (0.0-6.0); HEMATOCRIT 30 % (33-45); HEMOGLOBIN 9.4 g/dL (11.5-14.8); LYMPHOCYTES # (AUTO) 2.5 K/uL (0.8-4.8); LYMPHOCYTES % (AUTO) 30.1 % (20.0-44.0); MEAN CORPUSCULAR HGB CONC 31 g/dl (31.0-36.0); MEAN CORPUSCULAR VOLUME 99 fL (82-100); MONOCYTES % (AUTO) 11.9 % (2.0-12.0); NEUTROPHILS # (AUTO) 4.6 K/uL (1.8-8.9); NEUTROPHILS % (AUTO) 55.1 % (43.0-81.0); PLATELET COUNT (AUTO) 443 K/uL (150-450); RED BLOOD CELL COUNT(AUTO) 3.05 MIL/uL (4.0-5.2); WHITE BLOOD COUNT (AUTO) 8.3 K/uL (4.3-11.0)
[2022-04-23 08:57] LABS: CALCIUM, SERUM 8.9 mg/dL (8.5-10.1); CREATININE 0.5 mg/dL (0.6-1.3); MAGNESIUM 2.1 mg/dL (1.8-2.4); PHOSPHORUS 2.6 mg/dL (2.5-4.9); POTASSIUM 3.8 mmol/L (3.5-5.1)
[2022-04-23] MEDS: ATENOLOL 50 MG TABLET GT SCH (09:00)
[2022-04-23] MEDS: LISINOPRIL (5MG) 5 MG TABLET GT SCH (09:00)
[2022-04-23] MEDS: PANTOPRAZOLE 40 MG/PACK PACK GT SCH (09:12)
[2022-04-23] MEDS: VALPROIC ACID 250 MG/5 ML UDC GT SCH ×2 (09:13→17:20)
[2022-04-23] MEDS: MAGNESIUM OXIDE 400 MG TABLET GT SCH ×2 (09:13→17:20)
[2022-04-23] MEDS: MULTIVITAMINS,THERAGRAN 1 UDTAB TABLET GT SCH (09:13)
[2022-04-23] MEDS: CALCIUM CARB 600MG /VIT D 1 EACH TABLET GT SCH ×2 (09:13→17:20)
[2022-04-23] MEDS: CHOLECALCIFEROL 1,000 UNIT TABLET (VIT D3) GT SCH (09:13)
[2022-04-23] MEDS: LACTOBACILLUS RHAMNOSUS GG 1 EACH CAP.SPRINK GT SCH (09:15)
[2022-04-23] MEDS: HEPARIN SODIUM, PORCINE 5000 UNITS/1 ML VIAL SQ SCH ×2 (09:16→20:20)
[2022-04-23] MEDS: PROSOURCE / PROSTAT (PYXIS) 30 ML UDC GT SCH ×3 (09:17→17:20)
--- NOTE | 2022-04-23 11:04 | NUR ---
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 NEPHROSTOMY TUBE NOTED. DEFER TO PMD/NEPHRO FOR TUBE. RECOMMENDATIONS MADE FOR SKIN PROTECTION. DISCUSSED WITH NURSING STAFF. PT PLACED ON JHOANA ISOFLEX LOW AIRLOSS BED. M D IN AGREEMENT WITH PLAN OF CARE. Addendum: 04/23/22 at 1106 by CHAYO YOUSIF [id number] Amended: Links added.
[2022-04-23 12:00] VITALS: BP 117/58
[2022-04-23] MEDS: ACETAMINOPHEN 650 MG/20.3 ML UDC GT PRN (15:36)
--- NOTE | 2022-04-23 15:57 | NUR ---
RN NOTE TYLENOL WAS GIVEN TO PATIENT PER CAREGIVER REQUEST. CAREGIVER SAID WHEN PATIENT START PUTTING HER FINGER ON HER MOUTH OR START BITING HER LIPS IS BECAUSE PATIENT IS EXPERIENCING PAIN.
[2022-04-23 16:00] VITALS: BP 106/65
--- NOTE | 2022-04-23 17:00 | NUR ---
RN NOTE FAMILY REQUESTED A DIETARY CONSULT, PATIENT GLUCOSE IS HIGH WITH CURRENT FEEDING GLUCERNA, FAMILY SAID PATIENT IS ON DIABETIC SOURCE 45 ML/HR AT HOME. DIETARY CONSULT PLACED, CHARGE NURSE AWARE.
--- NOTE | 2022-04-23 19:29 | NUR ---
RN CLOSING NOTE PATIENT AWAKE IN BED RESTING. NON-VERBAL. NO S/S OF PAIN NOTED AT THIS TIME. ON 2L OXYGEN VIA NC, NO DISTRESS OR SHORTNESS OF BREATH NOTED. IV ACCESS RFA #20G INTACT, PATENT AND FLUSHING WELL. 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 PATIENT HAVE NEPHROSTOMY TUBE, IN PLACE, DRAINING WELL, OUTPUT 250ML. SCHEDULE MEDICATIONS ADMINISTERED. FALL AND SAFETY MEASURES IN PLACE, BED ALARM ON, BED IN LOW AND LOCK POSITION, CALL LIGHT AND TABLE WITHIN EASY REACH, SIDE RAILS UP X2. WILL ENDORSE TO CLINICAL LABORATORY MEDICAL DIRECTOR.
--- NOTE | 2022-04-23 19:58 | NUR ---
RN OPENING NOTES RECEIVED PT IN BED, SLEEPING ON SIDE. OPENS EYES AND NONVERBAL. ON NC 2LPM AND TOLERATING WELL. NO SOB NOTED. NO S/SX OF RESPIRATORY DISTRESS NOTED. IV ACCESS IN RFA #20G RUNNINS 1/2 NS @ 75 ML/HR. SAFETY PRECAUTIONS IN PLACE: BED IN LOWEST, LOCKED POSITION, SIDERAILS UPx2, AND BRAKES ON. TABLE AND CALL LIGHT WITHIN REACH. ALL NEEDS MET AT THIS TIME.
[2022-04-23 20:00] VITALS: BP 124/65
[2022-04-23] MEDS: IV 1/2NS 1000 ML 1,000 ML IV PRN (20:19)
[2022-04-24] VITALS (8 sets, daily range): BP systolic 98–136; BP diastolic 33–96
[2022-04-24] MEDS: BLOOD SUGAR DIAGNOSTIC 1 EACH STRIP IN SCH ×4 (00:34→17:50)
[2022-04-24] MEDS: INSULIN REGULAR, HUMAN 100 UNIT/ML 3 ML VIAL SQ PRN ×4 (00:37→17:51)
[2022-04-24] MEDS: VANCOMYCIN 0.75 GM in IV D5W 250 ML IV SCH (01:19)
[2022-04-24] MEDS: MEROPENEM 1 G in IV NS 0.9% 100 ML IV SCH ×2 (05:19→17:31)
--- NOTE | 2022-04-24 06:47 | NUR ---
RN CLOSING NOTES PT IN BED, SLEEPING ON SIDE, WITH CAREGIVER AT BEDSIDE. OPENS EYES AND NONVERBAL. ON NC 2LPM AND TOLERATING WELL. NO SOB NOTED. NO S/SX OF RESPIRATORY DISTRESS NOTED. IV ACCESS IN RFA #20G RUNNINS 1/2 NS @ 75 ML/HR. ALL ORDERS CARRIED OUT. ALL NEEDS MET. PT KEPT CLEAN AND DRY. SAFETY PRECAUTIONS IN PLACE: BED IN LOWEST, LOCKED POSITION, SIDERAILS UPx2, AND BRAKES ON. TABLE AND CALL LIGHT WITHIN REACH. WILL ENDORSE TO ONCOMING SHIFT FOR WILLIE.
--- NOTE | 2022-04-24 08:18 | NUR ---
RN OPENING NOTE PATIENT AWAKE IN BED RESTING. NON-VERBAL. NO S/S OF PAIN NOTED AT THIS TIME. ON 2L OXYGEN VIA NC, NO DISTRESS OR SHORTNESS OF BREATH NOTED. IV ACCESS RFA #20G INTACT, PATENT AND FLUSHING WELL. 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 FALL AND SAFETY MEASURES IN PLACE, BED ALARM ON, BED IN LOW AND LOCK POSITION, CALL LIGHT AND TABLE WITHIN EASY REACH, SIDE RAILS UP X2. WILL CONTINUE TO MONITOR.
[2022-04-24] MEDS: LACTOBACILLUS RHAMNOSUS GG 1 EACH CAP.SPRINK GT SCH (09:19)
[2022-04-24] MEDS: ATENOLOL 50 MG TABLET GT SCH (09:22)
[2022-04-24] MEDS: MAGNESIUM OXIDE 400 MG TABLET GT SCH ×2 (09:22→17:24)
[2022-04-24] MEDS: MULTIVITAMINS,THERAGRAN 1 UDTAB TABLET GT SCH (09:22)
[2022-04-24] MEDS: VALPROIC ACID 250 MG/5 ML UDC GT SCH ×2 (09:22→17:24)
[2022-04-24] MEDS: CALCIUM CARB 600MG /VIT D 1 EACH TABLET GT SCH ×2 (09:23→17:27)
[2022-04-24] MEDS: LISINOPRIL (5MG) 5 MG TABLET GT SCH (09:23)
[2022-04-24] MEDS: CHOLECALCIFEROL 1,000 UNIT TABLET (VIT D3) GT SCH (09:23)
[2022-04-24] MEDS: PANTOPRAZOLE 40 MG/PACK PACK GT SCH (09:23)
[2022-04-24] MEDS: HEPARIN SODIUM, PORCINE 5000 UNITS/1 ML VIAL SQ SCH ×2 (09:24→21:07)
[2022-04-24] MEDS: PROSOURCE / PROSTAT (PYXIS) 30 ML UDC GT SCH ×3 (09:26→17:27)
[2022-04-24 10:00] LABS: BASOPHILS % (AUTO) 0.3 % (0.0-2.0); EOSINOPHILS % (AUTO) 3.6 % (0.0-6.0); HEMATOCRIT 27 % (33-45); HEMOGLOBIN 8.6 g/dL (11.5-14.8); LYMPHOCYTES # (AUTO) 3.4 K/uL (0.8-4.8); LYMPHOCYTES % (AUTO) 36.4 % (20.0-44.0); MEAN CORPUSCULAR HGB CONC 32 g/dl (31.0-36.0); MEAN CORPUSCULAR VOLUME 98 fL (82-100); MONOCYTES # (AUTO) 1.1 K/uL (0.1-1.30); NEUTROPHILS # (AUTO) 4.4 K/uL (1.8-8.9); NEUTROPHILS % (AUTO) 47.7 % (43.0-81.0); PLATELET COUNT (AUTO) 410 K/uL (150-450); WHITE BLOOD COUNT (AUTO) 9.3 K/uL (4.3-11.0)
[2022-04-24 10:22] LABS: CALCIUM, SERUM 8.7 mg/dL (8.5-10.1); CREATININE 0.3 mg/dL (0.6-1.3); MAGNESIUM 1.9 mg/dL (1.8-2.4); PHOSPHORUS 3.1 mg/dL (2.5-4.9); POTASSIUM 3.7 mmol/L (3.5-5.1)
[2022-04-24] MEDS ORDERED: MERO1PIG IV ×2 (11:01)
[2022-04-24] MEDS: IV 1/2NS 1000 ML 1,000 ML IV PRN (12:32)
[2022-04-24 12:42] LABS: BAND % (MANUAL) 6 % (0.0-5.0); EOSINOPHILS % (MANUAL) 3 % (0-4); LYMPHOCYTES % (MANUAL) 28 % (16-48); MONOCYTES % (MANUAL) 5 % (0-11.0); NEUTROPHILS % (MANUAL) 58 (42-76)
--- NOTE | 2022-04-24 18:53 | NUR ---
RN CLOSING NOTE PATIENT AWAKE IN BED RESTING. NON-VERBAL. NO S/S OF PAIN NOTED AT THIS TIME. ON 2L OXYGEN VIA NC, NO DISTRESS OR SHORTNESS OF BREATH NOTED. IV ACCESS RFA #20G INTACT, PATENT AND FLUSHING WELL. PATIENT WITH EXTERNAL DESK EDITOR WITH CURRENT READING OF SR AND HR OF 96, NO CARDIAC DISTRESS NOTED. PATIENT HAVE NEPHROSTOMY TUBE, IN PLACE, DRAINING WELL, OUTPUT 350ML. SCHEDULE MEDICATIONS ADMINISTERED. PATIENT WAS TURNED AND REPOSITIONED PER PROTOCOL. FALL AND SAFETY MEASURES IN PLACE, BED ALARM ON, BED IN LOW AND LOCK POSITION, CALL LIGHT AND TABLE WITHIN EASY REACH, SIDE RAILS UP X2. WILL ENDORSE TO SINGE MACHINE OPERATOR.
--- NOTE | 2022-04-24 19:40 | NUR ---
CIVIL TRANSPORTATION ENGINEER OPENING NOTE RECEIVED PATIENT IN BED; AWAKE, NON-VERBAL, OPENS EYES. WITH O2 INHALATION @ 2LPM VIA NASAL CANNULA; TOLERATING WELL. NOT IN ANY FORM OF RESPIRATORY DISTRESS. WITH IV ACCESS ON RIGHT FOREARM 20g; PATENT AND INTACT INFUSING WITH 1/2 NS 1L REGULATED @ 75 ML/HR; FLUSHING WELL. ON TELE MONITOR WITH CURRENT READING OF SR HR-85 BPM. WITH G-TUBE IN PLACE; PATENT AND INTACT INFUSING WITH GLUCERNA 1.2 REGULATED @ 39 ML/HR. WITH NEPHROSTOMY TUBE IN PLACE, DRAINING WELL. FALL AND SAFETY MEASURES IMPLEMENTED: CALL LIGHT AND TABLE WITHIN REACH, SIDE RAILS UP X 2, BED IN LOWEST LOCKED POSITION. WILL CONTINUE PLAN OF CARE. Addendum: 04/25/22 at 0625 by LENY MCCOY RN WITH CAREGIVER @ BEDSIDE
[2022-04-25] MEDS: BLOOD SUGAR DIAGNOSTIC 1 EACH STRIP IN SCH ×4 (00:12→17:05)
[2022-04-25] MEDS: INSULIN REGULAR, HUMAN 100 UNIT/ML 3 ML VIAL SQ PRN ×4 (00:19→17:29)
--- NOTE | 2022-04-25 00:19 | NUR ---
RN NOTE BLOOD SUGAR CHECKED - 175 MG/DL; 3U INSULIN GIVEN SQ PER SLIDING SCALE. WILL CONTINUE TO MONITOR.
[2022-04-25] MEDS: ACETAMINOPHEN 650 MG/20.3 ML UDC GT PRN ×2 (02:50→17:01)
[2022-04-25] MEDS: MEROPENEM 1 G in IV NS 0.9% 100 ML IV SCH ×2 (05:10→17:05)
[2022-04-25] MEDS: IV 1/2NS 1000 ML 1,000 ML IV PRN ×2 (05:13→22:17)
[2022-04-25 05:33] VITALS: BP 122/70
--- NOTE | 2022-04-25 05:39 | NUR ---
RN NOTE BLOOD SUGAR CHECKED - 145 MG/DL; 2U INSULIN GIVEN SQ PER SLIDING SCALE. WILL CONTINUE TO MONITOR.
[2022-04-25 06:01] LABS: BASOPHILS % (AUTO) 0.2 % (0.0-2.0); EOSINOPHILS % (AUTO) 4.4 % (0.0-6.0); HEMATOCRIT 28 % (33-45); LYMPHOCYTES # (AUTO) 3.4 K/uL (0.8-4.8); LYMPHOCYTES % (AUTO) 42.4 % (20.0-44.0); MEAN CORPUSCULAR HGB CONC 32 g/dl (31.0-36.0); MEAN CORPUSCULAR VOLUME 97 fL (82-100); MONOCYTES % (AUTO) 12.4 % (2.0-12.0); NEUTROPHILS # (AUTO) 3.2 K/uL (1.8-8.9); NEUTROPHILS % (AUTO) 40.6 % (43.0-81.0); PLATELET COUNT (AUTO) 378 K/uL (150-450); RED BLOOD CELL COUNT(AUTO) 2.89 MIL/uL (4.0-5.2)
[2022-04-25 06:15] LABS: CALCIUM, SERUM 8.5 mg/dL (8.5-10.1); CREATININE 0.3 mg/dL (0.6-1.3); MAGNESIUM 1.9 mg/dL (1.8-2.4); PHOSPHORUS 3.7 mg/dL (2.5-4.9); POTASSIUM 3.7 mmol/L (3.5-5.1)
--- NOTE | 2022-04-25 07:00 | NUR ---
SPRING MAKER CLOSING NOTE PATIENT IN BED; AWAKE, NON-VERBAL, OPENS EYES. WITH O2 INHALATION @ 2LPM VIA NASAL CANNULA; WELL TOLERATED. IN NO APPARENT DISTRESS. WITH IV ACCESS ON RIGHT FOREARM 20g; PATENT AND INTACT INFUSING WITH 1/2 NS 1L REGULATED @ 75 ML/HR; FLUSHING WELL. ON TELE MONITOR WITH CURRENT READING OF SR HR-86 BPM. WITH G-TUBE IN PLACE; PATENT AND INTACT INFUSING WITH GLUCERNA 1.2 REGULATED @ 39 ML/HR. WITH NEPHROSTOMY TUBE IN PLACE, DRAINING WELL. FALL AND SAFETY MEASURES MAINTAINED: HEAD OF BED ELEVATED, CALL LIGHT AND TABLE WITHIN REACH, SIDE RAILS UP X 2, BED IN LOWEST LOCKED POSITION. ENDORSED TO EMELY PANDYA FOR WILLIE.
--- NOTE | 2022-04-25 07:30 | NUR ---
RN Opening Note Mot able to assess pts mental status, patient is non-verbal, opens eyes, seems to be aware of surroundings but no able to express concerns. Patient shows no signs of distress or discomfort able to cough, VSS on 2lt./min. IV running as ordered with no signs of infiltration. Will administer medications as prescribed, provide care as needed and monitor throughout shift. Personal nurse medical assistant float at bedside providing gm video. All safety precautions taken, call light and table within reach, bed at lowest position.
[2022-04-25 08:00] VITALS: BP 110/68
[2022-04-25] MEDS: PANTOPRAZOLE 40 MG/PACK PACK GT SCH (08:25)
[2022-04-25] MEDS: MULTIVITAMINS,THERAGRAN 1 UDTAB TABLET GT SCH (08:25)
[2022-04-25] MEDS: CHOLECALCIFEROL 1,000 UNIT TABLET (VIT D3) GT SCH (08:25)
[2022-04-25] MEDS: LACTOBACILLUS RHAMNOSUS GG 1 EACH CAP.SPRINK GT SCH (08:25)
[2022-04-25] MEDS: MAGNESIUM OXIDE 400 MG TABLET GT SCH ×2 (08:25→17:01)
[2022-04-25] MEDS: LISINOPRIL (5MG) 5 MG TABLET GT SCH (08:26)
[2022-04-25] MEDS: ATENOLOL 50 MG TABLET GT SCH (08:27)
[2022-04-25] MEDS: CALCIUM CARB 600MG /VIT D 1 EACH TABLET GT SCH ×2 (08:28→17:01)
[2022-04-25] MEDS: VALPROIC ACID 250 MG/5 ML UDC GT SCH ×2 (08:28→17:01)
[2022-04-25] MEDS: HEPARIN SODIUM, PORCINE 5000 UNITS/1 ML VIAL SQ SCH ×2 (08:30→21:05)
[2022-04-25] MEDS: PROSOURCE / PROSTAT (PYXIS) 30 ML UDC GT SCH ×3 (08:36→17:01)
[2022-04-25 12:00] VITALS: BP 89/50
[2022-04-25 16:00] VITALS: BP 82/53
--- NOTE | 2022-04-25 18:43 | NUR ---
RN Closing Report. PT AOx4 able not able to express her own concerns, patient shows no signs of discomfort, using FLACC score pts pain is 0/10. Patient remained safe throughout shift. All safety precautions taken, call light and table within reach, bed at lowest position. IV fluids running as prescribed, feedings as ordered, provided NG Tube care as ordered, nephrostomy tube no signs dislodged. IV with no signs of infiltration, no pain at site reported.
[2022-04-25 20:00] VITALS: BP 101/63
--- NOTE | 2022-04-25 20:09 | NUR ---
RN OPENING NOTES RECEIVED PT IN BED, EYES OPEN BUT NONVERBAL WITH SISTER AND CAREGIVER AT BEDSIDE. ON NC 2LPM AND TOLERATING WELL. NO SOB NOTED. NO S/SX OF RESPIRATORY DISTRESS NOTED. IV ACCESS IN RFA #20G 1/2 NS @ 75 ML/HR. SAFETY PRECAUTIONS IN PLACE: BED IN LOWEST, LOCKED POSITION, SIDERAILS UPx2, AND BRAKES ON. TABLE AND CALL LIGHT WITHIN REACH. ALL NEEDS MET AT THIS TIME.
[2022-04-26] VITALS: BP 104/59
[2022-04-26] MEDS: BLOOD SUGAR DIAGNOSTIC 1 EACH STRIP IN SCH ×4 (00:25→17:08)
[2022-04-26] MEDS: INSULIN REGULAR, HUMAN 100 UNIT/ML 3 ML VIAL SQ PRN ×3 (00:29→18:26)
[2022-04-26 04:00] VITALS: BP 115/55
[2022-04-26] MEDS: MEROPENEM 1 G in IV NS 0.9% 100 ML IV SCH ×2 (05:20→17:06)
[2022-04-26] MEDS: ACETAMINOPHEN 650 MG/20.3 ML UDC GT PRN ×2 (05:41→17:40)
--- NOTE | 2022-04-26 06:49 | NUR ---
RN CLOSING NOTES PT IN BED, EYES OPEN BUT NONVERBAL WITH CAREGIVER AT BEDSIDE. ON NC 2LPM AND TOLERATING WELL. NO SOB NOTED. NO S/SX OF RESPIRATORY DISTRESS NOTED. IV ACCESS IN RFA #20G 1/2 NS @ 75 ML/HR. ALL ORDERS CARRIED OUT. ALL NEEDS MET. PT KEPT CLEAN AND DRY. SAFETY PRECAUTIONS IN PLACE: BED IN LOWEST, LOCKED POSITION, SIDERAILS UPx2, AND BRAKES ON. TABLE AND CALL LIGHT WITHIN REACH. WILL ENDORSE TO ONCOMING SHIFT FOR WILLIE.
[2022-04-26 07:07] LABS: BASOPHILS % (AUTO) 0.5 % (0.0-2.0); EOSINOPHILS % (AUTO) 4.8 % (0.0-6.0); HEMATOCRIT 28 % (33-45); HEMOGLOBIN 8.9 g/dL (11.5-14.8); LYMPHOCYTES # (AUTO) 3.5 K/uL (0.8-4.8); LYMPHOCYTES % (AUTO) 39.1 % (20.0-44.0); MEAN CORPUSCULAR HGB CONC 32 g/dl (31.0-36.0); MEAN CORPUSCULAR VOLUME 97 fL (82-100); MONOCYTES # (AUTO) 1.4 K/uL (0.1-1.30); MONOCYTES % (AUTO) 16.1 % (2.0-12.0); NEUTROPHILS # (AUTO) 3.5 K/uL (1.8-8.9); NEUTROPHILS % (AUTO) 39.5 % (43.0-81.0); PLATELET COUNT (AUTO) 417 K/uL (150-450); RED BLOOD CELL COUNT(AUTO) 2.88 MIL/uL (4.0-5.2); WHITE BLOOD COUNT (AUTO) 8.9 K/uL (4.3-11.0)
[2022-04-26 07:15] LABS: CALCIUM, SERUM 8.3 mg/dL (8.5-10.1); CREATININE 0.4 mg/dL (0.6-1.3); MAGNESIUM 1.7 mg/dL (1.8-2.4); PHOSPHORUS 3.8 mg/dL (2.5-4.9); POTASSIUM 3.8 mmol/L (3.5-5.1)
--- NOTE | 2022-04-26 07:30 | NUR ---
RN Receiving Report. Not able to evaluate pts mental status, pt is non-verbal. Using FLACC pts pain is 1/10. Patient shows no signs of distress or discomfort. Discussed plan of care and plan of care with caregiver at bedside. Feeding and fluids running as ordered. All safety precautions taken with patient, call light and table within reach, bed at lowest position. Will continue to monitor throughout shift and provide care as needed.
[2022-04-26 08:40] VITALS: BP 108/40
[2022-04-26] MEDS: CALCIUM CARB 600MG /VIT D 1 EACH TABLET GT SCH ×2 (08:48→17:07)
[2022-04-26] MEDS: PANTOPRAZOLE 40 MG/PACK PACK GT SCH (08:48)
[2022-04-26] MEDS: MAGNESIUM OXIDE 400 MG TABLET GT SCH ×2 (08:49→17:07)
[2022-04-26] MEDS: CHOLECALCIFEROL 1,000 UNIT TABLET (VIT D3) GT SCH (08:49)
[2022-04-26] MEDS: PROSOURCE / PROSTAT (PYXIS) 30 ML UDC GT SCH ×2 (08:49→12:13)
[2022-04-26] MEDS: MULTIVITAMINS,THERAGRAN 1 UDTAB TABLET GT SCH (08:49)
[2022-04-26] MEDS: ATENOLOL 50 MG TABLET GT SCH (08:50)
[2022-04-26] MEDS: LACTOBACILLUS RHAMNOSUS GG 1 EACH CAP.SPRINK GT SCH (08:50)
[2022-04-26] MEDS: LISINOPRIL (5MG) 5 MG TABLET GT SCH (08:51)
[2022-04-26] MEDS: VALPROIC ACID 250 MG/5 ML UDC GT SCH ×2 (08:52→17:07)
[2022-04-26] MEDS: HEPARIN SODIUM, PORCINE 5000 UNITS/1 ML VIAL SQ SCH (08:53)
[2022-04-26 11:50] VITALS: BP 123/71
--- NOTE | 2022-04-26 11:51 | NUR ---
WOUND CARE CONSULT: PT SEEN FOR LEFT ANTERIOR SHOULDER EXCORIATIONS/LESIONS WHICH ARE PINK IN COLOR, NO DRAINAGE OR ERYTHEMA, UNKNOWN ETIOLOGY. DEFER TO PMD FOR LESIONS.
[2022-04-26] MEDS: Magnesium 1GM/D5W 100ML PREMIX 100 ML IV SCH ×2 (12:13→13:16)
[2022-04-26 13:42] LABS: BAND % (MANUAL) 8 % (0.0-5.0); EOSINOPHILS % (MANUAL) 4 % (0-4); LYMPHOCYTES % (MANUAL) 30 % (16-48); MONOCYTES % (MANUAL) 20 % (0-11.0); MYELOCYTES % 2 % (0-0); NEUTROPHILS % (MANUAL) 36 (42-76)
[2022-04-26 16:08] VITALS: BP 110/84
[2022-04-26] MEDS ORDERED: PROSOURCE / PROSTAT (PYXIS) 30 ML UDC GT SCH (17:00)
[2022-04-26 17:34] VITALS: BP 110/84
--- NOTE | 2022-04-26 19:26 | NUR ---
RN Closing Note Not able to assess pts mental status. Sister at bedside stating pts face is a bit swollen, stating scratch on upper shoulder is better and eyes are better. I am not able to see any abnormalities on pts face, normal asymmetry noted. Called Pts board and [facility] [phone] and provided discharge report, per caser up IV antibiotics have been arranged with Home Health and facility has confirmed arrangement. Patient stable for discharge, per . no further evaluation needed, pt stable for discharge. Patient remained safe throughout shift, all safety precautions taken, call light and table within reach. Pt ready for discharge pending sweet pickle maker from transportation crew. Sister signed discharge paperwork and agrees with discharge.
--- NOTE | 2022-04-26 19:43 | NUR ---
RN opening Note pt awaiting pickling grader all safety precautions taken, call light and table within reach. Pt ready for discharge pending pickling grader from transportation crew. Sister signed discharge paperwork and agrees with discharge.
--- NOTE | 2022-04-26 20:31 | NUR ---
rn note pt picked up by ambulance. report given to emt. paperwork provided.
== END 2022-04-26 21:00 | disposition home health service (06) | DRG 720 ==
LOC: ER 22:43 → TRANSITION 04-21 04:59 → TELE 04-21 12:23
PROVIDERS: ADMIT Internal Medicine; ATTEND Internal Medicine
DX: A41.9 Sepsis, unspecified organism (principal); N17.0 Acute kidney failure with tubular necrosis; G93.41 Metabolic encephalopathy; E87.20 Acidosis, unspecified; J15.6 Pneumonia due to other Gram-negative bacteria; E87.0 Hyperosmolality and hypernatremia; L89.156 Pressure-induced deep tissue damage of sacral region; D63.8 Anemia in other chronic diseases classified elsewhere; E11.22 Type 2 diabetes mellitus with diabetic chronic kidney disease; E87.6 Hypokalemia; N39.0 Urinary tract infection, site not specified; G40.909 Epilepsy, unspecified, not intractable, without status epilepticus; Z79.4 Long term (current) use of insulin; Z87.440 Personal history of urinary (tract) infections; Z20.822 Contact with and (suspected) exposure to COVID-19; N18.9 Chronic kidney disease, unspecified; Z93.1 Gastrostomy status; G80.9 Cerebral palsy, unspecified; Z93.6 Other artificial openings of urinary tract status; M81.0 Age-related osteoporosis without current pathological fracture
CPT/HCPCS: 36415; 71045-TC; 80048-TC; 80061-TC; 80076-TC; 80202-TC; 81001; 82465-TC; 82607-TC; 82962-TC; 83540-TC; 83605-TC; 83690-TC; 83735-TC; 84100-TC; 84443-TC; 84484-TC; 85025-TC; 85730-TC; 87040-TC; 87081-TC; 87086-TC; 87186-TC; 94799-TC; A6403; C9803; G0378; J0692; J1644; J1815; J2185; J3370; J3475; J3490; J7030; J7040; J7042; J7050; J7060